=== PATIENT | male | born 1935 | race Caucasian/White ===

== ENCOUNTER 2023-06-24 14:13 | Outpatient (CLI) | payer MEDICARE, SELFPAY ==
[2023-06-24 14:38] LABS: Basophils Percent Auto 0.3 % (0.2-1.2); Eosinophils Absolute Auto 0.3 K/mm3 (0-0.3); Eosinophils Percent Auto 4.1 % (0-4.4); Hematocrit 28.5 % (42.0-52.0); Hemoglobin 8.9 g/dL (14.0-18.0); Immature Granulocyte Absolute 0.04 K/mm3 (0.00-0.031); Immature Granulocyte Percent A 0.6 % (0-0.5); Lymphocytes Absolute Auto 0.86 K/mm3 (0.9-3.2); Lymphocytes Percent Auto 13.5 % (18.3-44.2); Mean Corpuscular HGB Conc 31.2 g/dl (32-36); Mean Corpuscular Hemoglobin 30.9 pg (26-34); Mean Platelet Volume 9.5 fl (7.4-10.4); Monocytes Absolute Auto 0.7 K/mm3 (0.1-0.6); Monocytes Percent Auto 11.6 % (2.6-8.5); Neutrophils Absolute Auto 4.5 K/mm3 (1.3-6.7); Neutrophils Percent Auto 69.9 % (45.5-73.1); Platelet Count Result 194 k/mm3 (150-375); Red Blood Count 2.88 M/mm3 (4.6-6.20); Red Cell Distribution Width 15.8 % (11.5-14.5); White Blood Count 6.4 K/mm3 (4.5-10.0)
[2023-06-24 16:58] LABS: Alanine Aminotransferase 24 U/L (6-50); Alkaline Phosphatase 71 U/L (38-126); Anion Gap 7 mmol/L (8-16); Aspartate Amino Transferase 32 U/L (17-59); Bilirubin,Total 0.5 mg/dL (0.2-1.3); Blood Urea Nitrogen 42 mg/dL (9-20); Carbon Dioxide 27 mmol/L (22-30); Chloride 104 mmol/L (98-107); Estimated Glomerular Filt Rate 34; Glucose 177 mg/dL (65-110); Iron 121 ug/dL (49-181); Lactate Dehydrogenase 180 U/L (120-246); Potassium 3.9 mmol/L (3.4-5.0); Sodium 138 mmol/L (137-145)
[2023-06-24 17:09] LABS: Percent Iron Saturation 36 % (20-50)
[2023-06-24 18:06] LABS: Folic Acid > 20.0 ng/mL (2.76->20)
[2023-06-27 14:49] LABS: Methylmalonic Acid 306 nmol/L (87-318)
== END 2023-06-24 14:14 | disposition home or self-care (01) ==
LOC: ANHLAB 14:21
PROVIDERS: Nurse Practitioner Family; PCP Internal Medicine; Visit Provider Internal Medicine Hematology & Oncology
DX: D50.9 Iron deficiency anemia, unspecified (principal)
CPT/HCPCS: 36415; 80053; 82607; 82728; 82746; 83540; 83550; 83615; 83921; 85025

== ENCOUNTER 2023-07-20 09:56 | Outpatient (CLI) | payer MEDICARE, SELFPAY ==
[2023-07-20 10:16] LABS: Basophils Percent Auto 0.5 % (0.2-1.2); Eosinophils Absolute Auto 0.3 K/mm3 (0-0.3); Eosinophils Percent Auto 5.1 % (0-4.4); Hematocrit 29.9 % (42.0-52.0); Hemoglobin 9.2 g/dL (14.0-18.0); Immature Granulocyte Absolute 0.03 K/mm3 (0.00-0.031); Immature Granulocyte Percent A 0.5 % (0-0.5); Lymphocytes Absolute Auto 0.69 K/mm3 (0.9-3.2); Lymphocytes Percent Auto 10.4 % (18.3-44.2); Mean Corpuscular HGB Conc 30.8 g/dl (32-36); Mean Corpuscular Hemoglobin 31.5 pg (26-34); Mean Corpuscular Volume 102.4 fl (80-100); Mean Platelet Volume 9.5 fl (7.4-10.4); Monocytes Absolute Auto 0.6 K/mm3 (0.1-0.6); Monocytes Percent Auto 9.4 % (2.6-8.5); Neutrophils Absolute Auto 4.9 K/mm3 (1.3-6.7); Neutrophils Percent Auto 74.1 % (45.5-73.1); Platelet Count Result 236 k/mm3 (150-375); Red Blood Count 2.92 M/mm3 (4.6-6.20); Red Cell Distribution Width 16.8 % (11.5-14.5); White Blood Count 6.6 K/mm3 (4.5-10.0)
[2023-07-20 11:31] LABS: Appearance Urine Clear (Clear); Bilirubin Urine Negative (Negative); Blood Urine Negative (Negative); Color Urine Yellow (Yellow); Glucose Urine UA 3+ mg/dL (Negative); Ketones Urine Negative (Negative); Leukocyte Esterase Ur Negative LEU/UL (Negative); Nitrate Urine Negative (Negative); Protein Urine Negative (Negative); Specific Grav Ur 1.014 (1.001-1.035); Urobilinogen Urine 0.2 mg/dL (<2.0); pH Urine 5.5 (5.0-9.0)
[2023-07-20 11:39] LABS: Potassium 4.1 mmol/L (3.4-5.0)
[2023-07-20 11:41] LABS: Add Urine Microscopic? NO; Creatinine Urine 46.1 mg/dL
[2023-07-20 11:50] LABS: Alanine Aminotransferase 24 U/L (6-50); Albumin Level 3.8 g/dL (3.5-5.1); Alkaline Phosphatase 84 U/L (38-126); Anion Gap 11 mmol/L (8-16); Aspartate Amino Transferase 33 U/L (17-59); Bilirubin,Total 0.6 mg/dL (0.2-1.3); Blood Urea Nitrogen 42 mg/dL (9-20); Calcium 8.9 mg/dL (8.4-10.2); Carbon Dioxide 23 mmol/L (22-30); Chloride 109 mmol/L (98-107); Estimated Glomerular Filt Rate 30; Glucose 174 mg/dL (65-110); Phosphorus 3.8 mg/dL (2.5-4.5); Sodium 143 mmol/L (137-145); Uric Acid 6.2 mg/dL (3.5-8.5)
[2023-07-20 11:52] LABS: MALB Creatinine Ratio < 13.0 mg/g (0-30); Microalbumin Urine Random < 6.0 mg/L (0-16.7)
[2023-07-20 11:52] LABS: Vitamin D 25 Hydroxy 42.8 ng/mL
[2023-07-20 11:57] LABS: Parathyroid Intact 155.4 pg/mL (7.5-53.5)
== END 2023-07-20 09:57 | disposition home or self-care (01) ==
PROVIDERS: Visit Provider Internal Medicine Hematology & Oncology
DX: I12.9 Hypertensive chronic kidney disease with stage 1 through stage 4 chronic kidney disease, or unspecified chronic kidney disease (principal); N18.30 Chronic kidney disease, stage 3 unspecified; E55.9 Vitamin D deficiency, unspecified; E11.65 Type 2 diabetes mellitus with hyperglycemia
CPT/HCPCS: 36415; 80053; 81003; 82043; 82306; 83970; 84100; 84550; 85025

== ENCOUNTER 2024-03-14 06:35 | Outpatient (CLI) | payer MEDICARE, SELFPAY ==
--- NOTE | ~2024-03-14 | MR_ITS ---
MRI of the lumbar spine Clinical History: Radiculopathy Technique: Axial T2-weighted images, and sagittal T1-weighted, T2-weighted, and and T2 fat-sat images were acquired. Findings: There is 9 mm anterolisthesis of L4 over L5. No fracture identified. No suspicious bone mar row signal reality seen. At L1-L2, there is minimal disc bulge with moderate facet arthropathy. No central canal stenosis or n eural foraminal narrowing. At L2-L3, there is minimal disc bulge with moderate facet arthropathy. No central canal stenosis or n eural foraminal narrowing. L3-L4, there is mild disc bulge with moderate facet arthropathy. No central canal stenosis. There is minimal bilateral neural foraminal narrowing. At L4-L5, there is advanced degenerative disc narrowing. There is diffuse disc bulge/uncovering with severe facet arthropathy, and associated moderate severe spinal canal stenosis/thecal sac compression . There is moderate to advanced bilateral neural foraminal narrowing. At L5-S1, there is minimal disc bulge with moderate facet arthropathy. No central canal stenosis. The re is minimal right neural foraminal narrowing. Paravertebral soft tissues are unremarkable. Impression: 9 mm anterolisthesis of L4 over L5, with severe degenerative spondylosis at this level. Mild degenerative change in the remainder of the lumbar spine, as above. Reviewed, dictated and finalized at [facility]. Impression: 9 mm anterolisthesis of L4 over L5, with severe degenerative spondylosis at thi s level. Mild degenerative change in the remainder of the lumbar spine, as above.
== END 2024-03-14 06:36 | disposition home or self-care (01) ==
PROVIDERS: PCP Internal Medicine; Visit Provider Internal Medicine
DX: M54.16 Radiculopathy, lumbar region (principal)
CPT/HCPCS: 72148

== ENCOUNTER 2024-11-28 10:51 | Outpatient (CLI) | payer MEDICARE, SELFPAY ==
[2024-11-28 12:27] LABS: Add Urine Microscopic? NO; Appearance Urine Clear (Clear); Bilirubin Urine Negative (Negative); Blood Urine Negative (Negative); Color Urine Yellow (Yellow); Glucose Urine UA 2+ mg/dL (Negative); Ketones Urine Negative (Negative); Leukocyte Esterase Ur Negative LEU/UL (Negative); Nitrate Urine Negative (Negative); Protein Urine Negative (Negative); Specific Grav Ur 1.011 (1.001-1.035); Urobilinogen Urine 0.2 mg/dL (<2.0)
--- OUTSIDE RECORDS SUMMARY | 2024-11-28 12:35 | XMS_ITS ---
Author Organization [facility] Address [address] [place] [address] Care Team Providers Care Software Engineer Web Applications Name Role Phone Edilia Donaldson [phone] MEDICATIONS Medication SIG (Take, Route, Fr equency, Duration) Notes Start Date End Date Status Lisinopril 5 MG 1/2 Orally Once a day for 90 days 08/01/2024 Active Encounters Encounter Location Date Provider Diagnosis [facility] [place] [facility] [address] [place] [address] 08/01/2024 Edilia Donaldson PLAN OF TREATMENT Medication Medication Name Sig Start Date Stop Date Notes Lisinopril 5 MG 1/2 Orally Once a day for 90 days 08/01/20 24 Next Appt Details Provider Name:Edilia silveira, 12/05/2024 03:15:00 PM, [address], [address], [place], [address], Progress Notes * LOAN AGUILERADOB:1935 (89 yo M)Acc No.[id number]:08/01/2024 Patient: LOAN AGUILERA :1935 Age:89 Y Sex:Male Address:[address] [place], [address] * Refills Start Lisinopril Tablet, 5 MG, Orally, 90, 1/2, Once a day, 90 days, Refills=1 * * Date:
[2024-11-28 12:36] LABS: Albumin Level 3.8 g/dL (3.5-5.1); Anion Gap 7 mmol/L (4-12); Blood Urea Nitrogen 37 mg/dL (9-20); Calcium 8.6 mg/dL (8.4-10.2); Carbon Dioxide 30 mmol/L (22-30); Chloride 103 mmol/L (98-107); Estimated Glomerular Filt Rate 38; Glucose 201 mg/dL (65-110); Phosphorus 3.4 mg/dL (2.5-4.5); Potassium 3.7 mmol/L (3.4-5.0); Sodium 140 mmol/L (137-145)
--- OUTSIDE RECORDS SUMMARY | 2024-11-28 12:36 | XMS_ITS | CONTINUITY OF CARE DOCUMENT ---
Author Name dat daugherty Address Unknown Organization [facility] Address [address] [place] [address] Phone [phone] Care Team Providers Care Medical Billing And Coding Instructor Name Role Phone Kelli BARRAZA, Adilson Unavailable [phone] DANE COMER MD Unavailable [phone] KORIN BARRAZA, RHONDA Unavailable PROBLEMS Condition Status Date Provider Notes Pulmonary hypertension active Adilson Pereira MD HTN;NEG DUPLEX active Adilson Pereira MD did not want rprm BPH active Adilson Pereira MD Diabetes mellitus; active Adilson Pereira MD on farcis and turlity Hyperlipidemia;with high crp and lpa 128 active Adilson Pereira MD ANEMIA, IRON DEFICIENCY;macrocytois active Adilson Pereira MD nml 12 a nd folate Vitamin D deficiency active Adilson Iglesias Knee pain, right, chronic active dAilson ramirez MD Screening active Adilson Pereira MD Tobacco use, quit active Adilson Pereira MD t oo old to screen Renal disease, chronic, sevree;NEG US AND DUPLEX active Adilson charles da deniided, on farxaga and petra, neg uacr Sleep apnea;UARS active Adilson Pereira MD Pre-operative respiratory examination completed - Adilson Pereira MD Diastolic CHF active Abena Whitley STEWARD/STEWARDESS SECOND on f arcxag, insuranc not pay for kerenis o n petra Hyperkalemia; completed - Adilson Pereira MD Abnormal pulmonary function tests completed - Adilson Pereira MD Hypertriglyceridemia active Adilson Iglesias Atrial fibrillation;nml tsh active Emma Ellington NP Valvular heart disease active Adilson Pereira MD BACK PAIN;CHRONIC active Adilson Pereira MD PVD; active Adilson Pereira MD Granulomatous lung disease active Adilson bobby MD Pre op cardiovascular exam completed 04/13 - Adilson Pereira MD ENCOUNTERS Date Type Provider Location Encounter Diag nosis - In-person encounter Office Visit Adilson Pereira MD [facility] Diabetes mellitus;Pre op cardiovascular examGranulomatous lung disease - In-person encounter Office Visit Adilson Pereira MD [facility] Diastolic CHF - In-person encounter Office Visit Adilson Pereira MD [facility] Diastolic CHFBACK PAIN;CHRONICPVD; - In-person encounter Office Visit Adilson Pereira MD [facility] Screening - In-person encounter Office Visit Adilson Pereira MD [facility] - In-person encounter Office Visit Adilson Pereira MD [facility] ANEMIA, IRON DEFICIENCY;macrocytoisRenal disease, chronic, sevree;NEG US AND DUPLEX - In-person encounter Office Visit Adilson Pereira MD [facility] - In-person encounter Office Visit Adilson Pereira MD [facility] - In-person encounter Office Visit Adilson Pereira MD [facility] HTN;NEG DUPLEXDiabetes mellitus;Renal disease, chronic, sevree;NEG US AND DUPLEXDiastolic CHF - In-person encounter Office Visit Adilson Pereira MD [facility] Hyperkalemia;Abnormal pulmonary function testsValvular heart disease - In-person encounter Office Visit Adilson Pereira MD [facility] - In-person encounter Office Visit Adilson Pereira MD [facility] Atrial fibrillation;nml tsh - In-person encounter Office Visit Adilson Pereira MD [facility] ANEMIA, IRON DEFICIENCY;macrocytoisHypertr iglyceridemia - In-person encounter Office Visit Adilson Pereira MD [facility] ScreeningTobacco use, quit - In-person encounter Office Visit Adilson Pereira MD [facility] HTN;NEG DUPLEXDiabetes mellitus;Diastolic CHF - In-person encounter Office Visit Adilson Pereira MD [facility] Pre-operative respiratory examination - In-person encounter Office Visit Adilson Pereira MD [facility] Hyperlipidemia;with high crp and lpa 128ANEMIA, IRON DEFICIENCY;macrocytoisRenal disease, chronic, sevree;NEG US AND DUPLEXSleep apnea;UARSDiastolic CHF - In-person encounter Office Visit Adilson Pereira MD [facility] HTN;NEG DUPLEXBPHDiabetes mellitus;Hyperlipidemia;with high crp and lpa 128ANEMIA, IRON DEFICIENCY;macrocytoisVitamin D deficiencyKnee pain, right, chronicScreeningTobacco use, quitRenal disease, chronic, sevree;NEG US AND DUPLEXSleep apnea;UARS VITAL SIGNS Date Observation Value Provider Body Mass Index (Ratio) 21.24 kg/m2 Katrin Pereira MD blood pressure, diastolic 60 mm[Hg] Nery Hackett blood pressure, systolic 107 mm[Hg] Aminah Hackett oxygen saturation, oximetry 98 % Geno Hackett pulse rate 71 /min Geno Hackett respiratory rate E&M 12 /min Geno Hackett weight E&M 161 [lb_av] Geno Hackett height E&M 73 [in_i] Geno Hackett blood pressure, cuff size regular An shahab Hackett Body Mass Index (Ratio) 21.90 kg/m2 Juhi Smithjamie GRANDA respiratory rate E&M 12 /min Jayla Telles oxygen saturation, oximetry 100 % Jayla Telles pulse rate 83 /min Jayla Telles blood pressure, cuff size regular Manny mendoza Telles blood pressure, diastolic 58 mm[Hg] Manny mendoza Telles blood pressure, systolic 112 mm[Hg] Tab ithraoul Telles weight E&M 166 [lb_av] Jayla Telles height E&M 73 [in_i] Jayla Telles Body Mass Index (Ratio) 22.29 kg/m2 Katrin Pereira MD blood pressure, diastolic 62 mm[Hg] Leni nkLoggertrude blood pressure, systolic 124 mm[Hg] Hillary kLog blood pressure, cuff size regular Ke rri Chintanuenenfeldyanet blood pressure, diastolic 62 mm[Hg] Ke rri Gruenenfelder blood pressure, systolic 124 mm[Hg] Ker ri Crownenfangelique oxygen saturation, oximetry 100 % Brea Yan respiratory rate E&M 12 /min Brea morris pulse rate 91 /min Brea Benjamin lder weight E&M 169 [lb_av] Brea Crownejade lder height E&M 73 [in_i] Brea Chintanuenenfe lder Body Mass Index (Ratio) 22.29 kg/m2 Katrin Pereira MD pulse rate 84 /min [facility] blood pressure, cuff size regular [facility] blood pressure, diastolic 58 mm[Hg] [facility] blood pressure, systolic 116 mm[Hg] [facility] oxygen saturation, oximetry 98 % [facility] respiratory rate E&M 14 /min [facility] [place] weight E&M 169 [lb_av] [facility] height E&M 73 [in_i] [facility] Body Mass Index (Ratio) 22.16 kg/m2 Katrin Pereira MD pulse rate 77 /min [facility] blood pressure, cuff size regular [facility] blood pressure, diastolic 64 mm[Hg] [facility] blood pressure, systolic 137 mm[Hg] [facility] respiratory rate E&M 16 /min [facility] ille oxygen saturation, oximetry 98 % [facility] weight E&M 168 [lb_av] [facility] height E&M 73 [in_i] [facility] Body Mass Index (Ratio) 22.43 kg/m2 Katrin Pereira MD respiratory rate E&M 15 /min [facility] [place] blood pressure, cuff size regular [facility] blood pressure, diastolic 58 mm[Hg] [facility] blood pressure, systolic 108 mm[Hg] [facility] oxygen saturation, oximetry 98 % [facility] pulse rate 96 /min [facility] weight E&M 170 [lb_av] [facility] height E&M 73 [in_i] [facility] Body Mass Index (Ratio) 22.16 kg/m2 Katrin Pereira MD blood pressure, cuff size regular Ja rret blood pressure, diastolic 63 mm[Hg] Ja rret blood pressure, systolic 116 mm[Hg] Guille ret pulse rate 74 /min [facility] oxygen saturation, oximetry 99 % respiratory rate E&M 12 /min [facility] weight E&M 168 [lb_av] y height E&M 73 [in_i] [facility] Body Mass Index (Ratio) 22.43 kg/m2 Katrin Pereira MD blood pressure, cuff size regular Ke rri [facility] blood pressure, diastolic 70 mm[Hg] Ke rri Gruenenfelder blood pressure, systolic 122 mm[Hg] [facility], oximetry 98 % [facility] rate E&M 14 /min [facility] pulse rate 73 /min Brea Benjamin [facility] weight E&M 170 [lb_av] Brea Gruenenfe er height E&M 73 [in_i] Brea Gruenenfe [facility] Body Mass Index (Ratio) 23.09 kg/m2 Katrin Pereira MD blood pressure, diastolic 70 mm[Hg] Li nkLogic blood pressure, systolic 115 mm[Hg] Hillary kLogic blood pressure, diastolic 70 mm[Hg] Sa ra Cortes blood pressure, systolic 115 mm[Hg] Jaspreet a Cortes oxygen saturation, oximetry 97 % Michelle Cortes respiratory rate E&M 14 /min Michelle Si ms pulse rate 63 /min Michelle Cortes blood pressure, cuff size regular Sa ra Cortes weight E&M 175 [lb_av] Michelle Cortes height E&M 73 [in_i] Michelle Cortes Body Mass Index (Ratio) 22.95 kg/m2 Katrin Pereira MD blood pressure, cuff size large Ke rri Gruenenfelder blood pressure, diastolic 60 mm[Hg] Ke rri Gruenenfelder blood pressure, systolic 122 mm[Hg] Ker ri Gruenenfelder oxygen saturation, oximetry 98 % Brea Gruenenfelder respiratory rate E&M 16 /min Brea G ruenenfelder pulse rate 77 /min Brea Gruenenfe lder weight E&M 174 [lb_av] Brea Gruenenfe lder height E&M 73 [in_i] Brea Gruenenfe er Body Mass Index (Ratio) 23.09 kg/m2 Katrin Pereira MD blood pressure, cuff size large Ke rri Gruenenfelder blood pressure, diastolic 60 mm[Hg] Ke rri Gruenenfelder blood pressure, systolic 102 mm[Hg] Ker ri Gruenenfelder oxygen saturation, oximetry 98 % Brea Gruenenfelder respiratory rate E&M 16 /min Brea G ruenenfelder pulse rate 63 /min Brea Gruenenfe lder weight E&M 175 [lb_av] Brea Gruenenfe lder height E&M 73 [in_i] Brea Gruenenfe lder Body Mass Index (Ratio) 24.01 kg/m2 Katrin Pereira MD oxygen saturation, oximetry 95 % Nichelle Hansen respiratory rate E&M 16 /min Nichelle Hansen pulse rate 78 /min Nichelle hurd blood pressure, cuff size regular Cy dulce Hansen blood pressure, diastolic 62 mm[Hg] Cy dulce Hansen blood pressure, systolic 118 mm[Hg] Leanne Hansen weight E&M 182 [lb_av] Nichelle hurd height E&M 73 [in_i] Nichelle Blanco l Body Mass Index (Ratio) 25.06 kg/m2 Katrin Pereira MD blood pressure, diastolic 70 mm[Hg] Da surinder Justin blood pressure, systolic 118 mm[Hg] Dac ia Justin oxygen saturation, oximetry 95 % Becky Justin respiratory rate E&M 16 /min Becky V oss pulse rate 78 /min Becky Justin weight E&M 190 [lb_av] Becky Justin height E&M 73 [in_i] Becky Justin Body Mass Index (Ratio) 23.77 kg/m2 Katrin Pereira MD blood pressure, diastolic 58 mm[Hg] Efren Cruz blood pressure, systolic 103 mm[Hg] Amrita Cruz oxygen saturation, oximetry 94 % Edwin Cruz respiratory rate E&M 18 /min True Cruz pulse rate 63 /min Edwin adams weight E&M 180.2 [lb_av] Edwin douglas height E&M 73 [in_i] Edwin adams Body Mass Index (Ratio) 23.40 kg/m2 Katrin Pereira MD blood pressure, diastolic 72 mm[Hg] Efren Cruz blood pressure, systolic 129 mm[Hg] Amrita Cruz oxygen saturation, oximetry 94 % Edwin Cruz respiratory rate E&M 20 /min True Cruz pulse rate 69 /min Edwin adams weight E&M 177.4 [lb_av] Edwin douglas height E&M 73 [in_i] Edwin adams Body Mass Index (Ratio) 24.85 kg/m2 Katrin Pereira MD blood pressure, diastolic 74 mm[Hg] Efren Cruz blood pressure, systolic 152 mm[Hg] Amrita Cruz oxygen saturation, oximetry 98 % Edwin Cruz respiratory rate E&M 18 /min True Cruz pulse rate 74 /min Edwin adams weight E&M 188.4 [lb_av] Edwin douglas height E&M 73 [in_i] Edwin adams blood pressure, diastolic 70 mm[Hg] Je ssica N Amish blood pressure, systolic 140 mm[Hg] Renea adam N Amish pulse rate 81 /min Allegra N Wilso n oxygen saturation, oximetry 98 % Allegra N Amish respiratory rate E&M 16 /min Allegra N Amish Body Mass Index (Ratio) 24.47 kg/m2 Princess ica N Amish weight E&M 185.5 [lb_av] Allegra N Wils on blood pressure, diastolic 58 mm[Hg] Je ssica N Amish blood pressure, systolic 120 mm[Hg] Renea adam N Amish pulse rate 76 /min Allegra N Wilso n oxygen saturation, oximetry 98 % Allegra N Amish respiratory rate E&M 16 /min Allegra N Amish Body Mass Index (Ratio) 24.56 kg/m2 Princess ica N Amish weight E&M 186.2 [lb_av] Allegra Cormier on blood pressure, diastolic 68 mm[Hg] Amadeo Mccarthytyrayanet blood pressure, systolic 130 mm[Hg] Luke Heredia pulse rate 62 /min Brea Alexander lder oxygen saturation, oximetry 98 % Brea Heredia respiratory rate E&M 16 /min Brea quickangelique Body Mass Index (Ratio) 24.54 kg/m2 Baldwin i Fabioangelique weight E&M 186 [lb_av] Brea Alexander lder height E&M 73 [in_i] Brea Alexander lder ALLERGIES No Known Drug Allergies RESULTS Date Observation Value Provider Reference Range Interpretation Location hemoglobin A1C, blood, as % of total hemoglobin 6.5 % OF TOTAL HGB [facility] <5.7 High basophils as percent of blood leukocytes 0.3 % [facility] Normal eosinophils as percent of blood leukocytes 3.7 % [facility] Normal monocyte count, blood 10.9 % [facility] Normal lymphocyte count, blood 8.1 % [facility] Normal neutrophils as percent of blood leukocytes 77 % [facility] Normal basophils, absolute, manual 20 cells/mcL [facility] 0-200 Normal eosinophils, absolute, manual 252 cells/mcL [facility] 15-500 Normal monocytes, absolute, manual 741 cells/mcL [facility] 200-950 Normal lymphocytes, absolute 551 CELLS/UL [facility] 850-3900 Low Absolute Neutrophil count 5236 cells/mcL [facility] 1582-8255 Normal mean platelet volume 10.9 fL [facility] 7.5-12.5 Normal platelet count 218 THOUSAND/UL [facility] 140-400 Normal red blood cell distribution width 14.5 % [facility] 11.0-15.0 Normal mean corpuscular hemoglobin concentration, RBC 31.0 G/DL [facility] 32.0-36.0 Low mean corpuscular hemoglobin, RBC 32.0 pg [facility] 27.0-33.0 Normal mean corpuscular volume, RBC 103.1 fL [facility] 80.0-100.0 High hematocrit, blood 30.3 % [facility] 38.5-50.0 Low hemoglobin electrophoresis, blood 9.4 [facility] 13.2-17.1 Low erythrocyte (RBC) count 2.94 MILLION/UL [facility] 4.20-5.80 Low leukocyte (white blood cells) count, blood 6.8 THOUSAND/UL [facility] 3.8-10.8 Normal alanine aminotransferase (SGPT), serum 18 1/L [facility] 9-46 Normal aspartate aminotransferase (SGOT), serum 26 1/L [facility] 10-35 Normal alkaline phosphatase, serum 71 1/L [facility] 35-144 Normal bilirubin, serum, total 0.5 mg/dL [facility] 0.2-1.2 Normal albumin/globulin ratio, serum 1.6 (calc) [facility] 1.0-2.5 Normal globulins, serum, total 2.4 G/DL (CALC) [facility] 1.9-3.7 Normal albumin, serum 3.8 g/dL [facility] 3.6-5.1 Normal protein, total, serum 6.2 g/dL [facility] 6.1-8.1 Normal calcium, serum 8.9 mg/dL [facility] 8.6-10.3 Normal carbon dioxide, venous blood 30 mmol/L [facility] 20-32 Normal chloride, serum 97 mmol/L [facility] 98-110 Low potassium, serum 4.4 mmol/L [facility] 3.5-5.3 Normal sodium, serum 137 mmol/L [facility] 135-146 Normal urea nitrogen/creatinine ratio, serum 28 (calc) [facility] 6-22 High creatinine, serum 2.59 mg/dL [facility] 0.70-1.22 High urea nitrogen, blood 73 mg/dL [facility] 7-25 High blood glucose, random 138 mg/dL [facility] 65-99 High cholesterol, non-HDL, total 68 MG/DL (CALC) [facility] <130 cholesterol/HDL ratio, serum, percent 3.8 calc [facility] <5.0 LDL cholesterol, serum 45 MG/DL (CALC) [facility] <100 triglyceride, serum, fasting 143 mg/dL [facility] <150 HDL cholesterol, serum 24 mg/dL [facility] >39 Low cholesterol, serum 92 mg/dL [facility] <200 basophils as percent of blood leukocytes 0.4 % [facility] Normal eosinophils as percent of blood leukocytes 3.1 % [facility] Normal monocyte count, blood 10.3 % [facility] Normal lymphocyte count, blood 9.9 % [facility] Normal neutrophils as percent of blood leukocytes 76.3 % [facility] Normal basophils, absolute, manual 28 cells/mcL [facility] 0-200 Normal eosinophils, absolute, manual 217 cells/mcL [facility] 15-500 Normal monocytes, absolute, manual 721 cells/mcL [facility] 200-950 Normal lymphocytes, absolute 693 CELLS/UL [facility] 850-3900 Low Absolute Neutrophil count 5341 cells/mcL [facility] 2555-5639 Normal mean platelet volume 11.2 fL [facility] 7.5-12.5 Normal platelet count 197 THOUSAND/UL [facility] 140-400 Normal red blood cell distribution width 12.9 % [facility] 11.0-15.0 Normal mean corpuscular hemoglobin concentration, RBC 31.9 G/DL [facility] 32.0-36.0 Low mean corpuscular hemoglobin, RBC 32.9 pg [facility] 27.0-33.0 Normal mean corpuscular volume, RBC 103.0 fL [facility] 80.0-100.0 High hematocrit, blood 30.7 % [facility] 38.5-50.0 Low hemoglobin electrophoresis, blood 9.8 [facility] 13.2-17.1 Low erythrocyte (RBC) count 2.98 MILLION/UL [facility] 4.20-5.80 Low leukocyte (white blood cells) count, blood 7.0 THOUSAND/UL [facility] 3.8-10.8 Normal hyaline casts, urine 0-5 [facility] NONE SEEN Abnormal bacteria, urine microscopy NONE SEEN [facility] NONE SEEN Normal epithelial cells, urine NONE SEEN [facility] < OR = 5 Normal RBC urine by microscopy NONE SEEN [facility] < OR = 2 Normal WBC urine on microscopy NONE SEEN /HPF [facility] < OR = 5 Normal protein, urine, semiquantitative (dipstick) NEGATIVE [facility] NEGATIVE Normal blood in urine (hemoglobin) by dipstick NEGATIVE [facility] NEGATIVE Normal ketones, urine, by test strip NEGATIVE [facility] NEGATIVE Normal bilirubin, urine NEGATIVE [facility] NEGATIVE Normal glucose, urine, semiquantitative TRACE [facility] NEGATIVE Abnormal pH, urine, semiquantitative 5.5 [facility] 5.0-8.0 Normal specific gravity, urine 1.019 [facility] 1.001-1.035 Normal appearance, urine CLEAR [facility] CLEAR Normal urine color YELLOW [facility] YELLOW Normal albumin, serum 3.9 g/dL [facility] 3.6-5.1 Normal phosphate, serum 4.2 mg/dL [facility] 2.1-4.3 Normal calcium, serum 8.9 mg/dL [facility] 8.6-10.3 Normal carbon dioxide, venous blood 29 mmol/L [facility] 20-32 Normal chloride, serum 103 mmol/L [facility] 98-110 Normal potassium, serum 4.5 mmol/L [facility] 3.5-5.3 Normal sodium, serum 138 mmol/L [facility] 135-146 Normal urea nitrogen/creatinine ratio, serum 25 (calc) [facility] 6-22 High creatinine, serum 1.99 mg/dL [facility] 0.70-1.22 High urea nitrogen, blood 50 mg/dL [facility] 7-25 High blood glucose, random 122 mg/dL [facility] 65-99 High uric acid, serum 4.8 mg/dL [facility] 4.0-8.0 Normal microalbumin/creatin ine ratio, urine 4 MG/G CREAT [facility] <30 Normal microalbumin/total urine volume 3 mg/L [facility] Units converted. See lab report for original value. Normal creatinine, random, urine 84 mg/dL [facility] 20-320 Normal folate, serum >24.0 ng/mL [facility] Normal B-12, serum 533 pg/mL [facility] 200-1100 Normal ferritin, serum 37 ng/mL [facility] 24-380 Normal C-reactive protein, by highly sensitive test >10.0 mg/L [facility] High basophils as percent of blood leukocytes 0.4 % [facility] Normal eosinophils as percent of blood leukocytes 3.2 % [facility] Normal monocyte count, blood 8.3 % [facility] Normal lymphocyte count, blood 7.7 % [facility] Normal neutrophils as percent of blood leukocytes 80.4 % [facility] Normal basophils, absolute, manual 30 cells/mcL [facility] 0-200 Normal eosinophils, absolute, manual 243 cells/mcL [facility] 15-500 Normal monocytes, absolute, manual 631 cells/mcL [facility] 200-950 Normal lymphocytes, absolute 585 CELLS/UL [facility] 850-3900 Low Absolute Neutrophil count 6110 cells/mcL [facility] 1654-4540 Normal mean platelet volume 10.3 fL [facility] 7.5-12.5 Normal platelet count 329 THOUSAND/UL [facility] 140-400 Normal red blood cell distribution width 13.2 % [facility] 11.0-15.0 Normal mean corpuscular hemoglobin concentration, RBC 31.7 G/DL [facility] 32.0-36.0 Low mean corpuscular hemoglobin, RBC 30.4 pg [facility] 27.0-33.0 Normal mean corpuscular volume, RBC 96.2 fL [facility] 80.0-100.0 Normal hematocrit, blood 27.8 % [facility] 38.5-50.0 Low hemoglobin electrophoresis, blood 8.8 [facility] 13.2-17.1 Low erythrocyte (RBC) count 2.89 MILLION/UL [facility] 4.20-5.80 Low leukocyte (white blood cells) count, blood 7.6 THOUSAND/UL [facility] 3.8-10.8 Normal NT-pro BNP 2923 [facility] <450 High iron saturation percent, serum 9 % (CALC) [facility] 20-48 Low iron binding capacity, total 303 MCG/DL (CALC) [facility] 250-425 Normal iron, serum 26 ug/dL [facility] 50-180 Low hemoglobin A1C, blood, as % of total hemoglobin 6.3 % OF TOTAL HGB [facility] <5.7 High thyroxine, serum, free 1.0 ng/dL [facility] 0.8-1.8 Normal thyroid stimulating hormone, serum 1.45 u[IU]/mL [facility] 0.40-4.50 Normal cholesterol, non-HDL, total 61 MG/DL (CALC) [facility] <130 Normal cholesterol/HDL ratio, serum, percent 3.8 (calc) [facility] <5.0 Normal LDL cholesterol, serum 44 MG/DL (CALC) [facility] Normal triglyceride, serum, fasting 89 mg/dL [facility] <150 Normal HDL cholesterol, serum 22 mg/dL [facility] > OR = 40 Low cholesterol, serum 83 mg/dL [facility] <200 Normal NT-pro BNP 1813 [facility] High pro brain natriuretic peptide 470 pg/mL [facility] 0-486 microalbumin/creatin ine ratio, urine <3.1 mg/g creat [facility] 0.0-30.0 microalbumin, random, urine <3.0 ug/mL [facility] Not Estab. creatinine, random, urine 97.6 mg/dL [facility] Not Estab. calcium, serum 9.2 mg/dL [facility] 8.6-10.2 carbon dioxide, venous blood 26 mmol/L [facility] 18-29 chloride, serum 104 mmol/L [facility] 96-106 potassium, serum 4.9 mmol/L [facility] 3.5-5.2 sodium, serum 144 mmol/L [facility] 353-795 9726/12/ 23 urea nitrogen/creatinine ratio, serum 22 [facility] 10-24 eGFR if not 39 mL/min/{1.7 3_m2} [facility] >59 Low creatinine, serum 1.64 mg/dL [facility] 0.76-1.27 High urea nitrogen, blood 36 mg/dL [facility] 8-27 High blood glucose, random 193 mg/dL [facility] 65-99 High basophils as percent of blood leukocytes 0.5 % [facility] Normal eosinophils as percent of blood leukocytes 8.6 % [facility] Normal monocyte count, blood 8.6 % [facility] Normal lymphocyte count, blood 13.1 % [facility] Normal neutrophils as percent of blood leukocytes 69.2 % [facility] Normal basophils, absolute, manual 36 cells/mcL [facility] 0-200 Normal eosinophils, absolute, manual 611 cells/mcL [facility] 15-500 High monocytes, absolute, manual 611 cells/mcL [facility] 200-950 Normal lymphocytes, absolute 930 CELLS/UL [facility] 850-3900 Normal Absolute Neutrophil count 4913 cells/mcL [facility] 1583-7344 Normal mean platelet volume 9.5 fL [facility] 7.5-11.5 Normal platelet count 202 THOUSAND/UL [facility] 140-400 Normal red blood cell distribution width 15.9 % [facility] 11.0-15.0 High mean corpuscular hemoglobin concentration, RBC 33.2 G/DL [facility] 32.0-36.0 Normal mean corpuscular hemoglobin, RBC 30.6 pg [facility] 27.0-33.0 Normal mean corpuscular volume, RBC 92.4 fL [facility] 80.0-100.0 Normal hematocrit, blood 30.6 % [facility] 38.5-50.0 Low hemoglobin electrophoresis, blood 10.1 [facility] 13.2-17.1 Low erythrocyte (RBC) count 3.31 MILLION/UL [facility] 4.20-5.80 Low leukocyte (white blood cells) count, blood 7.1 THOUSAND/UL [facility] 3.8-10.8 Normal hyaline casts, urine NONE SEEN [facility] NONE SEEN Normal bacteria, urine microscopy NONE SEEN [facility] NONE SEEN Normal epithelial cells, urine NONE SEEN [facility] < OR = 5 Normal RBC urine by microscopy NONE SEEN [facility] < OR = 2 Normal WBC urine on microscopy NONE SEEN /HPF [facility] < OR = 5 Normal protein, urine, semiquantitative (dipstick) NEGATIVE [facility] NEGATIVE Normal blood in urine (hemoglobin) by dipstick NEGATIVE [facility] NEGATIVE Normal ketones, urine, by test strip NEGATIVE [facility] NEGATIVE Normal bilirubin, urine NEGATIVE [facility] NEGATIVE Normal glucose, urine, semiquantitative NEGATIVE [facility] NEGATIVE Normal pH, urine, semiquantitative < OR = 5.0 [facility] 5.0-8.0 Normal specific gravity, urine 1.009 [facility] 1.001-1.035 Normal appearance, urine CLEAR [facility] CLEAR Normal urine color YELLOW [facility] YELLOW Normal alanine aminotransferase (SGPT), serum 16 1/L [facility] 9-46 Normal aspartate aminotransferase (SGOT), serum 21 1/L [facility] 10-35 Normal alkaline phosphatase, serum 79 1/L [facility] 40-115 Normal bilirubin, serum, total 0.4 mg/dL [facility] 0.2-1.2 Normal albumin/globulin ratio, serum 1.7 (calc) [facility] 1.0-2.5 Normal globulins, serum, total 2.3 G/DL (CALC) [facility] 1.9-3.7 Normal albumin, serum 3.9 g/dL [facility] 3.6-5.1 Normal protein, total, serum 6.2 g/dL [facility] 6.1-8.1 Normal carbon dioxide, venous blood 25 mmol/L [facility] 20-31 Normal chloride, serum 109 mmol/L [facility] 98-110 Normal potassium, serum 4.2 mmol/L [facility] 3.5-5.3 Normal sodium, serum 141 mmol/L [facility] 135-146 Normal urea nitrogen/creatinine ratio, serum 17 (calc) [facility] 6-22 Normal Estimated Glomerular Filtration Rate (calc) 62 mL/min/{1.7 3_m2} [facility] > OR = 60 Normal creatinine, serum 1.26 mg/dL [facility] 0.70-1.18 High urea nitrogen, blood 22 mg/dL [facility] 7-25 Normal blood glucose, random 186 mg/dL [facility] 65-99 High uric acid, serum 6.3 mg/dL [facility] 4.0-8.0 Normal calcium, serum 9.2 mg/dL [facility] 8.6-10.3 Normal vitamin b12, serum 432.3 pg/mL [facility] 211.0 - 946.0 pro brain natriuretic peptide 394.1 pg/mL [facility] 0.0 - 450.0 ferritin, serum 545.7 ng/mL [facility] 30.0 - 400.0 High red blood cell distribution width, size [facility].6 [facility]L [facility] granulocytes, percentage of total cells, blood 1.0 % [facility] - nucleated red blood cells as percent of blood leukocytes 0.0 % [facility] - red blood cell (erythrocyte) count, per high power field 0.0 10*3/UL [facility] - eosinophils as percent of blood leukocytes 5.5 % [facility] neutrophils as percent of blood leukocytes 70.6 % [facility] - Absolute Neutrophils 5.1 CELLS/UL [facility] 1.5 - 7.8 basophils as percent of blood leukocytes 0.4 % [facility] - Absolute Basophils 0.0 CELLS/UL [facility] 0.0 - 0.2 monocytes as percent of blood leukocytes 9.1 % [facility] - Absolute Monocytes 0.7 CELLS/UL [facility] 0.2 - 1.0 lymphocytes as percent of blood leukocytes 13.4 % [facility] - Absolute Lymphocytes 1.0 CELLS/UL [facility] 0.9 - 3.9 mean platelet volume 10.7 (?) [facility] - platelet count 320.0 THOUSAND/UL [facility] 100.0 - 400.0 mean corpuscular hemoglobin concentration, RBC 31.1 G/DL [facility] 31.0 - 38.0 mean corpuscular hemoglobin, RBC 30.7 pg [facility] 25.0 - 35.0 mean corpuscular volume, RBC 98.7 fL [facility] 75.0 - 100.0 hematocrit, blood 31.5 % [facility] 35.0 - 55.0 Low hemoglobin, blood 9.8 g/dL [facility] 11.5 - 16.5 Low erythrocyte count, whole blood 3.2 MILLION/UL [facility] 3.5 - 5.5 Low iron, serum 41.0 ug/dL [facility] 31.0 - 144.0 iron saturation percent, serum 15.3 % [facility] 20.0 - 50.0 Low iron binding capacity, total 267.4 ug/dL [facility] 250.0 - 450.0 folate, serum 20.0 NG/MLM [facility] 5.6 - 45.8 vitamin b12, serum 582.3 pg/mL [facility] 211.0 - 946.0 free thyroxine index 8.2 ??g/dL [facility] 4.4 - 11.4 triiodothyronine uptake 1.0 TBI [facility] 0.8 - 1.3 thyroxine, serum, total 8.2 ??G/DL [facility] 4.5 - 11.7 thyroid stimulating hormone, serum 2.030 ??IU/ML [facility] 0.270 - 4.200 pro brain natriuretic peptide 124.7 pg/mL [facility] 0.0 - 450.0 very low density lipoproteins 28.4 mg/dL [facility] 5.0 - 40.0 LDL/HDL (low-density lipoprotein/high-den sity lipoprotein) ratio 2.0 RATIO [facility] - lipoprotein, beta, serum, point, quantitative, calculated 66.6 (?) [facility] 0.0 - 100.0 HDL cholesterol, serum 34.0 mg/dL [facility] 35.0 - 55.0 Low cholesterol, serum 129.0 mg/dL [facility] 0.0 - 200.0 triglyceride, serum, fasting 142.0 mg/dL [facility] 0.0 - 150.0 ferritin, serum 81.1 ng/mL [facility] 30.0 - 400.0 anion gap, serum 16.3 [facility] - albumin/globulin ratio, serum 2.9 g/dL [facility] 1.1 - 2.5 High globulin, serum 2.6 [facility] 2.3 - 3.8 urea nitrogen/creatinine ratio, serum 24.0 [facility] - Estimated Glomerular Filtration Rate (calc) 48.0 (?) [facility] 59.0 - Low chloride, serum 96.7 mmol/L [facility] 98.0 - 107.0 Low potassium, serum 5.3 mmol/L [facility] 3.5 - 5.1 High sodium, serum 138.0 mmol/L [facility] 136.0 - 145.0 creatinine, serum 1.5 mg/dL [facility] 0.7 - 1.2 High carbon dioxide, venous blood 25.0 mmol/L [facility] 23.0 - 31.0 albumin, serum 4.5 g/dL [facility] 3.5 - 5.2 calcium, serum 10.2 mg/dL [facility] 8.6 - 10.2 aspartate aminotransferase (SGOT), serum 22.0 1/L [facility] 0.0 - 40.0 alkaline phosphatase, serum 76.0 1/L [facility] 40.0 - 130.0 alanine aminotransferase (SGPT), serum 20.0 1/L [facility] 0.0 - 41.0 protein, total, serum 7.1 g/dL [facility] 6.6 - 8.7 bilirubin, serum, total 0.4 mg/dL [facility] 0.0 - 1.2 urea nitrogen, blood 36.0 mg/dL [facility] 8.0 - 23.0 High blood glucose, random 219.0 mg/dL [facility] 74.0 - 99.0 High red blood cell distribution width, size density 50.0 fL [facility] immature granulocytes, percentage of total cells, blood 1.0 % [facility] nucleated red blood cells as percent of blood leukocytes 0.0 % [facility] red blood cell (erythrocyte) count, per high power field 0.0 10*3/UL [facility] eosinophils as percent of blood leukocytes 9.6 % [facility] neutrophils as percent of blood leukocytes 67.4 % [facility] Absolute Neutrophils 6.4 CELLS/UL [facility] 1.5 - 7.8 basophils as percent of blood leukocytes 0.5 % [facility] - Absolute Basophils 0.1 CELLS/UL [facility] 0.0 - 0.2 monocytes as percent of blood leukocytes 8.5 % [facility] - Absolute Monocytes 0.8 CELLS/UL [facility] 0.2 - 1.0 lymphocytes as percent of blood leukocytes 13.0 % [facility] Absolute Lymphocytes 1.2 CELLS/UL [facility] 0.9 - 3.9 mean platelet volume 11.3 (?) [facility] - platelet count 237.0 THOUSAND/UL [facility] 100.0 - 400.0 mean corpuscular hemoglobin concentration, RBC 31.3 G/DL [facility] 31.0 - 38.0 mean corpuscular hemoglobin, RBC 30.1 pg [facility] 25.0 - 35.0 mean corpuscular volume, RBC 96.3 fL [facility] 75.0 - 100.0 hematocrit, blood 33.9 % [facility] 35.0 - 55.0 Low hemoglobin, blood 10.6 g/dL [facility] 11.5 - 16.5 Low erythrocyte count, whole blood 3.5 MILLION/UL [facility] 3.5 - 5.5 iron, serum 63.0 ug/dL [facility] 31.0 - 144.0 iron saturation percent, serum 16.8 % [facility] 20.0 - 50.0 Low iron binding capacity, total 375.2 ug/dL [facility] 250.0 - 450.0 Nitrite Urine Negative [facility] Negative urobilinogen, urine 0.2 E.U./dL mg/dl [facility] 0.2 - 1.0 specific gravity, urine 1.020 [facility] 1.001 - 1.035 KETONES, URINE Negative [facility] Negative bilirubin, urine Negative [facility] Negative Glucose Urine Negative [facility] Negative clarity, urine, point Clear [facility] Yellow urine color Yellow [facility] yellow to carlos activated partial thromboplastin time 27.1 SECONDS [facility] 23.0 - 33.0 prothrombin time (patient) 10.4 s [facility] 9.0 - 11.5 international normalized ratio (INR) 0.9 [facility] 0.9 - 1.1 hemoglobin A1C, blood, as % of total hemoglobin 7.6 % [facility] 4.0 - 5.6 High reticulocyte count, absolute 0.091 10*6 CELLS/UL [facility] - reticulocyte count, blood, uncorrected 2.57 % [facility] 0.50 - 2.00 High HISTORY OF MEDICATION USE Medication Status Instructions Dates Provider Indications Com ments ferrous sulfate 325 mg (65 mg iron) tablet active TAKE 1 TABLET BY MOUTH EVERY DAY 10/13 Enedina Davis tamsulosin 0.4 mg capsule active Adilson Pereira MD icosapent ethyl 1 gram capsule completed - 10/03 Adilson Pereira MD D3-1999 active Adilson Pereira MD furosemide 40 mg tablet active 1 tablet Adilson Pereira MD ferrous sulfate 325 mg (65 mg iron) tablet completed 1 tablet by mouth twice a day TAKE 1 TABLET BY MOUTH DAILY 08/26 - 10/13 Enedina Davis Farxiga 10 mg tablet active TAKE 1 TABLET DAILY. REDUCES CARDIOVASCULAR AND HEART FAILURE HOSPITALIZATIONS 04/04 Emory Xarelto 15 mg tablet active TAKE 1 TABLET DAILY WITH EVENING MEAL 01/21 Sonal Rushing icosapent ethyl 1 gram capsule active TAKE 2 CAPSULES TWICE A DAY 11/29 Sonal Rushing atorvastatin 40 mg tablet active TAKE 1 TABLET BY MOUTH EVERY DAY AT NIGHT Geno Hackett Kerendia 10 mg tablet completed Take 1 tablet by mouth once a day 10/23 - 10/16 Adilson Pereira MD ferrous sulfate 325 mg (65 mg iron) tablet completed - 08/26 Adilson Pereira MD Trulicity 1.5 mg/0.5 mL pen injector active 12/03 Desi Hampton NP #6, 84 days supply, Prescribed by RHONDA LANGLEY, Filled 12/03/2020 Farxiga 10 mg tablet completed 1 tablet by mouth once a day 11/01 - 04/04 Robin Weiner Xarelto 15 mg tablet completed 1 tablet every night 11/01 - 01/21 Adilson Serota MD dorzolamide 2% drops active 1 drop into left eye twice a day 11/01 Brea Heredia Combigan 0.2-0.5% drops active 1 drop into both eyes twice a day 11/01 Brea Heredia Vascepa 1 gram capsule completed Take 2 capsule twice a day 09/06 - 11/29 Chastity Quinton TRULICITY 0.75 MG/0.5ML SUBCUTANEOUS SOLUTION PEN-INJECTOR completed inject once weekly 10/05 - 12/26 Desi Hampton NP glyburide 5 mg tablet active once a day 09/09 Adilson Pereira MD FISH OIL 1200 MG ORAL CAPSULE completed ONE DAILY - 09/21 Adilson Pereira MD FE TABS 325 (65 Fe) MG TBEC completed 1 tablet once a day - 10/23 Edwin Cruz MULTIVITAMINS ORAL CAPSULE completed 1 tablet once a day - 10/23 Edwin Cruz VELTASSA 8.4 GM ORAL PACKET completed - 09/30 Adilson Pereira MD TRAMADOL HCL 50 MG ORAL TABLET completed take one pill 3 times a day - 03/18 Edwin Cruz TYLENOL EXTRA STRENGTH TABLET completed as needed - 10/23 Brea Heredia Travatan Z 0.004% drops active 1 drop into both eyes twice a day Brea Heredia TIMOLOL MALEATE 5 MG ORAL TABLET completed take one pill a day - 03/18 [facility] [id number] capsule active Take 1 twice a day Brea Heredia ACTOS 30 MG ORAL TABLET completed take one pill a day - 10/05 Adilson Pereira MD GLUCOPHAGE 1000 MG ORAL TABLET completed take one pill twice a day - 03/18 Edwin Cruz lisinopril 5 mg tablet active Take 1/2 tablet once a day 09/21 Adilson Pereira MD Lipitor 40 mg tablet completed Take 1 once a day - 10/23 Brea Heredia Lasix 40 mg tablet completed Take 1/2 tablet by mouth once a day - 08/26 Adilson Pereira MD GLYBURIDE 5 MG ORAL TABLET completed 2 in am and 2 in the pm - 03/18 Edwin Cruz Flomax 0.4 mg capsule completed Take 1 once a day - 10/03 Adilson Pereira MD FERROUS SULFATE 325 (65 Fe) MG ORAL TABLET completed take one pill twice a day on a empty stomach - 09/30 Adilson Pereira MD cholecalciferol (vitamin D3) 25 mcg (1,000 unit) tablet,chewable active 1 every other day Brea Heredia ASPIRIN EC 81 MG ORAL TABLET DELAYED RELEASE completed take one pill a day - 11/01 Adilson Pereira MD allopurinol 100 mg tablet active Take 1 once a day Brea Heredia SOCIAL HISTORY Date Observation Value Provider personal history of marijuana use no Adilson Pereira MD drug use no Adilson Iglesias alcohol use no Adilson Iglesias smoking, year quit 1967 Adilson bobby MD number of years as a smoker 15 a Adilson Pereira MD smoking history, tot al pack/day 1/2ppd Adilson Pereira MD cigarette use yes Adilson Pereira MD smoking status Former smoker Adilson silveira MD personal history of marijuana use no Abena Whitley NP smoking, year quit 1967 Abena Coker NP drug use no Abena Whitley NP alcohol use no Abena Whitley NP number of years as a smoker 15 a Abena Whitley STEWARD/STEWARDESS SECOND smoking history, tot al pack/day 1/2ppd Abena Whitley STEWARD/STEWARDESS SECOND cigarette use yes Abena Whitley STEWARD/STEWARDESS SECOND smoking status Former smoker Abena Duarte ri STEWARD/STEWARDESS SECOND drug use no Adilson Serota M D alcohol use no Adilson Serota M D number of years as a smoker 15 a Adilson Pereira MD smoking history, tot al pack/day 1/2ppd Adilson Pereira MD cigarette use yes Adilson Pereira MD smoking status Former smoker Adilson silveira MD drug use no Atiya Telles alcohol use no Atiya Telles number of years as a smoker 15 a Atiya Telles smoking history, tot al pack/day 1/2ppd Atiya Telles cigarette use yes Atiya Telles smoking status Former smoker Atiya Telles drug use no Atiya Telles alcohol use no Atiya Telles number of years as a smoker 15 a Atiya Telles smoking history, tot al pack/day 1/2ppd Atiya Telles cigarette use yes Atiya Telles smoking status Former smoker Atiya Telles quit smoking, stage quit Adilson bello MD drug use no Atiya Telles alcohol use no Atiya Telles number of years as a smoker 15 a Atiya Telles smoking history, tot al pack/day 1/2ppd Atiya Telles cigarette use yes Atiya Telles smoking status Former smoker Atiya Telles drug use no Marianne Ventimig charlotte DOCUMENT COORDINATOR alcohol use no Marianne Ventimig [place] DOCUMENT COORDINATOR smoking status Former smoker Marianne gr [facility] social history E&M S moking History: P atient is a former smoker. Adilson Pereira MD social history reviewed E&M revi ewed - no changes required Adilson Pereira MD number of years as a smoker 15 a Brea Heredia smoking history, tot al pack/day 1/2ppd Brea Mccarthyelder cigarette use yes Brea Mccarthy elder smoking status Former smoker Brea Redman nfelder social history reviewed E&M revi ewed - no changes required Adilson Pereira MD quit smoking, stage quit Adilson bello MD number of years as a smoker 15 a Brea Mccarthyeldyanet smoking history, tot al pack/day 1/2ppd Brea Mccarthyelder cigarette use yes Brea Mccarthy elder smoking status Former smoker Brea Redman nfelder number of grandchildren Adilson Ellington NP number of years as a smoker 15 a Brea Heredia smoking history, tot al pack/day 1/2ppd Brea Mccatrhyelder cigarette use yes Brea Mccarthy elder smoking status Former smoker Brea Redman nfelder social history E&M S moking History: Sara gross is a former smoker. Adilson Pereira MD social history reviewed E&M revi ewed - no changes required Adilson Pereira MD number of years as a smoker 15 a Nichelle Hansen smoking history, tot al pack/day 1/2ppd Nichelle Hansen cigarette use yes Nichelle law smoking status Former smoker Nichelle brian social history E&M S moking History: Sara gross is a former smoker. Adilson Pereira MD social history reviewed E&M revi ewed - no changes required Adilson Pereira MD alcohol use no Becky Justin number of years as a smoker 15 a Becky Justin smoking history, tot al pack/day 1/2ppd Becky Justin cigarette use yes Becky Justin smoking status Former smoker Becky Justin social history E&M S moking History: P atjunie is a former smoker. Adilson Pereira MD social history reviewed E&M revi ewed - no changes required Adilson Pereira MD alcohol use no Edwin Francoise nson number of years as a smoker 15 a Edwin Cruz smoking history, tot al pack/day 1/2ppd Edwin Francoisenson cigarette use yes Edwin Alessandro enson smoking status Former smoker Edwin Verma social history E&M S moking History: Sara gross is a former smoker. Adilson Pereira MD social history reviewed E&M revi ewed - no changes required Adilson Pereira MD alcohol use no Edwin Francoise nson number of years as a smoker 15 a Edwin Cruz smoking history, tot al pack/day 1/2ppd Edwin Cruz cigarette use yes Edwin Alessandro enson smoking status Former smoker Edwin Paintingson social history E&M S moking History: Sara gross is a former smoker. Adilson Pereira MD social history reviewed E&M revi ewed - no changes required Adilson Pereira MD alcohol use no Edwin Francoise nson number of years as a smoker 15 a Edwin Francoisenson smoking history, tot al pack/day 1/2ppd Edwin Cruz cigarette use yes Edwin Alessandro enson smoking status Former smoker Edwin Verma quit smoking, stage quit Adilson bello MD social history E&M S moking History: P ginny is a former smoker. Adilson Pereira MD social history reviewed E&M angel ewed - no changes required Adilson Pereira MD alcohol use no Brea Alexander lder number of years as a smoker 15 a Brea Yan smoking history, tot al pack/day 1/2ppd Brea Woodsonjoseshellytyrayanet cigarette use yes Brea merino smoking status Former smoker Brea martelder FAMILY HISTORY Family Member Condition Mother Family History of Di abetes: Father Negative FH of Coron clara Artery Disease INSURANCE PROVIDERS Payer name Policy type / Coverage type [place] party ID [facility] [id number] 1 [place] MED[employer] Medicare [id number] ADVANCE DIRECTIVES Name Date DISCUSSED - NO DECISION MADE TREATMENT PLAN Date Name Performer [id number],C,34 Adilson ramirez MD [id number],C,2923 Adilson bello MD [id number],C,6.3 Adilson bobby MD [id number],C,C hronic with known iron deficiency. He is on oral iron may benefit from transfusion. Will get recent labs from nephrology Marianne Lott [facility] [id number],C,P atient rate is controlled. He denies any palpitaions. Remains on xarelto for AC. He is however, anemic with known iron deficiency. He is seeing PCP on Thursday for further evaluation. Patient denies any active bleeding. If anemia progressive may need to stop AC and consider ISA closure. Marianne Lott [facility] [id number],C,mod pr adn mo d tr pap 30 Adilson Pereira MD [id number],S, Adilson silveira MD [id number],S, N ML b12 and folate, CORRCTED WITH IV EARNESTINE BUT STILL ANEMEC, IRON PILLS DID NOT WORK. up tod ate with colon S table on recent lab work with Dr Mendoza Pereira MD [id number],B, Adilson silveira MD [id number],S, N ML STRESS NUC 16 , NML THRYOID h ad stress 4 years ago for some sob in [place], which he says he passed Adilson Pereira MD [id number],S, Adilson silveira MD [id number],B, Adilson silveira MD [id number],S, 1 813 Adilson Pereira MD [id number],B, Adilson silveira MD [id number],S, m od tr and mild pr Adilson Pereira MD [id number],S,egfr 30 Harve y Kelli BARRAZA [id number],C,mod tr and mi ld pr Adilson Pereira MD [id number],B, Adilson silveira MD [id number],S,neg bx Adilson Pereira MD [id number],B, T he following medications were removed from the medication list: Lipitor 40 Mg Tablet (Atorvastatin) ..... Take 1 once a day His updated medication list for this problem includes: Atorvastatin 40 Mg Tablet (Atorvastatin) Vascepa 1 Gram Capsule (Icosapent ethyl) ..... Take 2 capsule twice a day C HOL: 129.0 (05/28/2016) HDL: 34.0 (05/28/2016) T.0 (05/28/2016) Adilson Pereira MD [id number],B, Adilson silveira MD [id number],S, Adilson Pereira MD [id number],S,6.1 Adilson bobby MD [id number],S, N ML STRESS NUC 16 , NML THRYOID h ad stress 4 years ago for some sob in [place], which he says he passed Adilson Pereira MD [id number],S,mild mr and p r and tr Adilson Pereira MD [id number],S, 1 813 Adilson Pereira MD [id number],S, Adilson silveira MD :33 Adilson Pereira MD Cardiology: n eg pet 24 N ML STRESS NUC 16 , h ad stress 4 years ago for some sob in [place], which he says he passed Adilson Pereira MD Cardiology:pro 2293 E F 55% (03/2024) Adilson Pereira MD Cardiology Adilson Pereira MD Cardiology: c hronic o n xarelto for ac with no bleeding issues or concerns Adilson Pereira MD Cardiology: 4 0 Adilson Pereira MD Cardiology: s evere by alex and sensilase. p atient declined intervention at this time and will consider if symptoms worsen. Adilson Pereira MD Cardiology: g ot procrit from heme o n oral iron and got cologard Adilson Pereira MD Cardiology:6.5 Adilson Pereira MD Cardiology:26 2 3 Adilson Pereira MD Cardiology: m ild mr adn mild as and mild tr and mod pr (last echo 04/09) Adilson Pereira MD Cardiology Adilson Pereira MD Cardiology Adilson Pereira MD :6.5 Adilson Pereira MD :23 Adilson Pereira MD Cardiology: M ay hold Xarelto prior to low back injection Abena Whitley STEWARD/STEWARDESS SECOND Cardiology: s evere by alex and sensilase. p atient declined intervention at this time and will consider if symptoms worsen. Abena Duartezack GRANDA Cardiology: E F 55% (03/2024) Abena Duartezack GRANDA Cardiology: 4 0 Abena Duartezack GRANDA Cardiology: M anaged per PCP H is updated medication list for this problem includes: Farxiga 10 Mg Tablet (Dapagliflozin propanediol) ..... Take 1 tablet daily. reduces cardiovascular and heart failure hospitalizations Glyburide 5 Mg Tablet (Glyburide) ..... Once a day Lisinopril 10 Mg Tablet (Lisinopril) ..... Take 1/2 tablet once a day Trulicity 1.5 Mg/0.5 Ml Pen Injector (Dulaglutide) Abena Smithjaime GRANDA Cardiology: B P today: 112/58 P rior BP: 124/62 (03/16/2024) His updated medication list for this problem includes: Furosemide 40 Mg Tablet (Furosemide) ..... 1 tablet Lisinopril 10 Mg Tablet (Lisinopril) ..... Take 1/2 tablet once a day Abena Duartezack GRANDA Cardiology: H is updated medication list for this problem includes: Icosapent Ethyl 1 Gram Capsule (Icosapent ethyl) ..... Take 2 capsules twice a day Atorvastatin 40 Mg Tablet (Atorvastatin) Alexandrasalomón Whitley NP Cardiology: m ild mr adn mild as and mild tr and mod pr (last echo 04/09) Alexandrasalomón Whitley NP Cardiology: c hronic o n xarelto for ac with no bleeding issues or concerns Abena Whitley NP :severe by alex and senslae Mohan Pereira MD :29 Adilson Pereira MD :40 Adilson Pereira MD :mild mr adn mild as and mild tr and mod pr Adilson Pereira MD Cardiology: 6 .7 Adilson Pereira MD Cardiology: n eg bx Adilson Pereira MD Cardiology: H is updated medication list for this problem includes: Icosapent Ethyl 1 Gram Capsule (Icosapent ethyl) ..... Take 2 capsules twice a day Atorvastatin 40 Mg Tablet (Atorvastatin) C HOL: 83 (05/07/2023) LDL: 44 MG/DL (CALC) (05/07/2023) HDL: 22 (05/07/2023) T (05/07/2023) C RP: >10.0 mg/L (05/08/2023) Adilson Pereira MD Cardiology Adilson Pereira MD Cardiology: n eg pet 24 N ML STRESS NUC 16 , h ad stress 4 years ago for some sob in [place], which he says he passed Adilson Pereira MD Cardiology: e f 60 2 923 Adilson Pereira MD Cardiology Adilson Pereira MD Cardiology: m od pr adn mod tr pap 30 Adilson Pereira MD Cardiology Adilson Pereira MD Cardiology:32 3 2 Adilson Pereira MD Cardiology: g ot procrit from heme o n oral iron and got cologard Adilson Pereira MD Cardiology:32 Adilson Pereira MD :32 Adilson Pereira MD Cardiology Adilson Pereira MD Cardiology: e f 60 2 923 Adilson Pereira MD Cardiology Adilson Pereira MD Cardiology:chronic Adilson Pereira MD Cardiology Adilson Pereira MD Cardiology: m od pr adn mod tr pap 30 Adilson Pereira MD Cardiology Adilson Pereira MD Cardiology: g ot procrit from heme o n oral iron and got cologard Adilson Pereira MD Cardiology: 6 .7 Adilson Pereira MD Cardiology:neg pet 2 4 N ML STRESS NUC 16 , NML THRYOID h ad stress 4 years ago for some sob in [place], which he says he passed Adilson Pereira MD Cardiology: 2 8 Adilson Pereira MD :6.7 Adilson Pereira MD :28 Adilson Pereira MD Cardiology Adilsno Pereira MD Cardiology: g ot procrit from heme o n oral iron and got cologard Adilson Pereira MD Cardiology: n eg bx Adilson Pereira MD Cardiology Adilson Pereira MD Cardiology Adilson Pereira MD Cardiology Adilson Pereira MD Cardiology: e f 60 2 923 Adilson Pereira MD Cardiology Adilson Pereira MD Cardiology: m od pr adn mod tr pap 30 Adilson Pereira MD Cardiology Adilson Pereira MD Cardiology Adilson Pereira MD Cardiology Adilson Pereira MD Cardiology: N ML STRESS NUC 16 , NML THRYOID h ad stress 4 years ago for some sob in [place], which he says he passed Adilson Pereira MD Cardiology: m od pr adn mod tr pap 30 Adilson Pereira MD Cardiology: O rders: 9 9215 HIGH 40-54min ([id number]) Adilson Pereira MD Cardiology Adilson Pereira MD Cardiology: H is updated medication list for this problem includes: Icosapent Ethyl 1 Gram Capsule (Icosapent ethyl) ..... Take 2 capsules twice a day Atorvastatin 40 Mg Tablet (Atorvastatin) C HOL: 83 (05/07/2023) LDL: 44 MG/DL (CALC) (05/07/2023) HDL: 22 (05/07/2023) T (05/07/2023) C RP: >10.0 mg/L (05/08/2023) Adilson Pereira MD Cardiology: 6 .3 Adilson Pereira MD Cardiology:ef 60 2 923 Adilson Pereira MD Cardiology: 3 0 Adilson Pereira MD Cardiology:got procr it from heme o n oral iron and got cologard Adilson Pereira MD Cardiology: 3 0 Adilson Pereira MD :30 Adilson Pereira MD :34 Adilson Pereira MD :2923 Adilson Pereira MD :6.3 Adilson Pereira MD Cardiology:Chronic w ith known iron deficiency. He is on oral iron may benefit from transfusion. Will get recent labs from nephrology Mariannejunior Lott [facility] Cardiology:Patient r ate is controlled. He denies any palpitaions. Remains on xarelto for AC. He is however, anemic with known iron deficiency. He is seeing PCP on Thursday for further evaluation. Patient denies any active bleeding. If anemia progressive may need to stop AC and consider ISA closure. Mariannejunior Lott [facility] :mod pr adn mod tr pap 30 Adilson Pereira MD Cardiology Adilson Pereira MD Cardiology: N ML b12 and folate, CORRCTED WITH IV EARNESTINE BUT STILL ANEMEC, IRON PILLS DID NOT WORK. up tod ate with colon S table on recent lab work with Dr Mendoza Pereira MD Cardiology Adilson Pereira MD Cardiology: N ML STRESS NUC 16 , NML THRYOID h ad stress 4 years ago for some sob in [place], which he says he passed Adilson Pereira MD Cardiology Adilson Pereira MD Cardiology Adilson Pereira MD Cardiology: 1 813 Adilson Pereira MD Cardiology Adilson Pereira MD Cardiology: m od tr and mild pr Adilson Pereira MD Cardiology:egfr 30 Adilson Pereira MD :mod tr and mild pr Adilson silveira MD Cardiology Adilson Pereira MD Cardiology:neg bx Adilson Pereira MD Cardiology: T he following medications were removed from the medication list: Lipitor 40 Mg Tablet (Atorvastatin) ..... Take 1 once a day His updated medication list for this problem includes: Atorvastatin 40 Mg Tablet (Atorvastatin) Vascepa 1 Gram Capsule (Icosapent ethyl) ..... Take 2 capsule twice a day C HOL: 129.0 (05/28/2016) HDL: 34.0 (05/28/2016) T.0 (05/28/2016) Adilson Pereira MD Cardiology Adilson Pereira MD Cardiology Adilosn Pereira MD Cardiology:6.1 Adilson Pereira MD Cardiology: N ML STRESS NUC 16 , NML THRYOID h ad stress 4 years ago for some sob in [place], which he says he passed Adilson Pereira MD Cardiology:mild mr and pr and tr Adilson Pereira MD Cardiology: 1 813 Adilson Pereira MD Cardiology Adilson Pereira MD :1813 Adilson Pereira MD Cardiology Follow up :not in exa cerbation Desi Hampton NP Cardiology Follow up Desi palomares NP Cardiology Follow up :labs reviewed from Dr Donaldson's office Desi Hampton NP Cardiology Follow up : O K ON RX Emma Ellington NP Cardiology Follow up :NEW on EKG today, rate controlled o btain holter monitor, echo, and start on xarelto 15mg for AC Emma Ellington NP Cardiology Follow up :A1c 7.5 H is updated medication list for this problem includes: Farxiga 10 Mg Oral Tablet (Dapagliflozin propanediol) ..... One tab by mouth daily reduces cardiovascular and heart failure hospitalizations Trulicity 0.75 Mg/0.5ml Subcutaneous Solution Pen-injector (Dulaglutide) ..... Inject once weekly Glyburide 5 Mg Oral Tablet (Glyburide) ..... Twice a day Emma Ellington NP Cardiology Follow up : N ML b12 and folate, CORRCTED WITH IV EARNESTINE BUT STILL ANEMEC, IRON PILLS DID NOT WORK. up tod ate with colon S table on recent lab work with Dr Mendoza Ellington NP Cardiology Follow up :K 4.5 09/05 20 Emma Ellington NP Cardiology Follow up :Follows Dr Mendoza walker 1.69 08/2020 Emma Ellington NP Cardiology Follow up :started on vascepa last year H is updated medication list for this problem includes: Vascepa Caps 1gm (Icosapent ethyl) ..... Take 2 capsules twice a day Lipitor 40 Mg Oral Tablet (Atorvastatin calcium) ..... Take one pill a day Emma Ellington NP Cardiology Follow up :EF 65% w/o diastolic dysfunction on echo 07/2019 Emma Ellington NP Cardiology Follow up : n ml tsh N ML STRESS NUC 16 , NML THRYOID h ad stress 4 years ago for some sob in [place], which he says he passed Emma Ellington NP Cardiology follow up : H is updated medication list for this problem includes: Vascepa 1 Gm Oral Capsule (Icosapent ethyl) ..... Two tabs twice a day Lipitor 40 Mg Oral Tablet (Atorvastatin calcium) ..... Take one pill a day C HOL: 129.0 (05/28/2016) HDL: 34.0 (05/28/2016) T.0 (05/28/2016) Adilson Pereira MD Cardiology follow up Adilson maya MD Cardiology follow up Adilson maya MD Cardiology follow up Adilson maya MD Cardiology follow up :7.1 Adilson Pereira MD Cardiology follow up : P [address], HIGH SINCE 16 Adilson Pereira MD Cardiology follow up Adilson maya MD Cardiology follow up : N ML b12 and folate, CORRCTED WITH IV EARNESTINE BUT STILL ANEMEC, IRON PILLS DID NOT WORK. up tod ate with rebecca Pereira MD Cardiology follow up : H is updated medication list for this problem includes: Vascepa 1 Gm Oral Capsule (Icosapent ethyl) ..... Two tabs twice a day Lipitor 40 Mg Oral Tablet (Atorvastatin calcium) ..... Take one pill a day C HOL: 129.0 (05/28/2016) HDL: 34.0 (05/28/2016) T.0 (05/28/2016) Adilson Pereira MD Cardiology follow up :nml tsh N ML STRESS NUC 16 , NML THRYOID h ad stress 4 years ago for some sob in [place], which he says he passed Adilson Pereira MD Cardiology follow up;echo lino Pereira MD Cardiology follow up;echo lino Pereira MD Cardiology follow up;echo pinsteven Pereira MD Cardiology follow up;echo pinsteven Pereira MD Cardiology follow up ;echo pinging: N ML b12 and folate, CORRCTED WITH IV EARNESTINE BUT STILL ANEMEC, IRON PILLS DID NOT WORK. up tod ate with rebecca Pereira MD Cardiology follow up ;echo pinging: w as on valtes in pastr Adilson Pereira MD Cardiology follow up ;echo pinging: H is updated medication list for this problem includes: Lipitor 40 Mg Oral Tablet (Atorvastatin calcium) ..... Take one pill a day C HOL: 129.0 (05/28/2016) HDL: 34.0 (05/28/2016) T.0 (05/28/2016) Adilson Pereira MD Cardiology follow up ;echo pinging: P RO 470, HIGH SINCE 16 Adilson Pereira MD Cardiology follow up ;echo pinging: M ILD DIFFUSON ABNL Adilson Pereira MD Cardiology follow up;echo pinsteven Pereira MD Cardiology: N ML b12 and folate, CORRCTED WITH IV EARNESTINE BUT STILL ANEMEC, IRON PILLS DID NOT WORK. up tod ate with rebecca ePreira MD Cardiology: N ML STRESS NUC 16 , NML THRYOID h ad stress 4 years ago for some sob in [place], which he says he passed Adilson Pereira MD Cardiology: w as on valtes in pastr Adilson Pereira MD Cardiology:PRO 470, HIGH SINCE 1 6 Adilson Pereira MD Cardiology:MILD DIFFUSON ABNL Landin jules Pereira MD Cardiology: T he following medications were removed from the medication list: Timolol Maleate 5 Mg Oral Tablet (Timolol maleate) ..... Take one pill a day His updated medication list for this problem includes: Lisinopril 40 Mg Oral Tablet (Lisinopril) ..... Take one pill a day Furosemide 20 Mg Oral Tablet (Furosemide) ..... Take 2 pills a day Aspirin Ec 81 Mg Oral Tablet Delayed Release (Aspirin) ..... Take one pill a day BP today: 129/72 P rior BP: 152/74 (07/30/2016) Labs Reviewed: C reat: 1.26 (07/28/2016) C hol: 129.0 (05/28/2016) HDL: 34.0 (05/28/2016) T.0 (05/28/2016) Adilson Pereira MD Cardiology:does noit need lung s percy Adilson Pereira MD Cardiology: N ML b12 and folate, CORRCTED WITH IV EARNESTINE BUT STILL ANEMEC, IRON PILLS DID NOT WORK. up tod ate with rebecca Pereira MD Cardiology Adilson Pereira MD Cardiology:was on valtes in past r Adilson Pereira MD Cardiology Adilson Pereira MD Cardiology:DUE TO CK D AND PETRA, NEEDS PETRA BETTER WITH VALESSA, CAN TRY WITHOUT VALTESSA AND REINTITUTE IF NEEDED Adilson Pereira MD Cardiology:HAD SRUGERY Adilson bobby MD Cardiology:CHOL: 129 .0 (05/28/2016) HDL: 34.0 (05/28/2016) T.0 (05/28/2016) His updated medication list for this problem includes: Lipitor 40 Mg Oral Tabs (Atorvastatin calcium) ..... Take one pill a day Adilson Pereira MD Cardiology:7.6 Adilson Pereira MD Cardiology:OK ON RX Adilson silveira MD Cardiology:1. Normal LV systolic function with EF 65%. 2 . Stage 2 diastolic dysfunction. 3 . Moderate left atrial enlargement. 4 . Mild mitral, tricuspid and pulmonic regurgitation. 5 . Mild pulmonary hypertension with estimated PA systolic pressure of 44 mm Hg NORMAL PROBNP Adilson Pereira MD Cardiology:Pulmonary Function Diagnosis: R estriction, bordeline N o obstruction M ild Diffusion Defect when not corrected for alveolar volume, but near normal DLCO when corrected for alveolar volume Adilson Pereira MD Cardiology:NML STRES S NUC NOW, NML PROBNP AND THRYOID h ad stress 4 years ago for some sob in [place], which he says he passed Adilson Pereira MD Cardiology:NML b12 a nd folate, CORRCTED WITH IV EARNESTINE BUT STILL ANEMEC, IRON PILLS DID NOT WORK. Adilson Pereira MD Does pt still need Renal US?:neg us Adilson Pereira MD Cardiology New Patient :many sx will kassandra Pereira MD Cardiology New Patie nt : H is updated medication list for this problem includes: Timolol Maleate 5 Mg Oral Tabs (Timolol maleate) ..... Take one pill a day Lisinopril 40 Mg Oral Tabs (Lisinopril) ..... Take one pill a day Furosemide 20 Mg Oral Tabs (Furosemide) ..... Take 2 pills a day Aspirin Ec 81 Mg Oral Tbec (Aspirin) ..... Take one pill a day BP today: 130/68 Adilson Pereira MD Cardiology New Patient Adilson bobby MD Cardiology New Patient Adilson bobby MD Cardiology New Patient Adilson bobby MD Cardiology New Patie nt :clear for surgery pending kassandra Pereira MD Cardiology New Patie nt :had stress 4 years ago for some sob in [place], which he says he passed Adilson Pereira MD Cardiology New Patie nt :7.5, over 40 years h ad adenoni nuc 4 years ago for sob at [facility] which says he passed Adilson Pereira MD Cardiology New Patient :neg bx 0 4 Adilson Pereira MD Date Name Monitor - Telemetry (Mobile Cardiac) Complete Echo CXR- PA/Lat EKG Arterial - SENSILASE Arterial Duplex Bi-L ower EX Holter Monitor 24 Hr Complete Echo Complete Echo Holter Monitor 24 Hr Stress Cardiac PET-C T ZOLL HFMS (HrtFailrM ngmtSys) Complete Echo Holter Monitor 24 Hr ZOLL HFMS (HrtFailrM ngmtSys) Complete Echo Holter Monitor 24 Hr IRON AND TOTAL IRON BINDING CAPACITY FERRITIN CBC (INCLUDES DIFF/P LT) CRP, high sensitivit y Lipoprotein (a) PROBNP, N TERMINAL CT, Coronary Calcium Score Complete Echo Holter Monitor 24 Hr RPM (remote patient monitoring) Complete Echo Holter Monitor 24 Hr PROBNP, N TERMINAL Holter Monitor 24 Hr Complete Echo Complete Echo DLCO - 44984 FRC - 58653 FVC - 57145 Complete Echo DLCO - 77384 FRC - 90097 FVC - 52509 PROBNP, N TERMINAL BASIC METABOLIC PANE L W/EGFR URINALYSIS, RANDOM, MICROALB/CREATININE B TYPE NATRIURETIC P EPTIDE (BNP) FERRITIN VITAMIN B12 IRON AND TOTAL IRON BINDING CAPACITY CBC (INCLUDES DIFF/P LT) Sleep Study Home STR - Adenosine URINALYSIS, COMPLETE W/REFLEX TO CULTURE THYROID PANEL WITH T SH, 3RD GENERATION Renal Artery Duplex DLCO - 17222 FRC - 88525 FVC - 43997 Complete Echo VITAMIN D, 25-HYDROX Y, LC/MS/MS HEMOGLOBIN A1c PROTHROMBIN TIME WIT H INR PARTIAL THROMBOPLAST IN TIME, ACTIVATED LIPID PANEL PROBNP, N TERMINAL COMPREHENSIVE METABO LIC PANEL W/EGFR VITAMIN B12 RETICULOCYTE COUNT IRON AND TOTAL IRON BINDING CAPACITY FOLATE, SERUM FERRITIN CBC (INCLUDES DIFF/P LT) HISTORY OF PROCEDURES Procedure Date Procedure Name Provider Procedure Notes S tatus Complex e/m visit add on Adilson Pereira MD completed Complex e/m visit add on Adilson Pereira MD completed EKG Adilson Pereira MD complete d EKG Adilson Pereira MD complete d Mobile Cardiac Telem etry - Tech Connor Alvarado MD completed Mobile Cardiac Telem etry - Prof Connor Alvarado MD completed EKG Adilson Pereira MD complete d FVC / MVV - 56527 Adilson Pereira MD c ompleted BLOOD COUNT HEMOGLOBIN Adilson Pereira MD completed FRC - 79667 Adilson Pereira MD complet ed SpO2 w/o 6min walk/titration Adilson Pereira MD completed DLCO - 58131 Adilson Pereira MD comple wade EKG Adilson Pereira MD complete d SNOMED-CT: 445268599323442 Current Medications Documented Adilson Pereira MD completed FVC / MVV - 83845 Adilson Pereira MD c ompleted BLOOD COUNT HEMOGLOBIN Adilson Pereira MD completed FRC - 16937 Adilson Pereira MD complet ed SpO2 - 45085 Adilson Pereira MD comple wade DLCO - 74198 Adilson Pereira MD comple wade EKG Adilson Pereira MD complete d SNOMED-CT: 164452782454594 Current Medications Documented Adilson Pereira MD completed SNOMED-CT: 475743078806009 Current Medications Documented Adilson Pereira MD completed BLOOD COUNT HEMOGLOBIN Adilson Pereira MD completed FVC - 60589 Adilson Pereira MD complet ed FRC - 86435 Adilson Pereira MD complet ed DLCO - 11672 Adilson Pereira MD comple wade EKG Adilson Pereira MD complete d SNOMED-CT: 277989858775257 Current Medications Documented Adilson Pereira MD completed
--- OUTSIDE RECORDS SUMMARY | 2024-11-28 12:36 | XMS_ITS | Encounter Summary ---
Author Organization [facility] [email or web address] Address [address] [place] [address] Care Team Providers Care Care Nurse Rn Name Role Phone Jamal Ramirez MD Primary Care Provider [phone] Encounter Details Date Type Department Care Team (Late Contact Info) Description 11/28/2024 Orders Only [facility] Oncology and Hematology [facility] [address] [place] [address] Sinna Calderon MD [address] [place] [address] Chronic anemia Social History Tobacco Use Types Packs/Day Years Used Date Smoking Tobacco: Never Smokeless Tobacco: Never Alcohol Use Standard Drinks/Week Comments Not Currently 0 (1 standard drink = 0.6 oz pur e alcohol) Sex and Gender Information Value Date Recorded Sex Assigned at Not on file Legal Sex Male 12:23 PM CDT Gender Identity Not on file Sexual Orientation Not on file documented as of this encounter Plan of Treatment Upcoming Encounters Date Type Department Care Team (Late st Contact Info) Description 01/23/2025 9:45 AM CDT Office Visit [facility] Oncology and Hematology Ward [address] [place] [address] Anson Brasher MD [address] [facility] [address] [place] [address] documented as of this encounter Visit Diagnoses Diagnosis Chronic anemia Anemia, unspecified documented in this encounter Care Teams Care Nurse Rn Relationship Specialty Start Date End Date Jamal Ramirez MD [address] [facility] [address] [place] [id number] PCP - General Internal Medicine 06/24/23 documented as of this encounter
--- OUTSIDE RECORDS SUMMARY | 2024-11-28 12:36 | XMS_ITS ---
Author Organization [facility] Address [address] [place] [address] Care Team Providers Care Marriage Counselor Name Role Phone Delvis Martinez Unavailable [phone] PROBLEMS Problem Type ICD Code Onset Dates Problem Status W/U Status Risk SNOMED Code Notes Problem Anemia, unspecified (D64.9) Active confirmed Anemia (210291105) Problem Hypotension, unspecified (I95.9) Active confirmed Hypotension (12016814) Encounters Encounter Location Date Provider Diagnosis [facility] [address] [facility] [address] [place] [address] 08/01/2024 Delvis Martinez Chronic kidney disea se, stage 3b N18.32 ; Hypotension, unspecified I95.9 ; Type 2 diabetes mellitus with hyperglycemia E11.65 and Anemia, unspecified D64.9 ASSESSMENTS Encounter Date Diagnosis Assessment Notes Treatment Notes Treatment Clinical Notes Section Notes 08/01/2024 Chronic kidney disease, stage 3b (ICD-10 - N18.32) 08/01/2024 Hypotension, unspecified (ICD-10 - I95.9) 08/01/2024 Type 2 diabetes mellitus with hyperglycemia (ICD-10 - E11.65) 08/01/2024 Anemia, unspecified (ICD-10 - D64.9) PLAN OF TREATMENT Next Appt Details Provider Name:Delvis silveira, 12/05/2024 03:15:00 PM, [address], [place], [address], Progress Notes * LOAN AGUILERADOB:1935 (89 yo M)Acc No.[id number]:08/01/2024 Progress Notes Patient: ALE LOAN Provider: DELVIS MARTINEZ M.D :1935 Age:89 Y Sex:Male Date:08/01/2024 Address:[address] [place] [address] Subjective: * Chief Complaints: * * Medical History: Objective: Assessment: * Assessment: 1. Chronic kidney disease, stage 3b - N18.32 (Primary) 2. Hypotension, unspecified - I95.9 3. Type 2 diabetes mellitus with hyperglycemia - E11.65 4. Anemia, unspecified - D64.9 Plan: * Treatment: * Billing Information: * Visit Code: 79001 Office Visit, Est Pt., Level 3. * Procedure Codes: * Sign off status: Pending * Provider: DELVIS MARTINEZ M.D Date: 08/01/2024
--- OUTSIDE RECORDS SUMMARY | 2024-11-28 12:36 | XMS_ITS | Patient Health Record ---
Author Organization [facility] Office Address [address] [facility] [address] [place] [address] Care Team Providers Care Marketing Automation Manager Name Role Phone Edilia Donaldson Unavailable [phone] RESULTS Component Value Reference Range Notes ALBUMIN, RANDOM URINE W/CREA TININE (6517) (Not yet reviewed by provider) Interpretation: Performing Lab:YADIRA [email or web address] Fercho-Osiupp93805 Elijah TrevizoKeqrvcJG[address] El Yusuf MD Notes/Report: FASTING: YES FASTING:YES PATIENT SAID ONLY THIS ORDER TODAY CREATININE, RANDOM URINE 84 20-320 mg/dL ALBUMIN, URINE 0.3 See Note: mg/dL Reference Range: Reference Range Not established ALBUMIN/CREATININE RATIO, RANDOM URINE 4 <30 mg/g creat The ADA defines abnormalities in albumin excretion as follows: Albuminuria Category Result (mg/g creatinine) Normal to Mildly increased <30 Moderately increased 30-299 Severely increased > OR = 300 The ADA recommends that at least two of three specimens collected within a 3-6 month period be abnormal before considering a patient to be within a diagnostic category. RENAL FUNCTION PANEL (65894) (Not yet reviewed by provider) Interpretation: Performing Lab:[facility]Mad[facility] CenterZndww[address]17 Administration Fatimah Hurtado ZyzxkjuXZ[address] El Yusuf Notes/Report: PATIENT SAID ONLY THIS ORDER TODAY FASTING:YES FASTING: YES GLUCOSE 122 65-99 mg/dL Fasting reference interval For someone without known diabetes, a glucose value between 100 and 125 mg/dL is consistent with prediabetes and should be confirmed with a follow-up test. UREA NITROGEN (BUN) 50 7-25 mg/dL CREATININE 1.99 0.70-1.22 mg/dL EGFR 32 > OR = 60 mL/min/1.73m2 BUN/CREATININE RATIO 25 6-22 (calc) SODIUM 138 135-146 mmol/L POTASSIUM 4.5 3.5-5.3 mmol/L CHLORIDE 103 98-110 mmol/L CARBON DIOXIDE 29 20-32 mmol/L CALCIUM 8.9 8.6-10.3 mg/dL PHOSPHATE ( PHOSPHORUS) 4.2 2.1-4.3 mg/dL ALBUMIN 3.9 3.6-5.1 g/dL URIC ACID (905) (Not yet rev iewed by provider) Interpretation: Performing Lab:[place] [address] Administration Fatimah Hurtado [address] Notes/Report: PATIENT SAID ONLY THIS ORDER TODAY FASTING:YES FASTING: YES URIC ACID 4.8 4.0-8.0 mg/dL Therapeutic ta rget for gout patients: <6.0 mg/dL CBC (INCLUDES DIFF/PLT) (471 3) (Not yet reviewed by provider) Interpretation: Performing Lab:[place] [address] Administration Fatimah Hurtado [place] [address] Nat[facility]Formerly [facility] Yusuf Notes/Report: FASTING:YES FASTING: YES PATIENT SAID ONLY THIS ORDER TODAY WHITE BLOOD CELL COUNT 7.0 3.8-10.8 Thousand/ uL RED BLOOD CELL COUNT 2.98 4.20-5.80 Million/uL HEMOGLOBIN 9.8 13.2-17.1 g/dL HEMATOCRIT 30.7 38.5-50.0 % MCV 103.0 80.0-100.0 fL MCH 32.9 27.0-33.0 pg MCHC 31.9 32.0-36.0 g/dL RDW 12.9 11.0-15.0 % PLATELET COUNT 197 140-400 Thousand/uL MPV 11.2 7.5-12.5 fL ABSOLUTE NEUTROPHILS [phone] cells/uL ABSOLUTE LYMPHOCYTES 191 395-2447 cells/uL ABSOLUTE MONOCYTES 721 200-950 cells/uL ABSOLUTE EOSINOPHILS 217 15-500 cells/uL ABSOLUTE BASOPHILS 28 0-200 cells/uL NEUTROPHILS 76.3 LYMPHOCYTES 9.9 MONOCYTES 10.3 EOSINOPHILS 3.1 BASOPHILS 0.4 URINALYSIS, COMPLETE W/REFLE X TO CULTURE (8630) (Not yet reviewed by provider) Interpretation: Performing Lab:YADIRA [email or web address] Fercho-Qcgutj32712 [place] TrevizoaKS[address] El Yusuf MD Notes/Report: PATIENT SAID ONLY THIS ORDER TODAY FASTING:YES FASTING: YES COLOR YELLOW YELLOW APPEARANCE CLEAR CLEAR SPECIFIC GRAVITY 1.019 1.001-1.035 PH 5.5 5.0-8.0 GLUCOSE TRACE NEGATIVE BILIRUBIN NEGATIVE NEGATIVE KETONES NEGATIVE NEGATIVE OCCULT BLOOD NEGATIVE NEGATIVE PROTEIN NEGATIVE NEGATIVE NITRITE NEGATIVE NEGATIVE LEUKOCYTE ESTERASE NEGATIVE NEGATIVE WBC NONE SEEN < OR = 5 /HPF RBC NONE SEEN < OR = 2 /HPF SQUAMOUS EPITHELIAL CELLS NONE SEEN < OR = 5 /HPF BACTERIA NONE SEEN NONE SEEN /HPF HYALINE CAST 0-5 NONE SEEN /LPF REFLEXIVE URINE CULTURE NO C ULTURE INDICATED COPY(IES) SENT TO: (Not yet reviewed by provider) Interpretation: Performing Lab: Notes/Report: PATIENT SAID ONLY THIS ORDER TODAY FASTING:YES FASTING: YES COPY(IES) SENT TO: [facility] [id number] [address] ALBUMIN, RANDOM URINE W/CREA TININE (1211) (Not yet reviewed by provider) Interpretation: Performing Lab:Tara MAY-Gttzmz29128 Rodolfo Trevizo[address] El Yusuf MD Notes/Report: FASTING: YES AN UPDATE OR CORRECTION HAS BEEN MADE TO NAME FASTING:YES CREATININE, RANDOM URINE 70 20-320 mg/dL ALBUMIN, URINE 0.3 See Note: mg/dL Reference Range: Reference Range Not established ALBUMIN/CREATININE RATIO, RANDOM URINE 4 <30 mg/g creat The ADA defines abnormalities in albumin excretion as follows: Albuminuria Category Result (mg/g creatinine) Normal to Mildly increased <30 Moderately increased 30-299 Severely increased > OR = 300 The ADA recommends that at least two of three specimens collected within a 3-6 month period be abnormal before considering a patient to be within a diagnostic category. PTH, INTACT AND CALCIUM (883 7) (Not yet reviewed by provider) Interpretation: Performing Lab:Tara MAY-Axambp34470 Rodolfo Trevizo[address] El Yusuf MD Notes/Report: FASTING:YES AN UPDATE OR CORRECTION HAS BEEN MADE TO NAME FASTING: YES PARATHYROID HORMONE, INTACT 85 16-77 pg/mL Interpretive Guide Intact PTH Calcium ------- Normal Parathyroid Normal Normal Hypoparathyroidism Low or Low Normal Low Hyperparathyroidism Primary Normal or High High Secondary High Normal or Low Tertiary High High Non-Parathyroid Hypercalcemia Low or Low Normal High CALCIUM 8.7 8.6-10.3 mg/dL RENAL FUNCTION PANEL (65229) (Not yet reviewed by provider) Interpretation: Performing Lab:[place] [address] Administration Fatimah Hurtado NttftqqDR[address] [facility] Notes/Report: FASTING:YES AN UPDATE OR CORRECTION HAS BEEN MADE TO NAME FASTING: YES GLUCOSE 101 65-99 mg/dL Fasting reference interval For someone without known diabetes, a glucose value between 100 and 125 mg/dL is consistent with prediabetes and should be confirmed with a follow-up test. UREA NITROGEN (BUN) 47 7-25 mg/dL CREATININE 2.17 0.70-1.22 mg/dL EGFR 29 > OR = 60 mL/min/1.73m2 BUN/CREATININE RATIO 22 6-22 (calc) SODIUM 140 135-146 mmol/L POTASSIUM 4.3 3.5-5.3 mmol/L CHLORIDE 104 98-110 mmol/L CARBON DIOXIDE 28 20-32 mmol/L CALCIUM 8.8 8.6-10.3 mg/dL PHOSPHATE ( PHOSPHORUS) 3.8 2.1-4.3 mg/dL ALBUMIN 3.8 3.6-5.1 g/dL URIC ACID (905) (Not yet rev iewed by provider) Interpretation: Performing Lab:[place] [address] Administration Fatimah Hurtado PcdstsyTC[address] [facility] Notes/Report: FASTING:YES AN UPDATE OR CORRECTION HAS BEEN MADE TO NAME FASTING: YES URIC ACID 5.9 4.0-8.0 mg/dL Therapeutic ta rget for gout patients: <6.0 mg/dL CBC (INCLUDES DIFF/PLT) (479 9) (Not yet reviewed by provider) Interpretation: Performing Lab:[place] [address] Administration Fatimah Hurtado [address] Notes/Report: FASTING:YES AN UPDATE OR CORRECTION HAS BEEN MADE TO NAME FASTING: YES WHITE BLOOD CELL COUNT 5.9 3.8-10.8 Thousand/ uL RED BLOOD CELL COUNT 2.81 4.20-5.80 Million/uL HEMOGLOBIN 8.9 13.2-17.1 g/dL HEMATOCRIT 29.4 38.5-50.0 % MCV 104.6 80.0-100.0 fL MCH 31.7 27.0-33.0 pg MCHC 30.3 32.0-36.0 g/dL RDW 13.7 11.0-15.0 % PLATELET COUNT 232 140-400 Thousand/uL MPV 10.9 7.5-12.5 fL ABSOLUTE NEUTROPHILS 4614 1952-5188 cells/uL ABSOLUTE LYMPHOCYTES 521 763-1361 cells/uL ABSOLUTE MONOCYTES 625 200-950 cells/uL ABSOLUTE EOSINOPHILS 177 15-500 cells/uL ABSOLUTE BASOPHILS 18 0-200 cells/uL NEUTROPHILS 78.2 LYMPHOCYTES 7.9 MONOCYTES 10.6 EOSINOPHILS 3.0 BASOPHILS 0.3 URINALYSIS, COMPLETE W/REFLE X TO CULTURE (3020) (Not yet reviewed by provider) Interpretation: Performing Lab:KS, Tune-Rkuvdh03072 Nas [facility], NzignyVU[address] El Yusuf MD Notes/Report: FASTING:YES AN UPDATE OR CORRECTION HAS BEEN MADE TO NAME FASTING: YES COLOR YELLOW YELLOW APPEARANCE CLEAR CLEAR SPECIFIC GRAVITY 1.017 1.001-1.035 PH 5.5 5.0-8.0 GLUCOSE NEGATIVE NEGATIVE BILIRUBIN NEGATIVE NEGATIVE KETONES NEGATIVE NEGATIVE OCCULT BLOOD NEGATIVE NEGATIVE PROTEIN NEGATIVE NEGATIVE NITRITE NEGATIVE NEGATIVE LEUKOCYTE ESTERASE TRACE NEGATIVE WBC 0-5 < OR = 5 /HPF RBC NONE SEEN < OR = 2 /HPF SQUAMOUS EPITHELIAL CELLS NONE SEEN < OR = 5 /HPF BACTERIA NONE SEEN NONE SEEN /HPF HYALINE CAST NONE SEEN NONE SEEN /LPF REFLEXIVE URINE CULTURE CULTURE INDICATED - RESULTS TO FOLLOW CULTURE, URINE, ROUTINE Micro Number: [id number] Test Status: Final Specimen Source: Urine Specimen Quality: Adequate Result: 10,000-49,000 CFU/mL of Enterococcus faecalis COMMENT: Additional non-predominating organism(s) isolated. These organisms, commonly found on external and internal genitalia, are considered colonizers. No further testing performed. E.faecalis INT DEENA AMPICILLIN S <=2 NITROFURANTOIN S <=16 VANCOMYCIN S 1 S=Susceptible I=Intermediate R=Resistant * = Not Tested NR = Not Reported NN = See Therapy Comments Your request to have a duplicate copy faxed has been acknowledged. Queued to: [id number] Queued to: [id number] CULTURE, URINE, ROUTINE SEE NOTE CULTURE INDICATED - RESULTS TO FOLLOW CULTURE, URINE, ROUTINE Micro Number: [id number] Test Status: Final Specimen Source: Urine Specimen Quality: Adequate Result: 10,000-49,000 CFU/mL of Enterococcus faecalis COMMENT: Additional non-predominating organism(s) isolated. These organisms, commonly found on external and internal genitalia, are considered colonizers. No further testing performed. E.faecalis INT DEENA AMPICILLIN S <=2 NITROFURANTOIN S <=16 VANCOMYCIN S 1 S=Susceptible I=Intermediate R=Resistant * = Not Tested NR = Not Reported NN = See Therapy Comments Your request to have a duplicate copy faxed has been acknowledged. Queued to: [id number] Queued to: [id number] VITAMIN D,25-OH,TOTAL,IA (17 306) (Not yet reviewed by provider) Interpretation: Performing Lab:YADIRA [email or web address] Fercho-Trhtsf51881 Nas Mix, ZofhfzUC[address] El Yusuf MD Notes/Report: FASTING:YES AN UPDATE OR CORRECTION HAS BEEN MADE TO NAME FASTING: YES VITAMIN D,25-OH,TOTAL,IA 55 30-100 ng/mL Vitamin D Status 25-OH Vitamin D: Deficiency: <20 ng/mL Insufficiency: 20 - 29 ng/mL Optimal: > or = 30 ng/mL For 25-OH Vitamin D testing on patients on D2-supplementation and patients for whom quantitation of D2 and D3 fractions is required, the QuestAssureD(TM) 25-OH VIT D, (D2,D3), LC/MS/MS is recommended: order code 67017 (patients >2yrs). See Note 1 Note 1 For additional information, please refer to http://education.[employer]/faq/HJV232 (This link is being provided for informational/ educational purposes only.) ALBUMIN, RANDOM URINE W/CREA TININE (8906) (Not yet reviewed by provider) Interpretation: Performing Lab:Tara MAY-Mtompv89629 [place] TrevizoaKS[address] El Yusuf MD Notes/Report: CREATININE, RANDOM URINE 63 20-320 mg/dL ALBUMIN, URINE <0.2 See Note: mg/dL Reference Range: Reference Range Not established ALBUMIN/CREATININE RATIO, RANDOM URINE NOTE <30 mg/g creat NOTE: The urine albumin value is less than 0.2 mg/dL therefore we are unable to calculate excretion and/or creatinine ratio. The ADA defines abnormalities in albumin excretion as follows: Albuminuria Category Result (mg/g creatinine) Normal to Mildly increased <30 Moderately increased 30-299 Severely increased > OR = 300 The ADA recommends that at least two of three specimens collected within a 3-6 month period be abnormal before considering a patient to be within a diagnostic category. PTH, INTACT AND CALCIUM (883 7) (Not yet reviewed by provider) Interpretation: Performing Lab:YADIRA Tune-Qvsvxr31062 [place] TrevizoaKS[address] El Yusuf MD Notes/Report: PARATHYROID HORMONE, INTACT 77 16-77 pg/mL Interpretive Guide Intact PTH Calcium ------- Normal Parathyroid Normal Normal Hypoparathyroidism Low or Low Normal Low Hyperparathyroidism Primary Normal or High High Secondary High Normal or Low Tertiary High High Non-Parathyroid Hypercalcemia Low or Low Normal High CALCIUM 9.0 8.6-10.3 mg/dL RENAL FUNCTION PANEL (71106) (Not yet reviewed by provider) Interpretation: Performing Lab:[facility]NIELLE [facility] Center[facility]nigo[address] El Yusuf Notes/Report: GLUCOSE 165 65-99 mg/dL Fasting reference interval For someone without known diabetes, a glucose value >125 mg/dL indicates that they may have diabetes and this should be confirmed with a follow-up test. UREA NITROGEN (BUN) 74 7-25 mg/dL CREATININE 2.36 0.70-1.22 mg/dL EGFR 26 > OR = 60 mL/min/1.73m2 BUN/CREATININE RATIO 31 6-22 (calc) SODIUM 137 135-146 mmol/L POTASSIUM 3.9 3.5-5.3 mmol/L CHLORIDE 101 98-110 mmol/L CARBON DIOXIDE 25 20-32 mmol/L CALCIUM 8.7 8.6-10.3 mg/dL PHOSPHATE ( PHOSPHORUS) 4.7 2.1-4.3 mg/dL ALBUMIN 3.9 3.6-5.1 g/dL URIC ACID (905) (Not yet rev iewed by provider) Interpretation: Performing Lab:DANNIELLE, [place] [address] Administration Fatimah Hurtado QrwmlvgOL[address] [facility] Anali Yusuf Notes/Report: URIC ACID 5.8 4.0-8.0 mg/dL Therapeutic ta rget for gout patients: <6.0 mg/dL CBC (INCLUDES DIFF/PLT) (639 9) (Not yet reviewed by provider) Interpretation: Performing Lab:[place]LE [place] [address] Administration Fatimah Hurtado ZbrjkucGU[address] [facility] Anali Yusuf Notes/Report: WHITE BLOOD CELL COUNT 9.5 3.8-10.8 Thousand/ uL RED BLOOD CELL COUNT 3.24 4.20-5.80 Million/uL HEMOGLOBIN 10.4 13.2-17.1 g/dL HEMATOCRIT 34.0 38.5-50.0 % MCV 104.9 80.0-100.0 fL MCH 32.1 27.0-33.0 pg MCHC 30.6 32.0-36.0 g/dL For adults, a slight decrease in the calculated MCHC value (in the range of 30 to 32 g/dL) is most likely not clinically significant; however, it should be interpreted with caution in correlation with other red cell parameters and the patient's clinical condition. RDW 13.6 11.0-15.0 % PLATELET COUNT 217 140-400 Thousand/uL MPV 11.2 7.5-12.5 fL ABSOLUTE NEUTROPHILS 7496 0259-8608 cells/uL ABSOLUTE LYMPHOCYTES 210 275-5367 cells/uL ABSOLUTE MONOCYTES 1055 200-950 cells/uL ABSOLUTE EOSINOPHILS 304 15-500 cells/uL ABSOLUTE BASOPHILS 29 0-200 cells/uL NEUTROPHILS 78.9 LYMPHOCYTES 6.5 MONOCYTES 11.1 EOSINOPHILS 3.2 BASOPHILS 0.3 URINALYSIS, COMPLETE W/REFLE X TO CULTURE (3020) (Not yet reviewed by provider) Interpretation: Performing Lab:YADIRA Tune-Mxzxxw60055 Nas Mix, CwrtbuZY[address] [facility] Yusuf MD Notes/Report: COLOR YELLOW YELLOW APPEARANCE CLEAR CLEAR SPECIFIC GRAVITY 1.015 1.001-1.035 PH < OR = 5.0 5.0-8.0 GLUCOSE NEGATIVE NEGATIVE BILIRUBIN NEGATIVE NEGATIVE KETONES NEGATIVE NEGATIVE OCCULT BLOOD NEGATIVE NEGATIVE PROTEIN NEGATIVE NEGATIVE NITRITE NEGATIVE NEGATIVE LEUKOCYTE ESTERASE NEGATIVE NEGATIVE WBC NONE SEEN < OR = 5 /HPF RBC NONE SEEN < OR = 2 /HPF SQUAMOUS EPITHELIAL CELLS NONE SEEN < OR = 5 /HPF BACTERIA NONE SEEN NONE SEEN /HPF HYALINE CAST NONE SEEN NONE SEEN /LPF REFLEXIVE URINE CULTURE NO C ULTURE INDICATED VITAMIN D,25-OH,TOTAL,IA (17 306) (Not yet reviewed by provider) Interpretation: Performing Lab:KS, Tune-Tylbto93639 Nas Morgan, QlbzkhNA[address] El Yusuf MD Notes/Report: VITAMIN D,25-OH,TOTAL,IA 38 30-100 ng/mL Vitamin D Status 25-OH Vitamin D: Deficiency: <20 ng/mL Insufficiency: 20 - 29 ng/mL Optimal: > or = 30 ng/mL For 25-OH Vitamin D testing on patients on D2-supplementation and patients for whom quantitation of D2 and D3 fractions is required, the QuestAssureD(TM) 25-OH VIT D, (D2,D3), LC/MS/MS is recommended: order code 40490 (patients >2yrs). See Note 1 Note 1 For additional information, please refer to http://education.[employer]/faq/QHF053 (This link is being provided for informational/ educational purposes only.) REASON FOR REFERRAL No Information MEDICATIONS Medication SIG (Take, Route, Fr equency, Duration) Notes Start Date End Date Status Allopurinol 100 mg TAKE 1 TABLET DAILY Active Lisinopril 10 mg TAKE 1 TABLET DAILY Active Lisinopril 5 MG 1/2 Orally Once a day for 90 days 08/01/2024 Active PROBLEMS Problem Type ICD Code Onset Dates Problem Status W/U Status Risk SNOMED Code Notes Problem Iron deficiency anemia, unspecified (D50.9) Active confirmed Iron deficiency anemia (32953099) Problem Anemia, unspecified (D64.9) Active confirmed Anemia (765429673) Problem Type 2 diabetes mellitus with hyperglycemia (E11.65) Active confirmed Hyperglycemia d ue to type 2 diabetes mellitus (807837486648162) Problem Vitamin D deficiency, unspecified (E55.9) Active confirmed Vitamin D deficiency (49033572) Problem Essential (primary) hypertension (I10) Active confirmed Essential hypertension (09757340) Problem 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 (430317619651982) Problem Hypotension, unspecified (I95.9) Active confirmed Hypotension (08131719) Problem Urinary tract infection, site not specified (N39.0) Active confirmed Urinary tract infectious disease (disorder) (19222452) Problem Chronic kidney disease, stage 3b (N18.32) Active confirmed Chronic kidney disease stage 3B (disorder) (928601411) Encounters Encounter Location Date Provider Diagnosis [facility] [place] [facility] [address] [place], [place] [address] 01/25/2024 Edilia Mendoza Chronic kidney disea se, stage 3b N18.32 ; Type 2 diabetes mellitus with hyperglycemia E11.65 ; Essential (primary) hypertension I10 ; Atherosclerotic heart disease of eek coronary artery without angina pectoris I25.10 ; Vitamin D deficiency, unspecified E55.9 and Urinary tract infection, site not specified N39.0 [place] [facility] [address] [address] 04/04/2024 Edilia Mendoza Chronic kidney disea se, stage 3b N18.32 ; Iron deficiency anemia, unspecified D50.9 ; Type 2 diabetes mellitus with hyperglycemia E11.65 and Essential (primary) hypertension I10 [facility] [address] [place] [address] 08/01/2024 Edilia Mendoza Chronic kidney disea se, stage 3b N18.32 ; Hypotension, unspecified I95.9 ; Type 2 diabetes mellitus with hyperglycemia E11.65 and Anemia, unspecified D64.9 [facility] [place] [facility] [address] [place] [address] 05/27/2024 Edilia Mendoza [facility] [place] [facility] [address] [place] [address] 08/01/2024 Edilia Mendoza ASSESSMENTS Encounter Date Diagnosis Assessment Notes Treatment Notes Treatment Clinical Notes Section Notes 01/25/2024 Chronic kidney disease, stage 3b (ICD-10 - N18.32) 04/04/2024 Chronic kidney disease, stage 3b (ICD-10 - N18.32) 08/01/2024 Chronic kidney disease, stage 3b (ICD-10 - N18.32) 08/01/2024 Hypotension, unspecified (ICD-10 - I95.9) 04/04/2024 Iron deficiency anemia, unspecified (ICD-10 - D50.9) 01/25/2024 Type 2 diabetes mellitus with hyperglycemia (ICD-10 - E11.65) 01/25/2024 Essential (primary) hypertension (ICD-10 - I10) 04/04/2024 Type 2 diabetes mellitus with hyperglycemia (ICD-10 - E11.65) 08/01/2024 Type 2 diabetes mellitus with hyperglycemia (ICD-10 - E11.65) 08/01/2024 Anemia, unspecified (ICD-10 - D64.9) 04/04/2024 Essential (primary) hypertension (ICD-10 - I10) 01/25/2024 Atherosclerotic heart disease of eek coronary artery without angina pectoris (ICD-10 - I25.10) 01/25/2024 Vitamin D deficiency, unspecified (ICD-10 - E55.9) 01/25/2024 Urinary tract infection, site not specified (ICD-10 - N39.0) PLAN OF TREATMENT Pending Test Test Name Order Date ALBUMIN, RANDOM URINE W/CREATININE (6517 ) 01/18/2024 ALBUMIN, RANDOM URINE W/CREATININE (6517 ) 03/29/2024 ALBUMIN, RANDOM URINE W/CREATININE (6517 ) 07/26/2024 PTH, INTACT AND CALCIUM (8837) PTH, INTACT AND CALCIUM (8837) PTH, INTACT AND CALCIUM (8837) RENAL FUNCTION PANEL (72912) 10/13/2023 RENAL FUNCTION PANEL (40232) 01/18/2024 RENAL FUNCTION PANEL (36412) 07/26/2024 RENAL FUNCTION PANEL (33480) 03/29/2024 MAGNESIUM (622) 10/13/2023 URIC ACID (905) 10/13/2023 URIC ACID (905) 01/18/2024 URIC ACID (905) 03/29/2024 URIC ACID (905) 07/26/2024 PROTEIN, TOTAL W/CREAT, RANDOM URINE (17 15) 10/13/2023 CBC (INCLUDES DIFF/PLT) (6399) 4 CBC (INCLUDES DIFF/PLT) (6399) 4 CBC (INCLUDES DIFF/PLT) (6399) 4 CBC (INCLUDES DIFF/PLT) (6399) 4 URINALYSIS, COMPLETE W/REFLEX TO CULTURE (3020) 03/29/2024 URINALYSIS, COMPLETE W/REFLEX TO CULTURE (3020) 07/26/2024 URINALYSIS, COMPLETE W/REFLEX TO CULTURE (3020) 01/18/2024 URINALYSIS, COMPLETE W/REFLEX TO CULTURE (3020) 10/13/2023 VITAMIN D,25-OH,TOTAL,IA (02844) 024 VITAMIN D,25-OH,TOTAL,IA (27680) 024 VITAMIN D,25-OH,TOTAL,IA (29284) 024 COPY(IES) SENT TO: 10/13/2023 COPY(IES) SENT TO: 01/18/2024 REFLEXIVE URINE CULTURE 10/13/2023 Next Appt Details Provider Name:Edilia silveira, 12/05/2024 03:15:00 PM, [address], [place], [address],
--- OUTSIDE RECORDS SUMMARY | 2024-11-28 12:36 | XMS_ITS | Data Portability ---
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 Plan of Treatment Reminders Order Date Submit Date Provider Last Modified By Organization Details Last Modified Time Details Appointments None recorded. Lab PTH (parathyroi d hormone), intact, serum or plasma 2024 025 [facility], [address], [place], [address], 5 04:06:17 vitamin D, 25-hydroxy, total, serum 2024 025 [facility], [address], [place], [address], 5 04:06:20 phosphorus, serum or plasma 2024 025 [facility], [address], [place], [address], 5 04:06:12 magnesium, serum or plasma 2024 025 [facility], [place], [address], 5 04:06:11 urinalysis complete, reflex culture 2024 025 [facility] [place], [address], 5 04:06:15 lipid panel, serum 2024 025 [facility], [address], [place], [address], 5 04:06:09 CMP, serum or plasma 2024 025 [place] [facility], [address], [place], [address], 5 04:06:13 CBC w/ auto diff 2024 025 [facility], [address], [place], [address], 5 04:06:14 T4, free, serum 2024 025 [place] [facility], [address] [place], [address], 5 04:06:18 TSH, serum or plasma 2024 025 [place] [facility], [address] [place], [address], 5 04:06:19 lipid panel, serum 2023 024 [facility], [address] [place], [address], 4 14:42:27 CMP, serum or plasma 2023 024 [facility], [place], [address], 4 14:42:28 CBC w/ auto diff 2023 024 [facility], [place], [address], 4 14:42:29 HbA1c (hemoglobin A1c), blood 2023 024 [facility], [address], [place], [address], 4 14:42:31 lipid panel, serum 2023 024 [facility], [address] [place], [address], 4 13:17:36 CMP, serum or plasma 2023 024 [facility], [address] [place], [address], 4 13:17:39 TSH, serum or plasma 2023 024 [facility], [address] [place], [address], 4 13:17:42 T4, free, serum 2023 024 [facility], [address] [place], [address], 4 13:17:41 CBC w/ auto diff 2023 024 [facility], [address] [place], [address], 4 13:17:40 HbA1c (hemoglobin A1c), blood 2023 024 [facility], [address] [place], [address], 4 13:17:43 microalbumi n/creatinin e, mass ratio, urine 2023 024 [facility], [address] [place], [address], 13:17:37 Referral None recorded. Procedures None recorded. Surgeries None recorded. Imaging None recorded. Medication Orders None recorded. Patient TargetsNo targets recorded. Patient Instructions Encounter Date Encounter Id Patient Instructions Last Modified By Organization Details Last Modified Time 09/29/2023 [id number] Hypertension- paroxysmal atrial fibrillation-hyperl ipidemia - type 2 diabetes-chronic kidney disease. Plan is to continue on current Rx. Check blood work consisting of CBC, CMP, lipid, hemoglobin A1c. Continue on current Rx follow-up in October. Portions of the record may have been created with voice recognition software. Occasional wrong-word or bvhza-c-agew substitutions may have occurred due to the inherent limitations of voice recognition software. Read the chart carefully and recognize, using context, where substitutions have occurred. Keep Appt: Thu 09:40 AM [place] [email or web address] Not available 09/29/2023 11:22:26 11/06/2023 [id number] Follow-up hypertension, paroxysmal atrial fibrillation, chronic kidney disease stage 3 and type 2 diabetes all clinically stable. Does not need any blood work performed since this was performed recently. Will continue on current Rx hemoglobin A1c is good at 6.7. Follow-up in six months. Next Appt: 6 Months Approximate Date: 05/04/2024 Portions of the record may have been created with voice recognition software. Occasional wrong-word or beowz-d-qiqv substitutions may have occurred due to the inherent limitations of voice recognition software. Read the chart carefully and recognize, using context, where substitutions have occurred. [email or web address] Not available 11/06/2023 10:56:53 03/09/2024 [id number] Probable spinal stenosis or other lumbar radiculopathy, hypertension, atrial fibrillation, hyperlipidemia type 2 diabetes. Will 1st get an MRI of the lumbar spine. If negative or no appreciable changes are noted that may account for his symptomatology may also get a arterial Doppler study done to further evaluate for possible claudication. Additional Orders and/or Directives: 1. Arterial Doppler of the lower extremities for intermittent claudication 2. MRI of the lumbar spine without contrast for lumbar radiculopathy Keep Appointment: Thu 09:40 AM [place] Portions of the record may have been created with voice recognition software. Occasional wrong-word or qotjf-w-mszt substitutions may have occurred due to the inherent limitations of voice recognition software. Read the chart carefully and recognize, using context, where substitutions have occurred. [email or web address] Not available 03/09/2024 17:12:40 05/12/2024 [id number] dementia rating scale-2* [email or web address] Not available 05/12/2024 11:49:49 alcohol misuse* [email or web address] Not available 05/12/2024 11:49:49 depression screening* [email or web address] Not available 05/12/2024 11:49:49 multi-dimensiona l health assessment questionnaire* [email or web address] Not available 05/12/2024 11:49:49 Personalized Hea lth Plan and Screening Recommendations Advance Directives - Do you have one? Yes Advance Directives - Do we have your advance directive on file in your health record? No, please bring in a copy at your earliest convenience Primary Prevention/Interven tion (prevents or decreases the chance of common diseases from occurring) Smoking Risk: Non Smoker Alcohol Misuse Screening: Negative Weight: Appropriate Physical activity: Need more exercise/physical activity Nutrition: Good Average Fall Risk (screened today): Low Vaccines Pneumococcal: Ordered Recommended today Recommended today, but you have declined No further needed Influenza: Your next one in the fall of this year Chronic Disease Risks Stroke: Low Risk Intermediate Risk I have no recommendations Act mildred diagnosis, Continue current treatment plan Heart Attack: Low risk Intermediate Risk I have no recommendations Act mildred diagnosis, Continue current treatment plan Clogging of the Arteries: Low risk Intermediate Risk I have no recommendations Act mildred diagnosis, Continue current treatment plan Diabetes: Low Risk 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, Continue current treatment plan Secondary Prevention/Interven tion (detects treatable diseases before they may cause symptoms, disability, or ) Prostate Cancer Screening: No PSA screening necessary Colon Cancer Screening: Colonoscopy No screening necessary Date Screening Last Performed: __2012 Eye Disease Screening: Dementia Risk: Low I have no recommendations Depression Screening: Negative [email or web address] Not available 05/12/2024 11:24:10 Medicare [facility] risk assessment stable. Follow-up for essential hypertension. Paroxysmal atrial fibrillation, hyperlipidemia, type 2 diabetes and chronic kidney disease stage IIIB. All clinically stable at this time. No interval complaints any new problems. Will continue with current Rx. Follow-up in four months. Check blood work consisting of CBC, CMP, lipid and hemoglobin A1c level. Follow-up in four months Follow Up: 4 Months Approximate Date: 09/09/2024 Portions of the record may have been created with voice recognition software. Occasional wrong-word or czsqe-x-xjam substitutions may have occurred due to the inherent limitations of voice recognition software. Read the chart carefully and recognize, using context, where substitutions have occurred. [email or web address] Not available 05/12/2024 11:42:48 09/15/2024 [id number] Follow-up hypertension, persistent atrial fibrillation, hyperlipidemia, type 2 diabetes and chronic kidney disease stage IIIB. All clinically stable. Check blood work consisting of CBC, CMP, lipid, phosphorus, PTH, vitamin-D level and urinalysis. May need to see Nephrology again to check on his current status is. Will continue on current Rx follow-up in four months Follow Up: 4 Months Approximate Date: 01/13/2025 Portions of record are template driven. When necessary additional context will be provided. Additionally some portions have been created with voice recognition software. Occasional wrong-word or gkrey-e-colp substitutions may have occurred due to the inherent limitations of voice recognition software. Read the chart carefully and recognize, using context, where substitutions may have occurred. Created: Rhonda Ramirez M.D. 09.15.2024 10:59 AM [email or web address] Not available 09/15/2024 11:59:23 Reason for Referral None Reported. Results Created Date Observation Date Name Description Value Unit Range Abnormal Flag Note LastModifiedBy Organization Detail LastModifiedTime 10/13/19 24 10/14/2023 LIPID PANEL , STAND CRISTAL cholesterol, total 79 mg/dL <200 normal Not Available [facility] [address] [place], [address], 10/14/2023 13:17:36 10/13/19 24 10/14/2023 LIPID PANEL , STAND CRISTAL HDL cholesterol 25 mg/dL > or = 40 low Not Available [facility] [address] [place], [address], 10/14/2023 13:17:36 10/13/19 24 10/14/2023 LIPID PANEL , STAND CRISTAL triglyceride s 131 mg/dL <150 normal Not Available [facility] [address] [place], [address], 10/14/2023 13:17:36 10/13/19 24 10/14/2023 LIPID PANEL , STAND CRISTAL LDL-choleste rol 33 mg/dL _(luis enrique c) normal Refer ence range : <100 Salud able range <100 mg/dL for prima ry preve ntion ; <70 mg/dL for patie nts with CHD or diabe tic patie nts with > or = 2 CHD risk facto rs. LDL-C is now calcu lated using the Jessica n-Hop kins calcu katie n, which is a valid ated novel jaz johnson accur aczain than the Fried douglas equat ion in the estim ation of LDL-C . Jessica brock SS et al. MONTSERRAT. 2013; 310(1 9): 2061- 2068 (http ://ed ucati on.Qu adenLifeGuard Games. com/f aq/FA Q164) Not Available [facility] [address] [address] [place], [address], 10/14/2023 13:17:36 10/13/19 24 10/14/2023 LIPID PANEL , STAND CRISTAL chol/HDLC ratio 3.2 (calc ) <5.0 normal Not Available [facility] [address] [place], [address], 10/14/2023 13:17:36 10/13/19 24 10/14/2023 LIPID PANEL , STAND CRISTAL non HDL cholesterol 54 mg/dL _(luis enrique c) <130 normal For patie nts with diabe elisa plus 1 major ASCVD risk facto r, treat ing to a non-H DL-C goal of <100 mg/dL (LDL- C of <70 mg/dL ) is irwin arrieta optio n. Not Available [facility] [address] [place], [address], 10/14/2023 13:17:36 02/27/10/14/2023 LIPID PANEL , STAND CRISTAL copy(ies) sent to: BHAVYA Johnson [address] [place] [address] Not Available [address], [address], 10/14/2023 13:17:36 10/13/19 24 10/14/2023 ALBUM IN, RANDO M URINE W/CRE ATINI NE creatinine, random urine 98 mg/dL 20-320 normal Not Available [address] [address] [place], [address], 10/14/2023 13:17:37 10/13/19 24 10/14/2023 ALBUM IN, RANDO M URINE W/CRE ATINI NE albumin, urine 0.4 mg/dL see note: normal Refer ence Range : Refer ence Range Not estab lishe d Not Available [address], [address], 10/14/2023 13:17:37 10/13/19 24 10/14/2023 ALBUM IN, RANDO M URINE W/CRE ATINI NE albumin/crea tinine ratio, random urine 4 mcg/m g_cre at <30 normal The ADA defin es abnor malit ies in album in excre tion as follo ws: Album inuri a Categ ory Resul t (mcg/ mg creat inine ) Nahomy l to Mildl y incre ased <30 Moder ately incre ased 30-29 9 Sever david incre ased > OR = 300 The ADA recom mends that at least two of three speci mens colle cted withi n a 3-6 month perio d be abnor mal befor e consi ariella g a patie nt to be withi n a diagn ostic categ ory. Not Available [address] [address] [place], [address], 10/14/2023 13:17:37 10/13/19 24 10/14/2023 ALBUM IN, RANDO M URINE W/CRE ATINI NE copy(ies) sent to: BHAVYA Johnson [address] [place] [place] [address] Not Available [address], [address], 10/14/2023 13:17:37 10/13/19 24 10/14/2023 COMPR EHENS MILDRED METAB OLIC PANEL glucose 135 mg/dL 65-99 high Fasti ng refer ence inter andres For someo ne witho ut known diabe elisa, a gluco se value >125 mg/dL indic ates that they may have diabe elisa and this shoul d be confi rmed with a follo w-up test. Not Available [address], [address], 10/14/2023 13:17:39 10/13/19 24 10/14/2023 COMPR EHENS MILDRED METAB OLIC PANEL urea nitrogen (BUN) 56 mg/dL 7-25 high Not Available [facility] [address], [address], 10/14/2023 13:17:39 10/13/19 24 10/14/2023 COMPR EHENS MILDRED METAB OLIC PANEL creatinine 2.24 mg/dL 0.70-1 .22 high Not Available [address], [address], 10/14/2023 13:17:39 10/13/19 24 10/14/2023 COMPR EHENS MILDRED METAB OLIC PANEL eGFR 28 mL/mi n/1.7 3m2 > or = 60 low Not Available [facility] [address], [address], 10/14/2023 13:17:39 10/13/19 24 10/14/2023 COMPR EHENS MILDRED METAB OLIC PANEL BUN/creatini ne ratio 25 (calc ) 6-22 high Not Available [facility] [address], [address], 10/14/2023 13:17:39 10/13/19 24 10/14/2023 COMPR EHENS MILDRED METAB OLIC PANEL sodium 140 mmol/ L 135-14 6 normal Not Available [address], [address], 10/14/2023 13:17:39 10/13/19 24 10/14/2023 COMPR EHENS MIDLRED METAB OLIC PANEL potassium 4.5 mmol/ L 3.5-5. 3 normal Not Available [address], [address], 10/14/2023 13:17:39 10/13/19 24 10/14/2023 COMPR EHENS MILDRED METAB OLIC PANEL chloride 104 mmol/ L 98-110 normal Not Available [address], [address], 10/14/2023 13:17:39 10/13/19 24 10/14/2023 COMPR EHENS MILDRED METAB OLIC PANEL carbon dioxide 29 mmol/ L 20-32 normal Not Available [address], [address], 10/14/2023 13:17:39 10/13/19 24 10/14/2023 COMPR EHENS MILDRED METAB OLIC PANEL calcium 8.9 mg/dL 8.6-10 .3 normal Not Available [address], [address], 10/14/2023 13:17:39 10/13/19 24 10/14/2023 COMPR EHENS MILDRED METAB OLIC PANEL protein, total 6.3 g/dL 6.1-8. 1 normal Not Available [address], [address], 10/14/2023 13:17:39 10/13/19 24 10/14/2023 COMPR EHENS MILDRED METAB OLIC PANEL albumin 3.9 g/dL 3.6-5. 1 normal Not Available [address] [address] [place], [address], 10/14/2023 13:17:39 10/13/19 24 10/14/2023 COMPR EHENS MILDRED METAB OLIC PANEL globulin 2.4 g/dL_ (calc ) 1.9-3. 7 normal Not Available [address] [address] [place], [address], 10/14/2023 13:17:39 10/13/19 24 10/14/2023 COMPR EHENS MILDRED METAB OLIC PANEL albumin/glob ulin ratio 1.6 (calc ) 1.0-2. 5 normal Not Available [address] [address] [place], [address], 10/14/2023 13:17:39 10/13/19 24 10/14/2023 COMPR EHENS MILDRED METAB OLIC PANEL bilirubin, total 0.5 mg/dL 0.2-1. 2 normal Not Available [address] [address] [place], [address], 10/14/2023 13:17:39 10/13/19 24 10/14/2023 COMPR EHENS MILDRED METAB OLIC PANEL alkaline phosphatase 69 U/L 35-144 normal Not Available [address] [address] [place], [address], 10/14/2023 13:17:39 10/13/19 24 10/14/2023 COMPR EHENS MILDRED METAB OLIC PANEL AST 27 U/L 10-35 normal Not Available [address] [address] [place], [address], 10/14/2023 13:17:39 10/13/19 24 10/14/2023 COMPR EHENS MILDRED METAB OLIC PANEL ALT 25 U/L 9-46 normal Not Available [address] [address] [place], [address], 10/14/2023 13:17:39 10/13/19 24 10/14/2023 COMPR MOHAN MILDRED METAB OLIC PANEL copy(ies) sent to: [place] [address] Not Available [address], [address], 10/14/2023 13:17:39 10/13/19 24 10/14/2023 CBC (INCL UDES DIFF/ PLT) white blood cell count 6.5 thous and/u L 3.8-10 .8 normal Not Available [facility] [address], [address], 10/14/2023 13:17:40 10/13/19 24 10/14/2023 CBC (INCL UDES DIFF/ PLT) red blood cell count 3.45 amanda on/uL 4.20-5 .80 low Not Available [address], [address], 10/14/2023 13:17:40 10/13/19 24 10/14/2023 CBC (INCL UDES DIFF/ PLT) hemoglobin 10.7 g/dL 13.2-1 7.1 low Not Available [address], [address], 10/14/2023 13:17:40 10/13/19 24 10/14/2023 CBC (INCL UDES DIFF/ PLT) hematocrit 33.8 % 38.5-5 0.0 low Not Available [address], [address], 10/14/2023 13:17:40 10/13/19 24 10/14/2023 CBC (INCL UDES DIFF/ PLT) MCV 98.0 fL 80.0-1 00.0 normal Not Available [facility] [address], [address], 10/14/2023 13:17:40 10/13/19 24 10/14/2023 CBC (INCL UDES DIFF/ PLT) MCH 31.0 pg 27.0-3 3.0 normal Not Available [address], [address], 10/14/2023 13:17:40 10/13/19 24 10/14/2023 CBC (INCL UDES DIFF/ PLT) MCHC 31.7 g/dL 32.0-3 6.0 low Not Available [address], [address], 10/14/2023 13:17:40 10/13/19 24 10/14/2023 CBC (INCL UDES DIFF/ PLT) RDW 14.1 % 11.0-1 5.0 normal Not Available [address], [address], 10/14/2023 13:17:40 10/13/19 24 10/14/2023 CBC (INCL UDES DIFF/ PLT) platelet count 188 thous and/u L 140-40 0 normal Not Available [address], [address], 10/14/2023 13:17:40 10/13/19 24 10/14/2023 CBC (INCL UDES DIFF/ PLT) MPV 11.0 fL 7.5-12 .5 normal Not Available [address], [address], 10/14/2023 13:17:40 10/13/19 24 10/14/2023 CBC (INCL UDES DIFF/ PLT) absolute neutrophils 4973 cells /uL 1500-7 800 normal Not Available [address], [address], 10/14/2023 13:17:40 10/13/19 24 10/14/2023 CBC (INCL UDES DIFF/ PLT) absolute lymphocytes 592 cells /uL 850-39 00 low Not Available [address] [place], [address], 10/14/2023 13:17:40 10/13/19 24 10/14/2023 CBC (INCL UDES DIFF/ PLT) absolute monocytes 657 cells /uL 200-95 0 normal Not Available [facility] [address], [address], 10/14/2023 13:17:40 10/13/19 24 10/14/2023 CBC (INCL UDES DIFF/ PLT) absolute eosinophils 260 cells /uL 15-500 normal Not Available [facility] [address], [address], 10/14/2023 13:17:40 10/13/19 24 10/14/2023 CBC (INCL UDES DIFF/ PLT) absolute basophils 20 cells /uL 0-200 normal Not Available [facility] [address], [address], 10/14/2023 13:17:40 10/13/19 24 10/14/2023 CBC (INCL UDES DIFF/ PLT) neutrophils 76.5 % normal Not Available [facility] [address], [address], 10/14/2023 13:17:40 10/13/19 24 10/14/2023 CBC (INCL UDES DIFF/ PLT) lymphocytes 9.1 % normal Not Available [facility] [address], [address], 10/14/2023 13:17:40 10/13/19 24 10/14/2023 CBC (INCL UDES DIFF/ PLT) monocytes 10.1 % normal Not Available [facility] [address], [address], 10/14/2023 13:17:40 10/13/19 24 10/14/2023 CBC (INCL UDES DIFF/ PLT) eosinophils 4.0 % normal Not Available [facility] [address] [place], [address], 10/14/2023 13:17:40 10/13/19 24 10/14/2023 CBC (INCL UDES DIFF/ PLT) basophils 0.3 % normal Not Available [address], [address], 10/14/2023 13:17:40 10/13/19 24 10/14/2023 CBC (INCL UDES DIFF/ PLT) copy(ies) sent to: BHAVYA Johnson [address] [place] [address] Not Available [address], [address], 10/14/2023 13:17:40 10/13/19 24 10/14/2023 T4, FREE T4, free 1.1 NG/dL 0.8-1. 8 normal Not Available [address], [address], 10/14/2023 13:17:41 10/13/19 24 10/14/2023 T4, FREE copy(ies) sent to: BHAVYA Johnson [address] [place] [address] Not Available [address], [address], 10/14/2023 13:17:41 10/13/19 24 10/14/2023 TSH TSH 1.55 mIU/L 0.40-4 .50 normal Not Available [address], [address], 10/14/2023 13:17:42 10/13/19 24 10/14/2023 TSH copy(ies) sent to: BHAVYA Johnson [address] [place] [address] Not Available [address], [address], 10/14/2023 13:17:42 10/13/19 24 10/14/2023 HEMOG LOBIN A1C hemoglobin A1C 6.7 %_of_ total _HGB <5.7 high For someo ne witho ut known diabe elisa, a hemog lobin A1c value of 6.5% or great er indic ates that they may have diabe elisa and this shoul d be confi rmed with a follo w-up test. For someo ne with known diabe elisa, a value <7% indic ates that their diabe elisa is well contr olled and a value great er than or equal to 7% indic ates subop timal contr ol. A1c targe ts shoul d be indiv idual ized based on durat ion of diabe elisa, age, comor bid condi tions , and other consi derat ions. Curre ntly, no conse nsus exist s regar ding use of hemog lobin A1c for diagn osis of diabe elisa for child ayanna. This test was perfo rmed on the [facility] [employer] [facility] c[facility] platf orm. Pleas e be advis ed that [facility] will move hemog lobin A1c testi ng to the [facility] platf orm soon. In gener al, melany t dallin rison of the resul ts from diffe rent platf orms is not recom jose c d. Your reque st to have a [employer]ruli ramona copy faxed has been lorna zepeda ed. Queue d to: [id number] Not Available [facility] [place] [address] [address] [place], [address], 10/14/2023 13:17:43 10/13/19 24 10/14/2023 HEMOG LOBIN A1C copy(ies) sent to: BHAVYA CATES R [address] [place] [address] Not Available [facility] [address] [place], [address], 10/14/2023 13:17:43 05/18/20 24 05/22/2024 LIPID PANEL W/REF L DIREC T LDL, CARDI O IQ(R) cholesterol, total 92 mg/dL <200 Not Available [facility] [address] [place], [address], 05/22/2024 14:42:27 05/18/20 24 05/22/2024 LIPID PANEL W/REF L DIREC T LDL, CARDI O IQ(R) HDL cholesterol 24 mg/dL >39 low Not Available [facility] [address] [place], [address], 05/22/2024 14:42:27 05/18/20 24 05/22/2024 LIPID PANEL W/REF L DIREC T LDL, CARDI O IQ(R) triglyceride s 143 mg/dL <150 Not Available [facility] [address] [address] , [place], [address], 05/22/2024 14:42:27 05/18/20 24 05/22/2024 LIPID PANEL W/REF L DIREC T LDL, CARDI O IQ(R) LDL-choleste rol 45 mg/dL _(luis enrique c) <100 Salud able range <100 mg/dL for prima ry preve ntion ; <70 mg/dL for patie nts with CHD or diabe tic patie nts with >= 2 CHD risk facto rs. LDL-C is now calcu lated using the Teach 'n Go calcu latio n, which is a valid ated novel metho d provi ding juana r accur acy than the Fried douglas equat ion in the estim ation of LDL-C . Jessica n SS et al. MONTSERRAT. 2013; 310(1 9): 2060- 2067 (http ://ed ati on.Yotta280. [employer] Network/f aq/FA Q164) LDL-C is now calcu lated using the Teach 'n Go calcu latio n, which is a valid ated novel metho d provi ding juana r accur acy than the Fried douglas equat ion in the estim ation of LDL-C . Jessica n SS et al. MONTSERRAT. 2013; 310(1 9): 2060- 2067 (http ://ed ati on.Qu estDi agnos tics. com/f aq/FA Q164) Not Available [address] [address] [place], [address], 05/22/2024 14:42:27 05/18/20 24 05/22/2024 LIPID PANEL W/REF L DIREC T LDL, CARDI O IQ(R) chol/HDLC ratio 3.8 calc <5.0 Not Available [address] [address] [address] , [place], [address], 05/22/2024 14:42:27 05/18/20 24 05/22/2024 LIPID PANEL W/REF L DIREC T LDL, CARDI O IQ(R) non HDL cholesterol 68 mg/dL _(luis enrique c) <130 For patie nts with diabe elisa plus 1 major ASCVD risk facto r, treat ing to a non-H DL-C goal of <100 mg/dL (LDL- C of <70 mg/dL ) is consi dered a thera peuti c optio n. For patie nts with diabe elisa plus 1 major ASCVD risk facto r, treat ing to a non-H DL-C goal of <100 mg/dL (LDL- C of <70 mg/dL ) is consi dered a thera peuti c optio n. Not Available [address] [address] [address] , [place], [address], 05/22/2024 14:42:27 05/18/2005/22/2024 LIPID PANEL W/REF L DIREC T LDL, CARDI O IQ(R) copy(ies) sent to: [facility] [id number] [place] [address] [facility] [address] [place] [address] Not Available [address] [place] [address] [place], [address], 05/22/2024 14:42:27 05/18/20 24 05/22/2024 COMPR EHENS MILDRED METAB OLIC PANEL glucose 138 mg/dL 65-99 high Fasti ng refer ence inter andres For someo ne witho ut known diabe elisa, a gluco se value >125 mg/dL indic ates that they may have diabe elisa and this shoul d be confi rmed with a follo w-up test. Not Available [address], [address], 05/22/2024 14:42:28 05/18/2005/22/2024 COMPR EHENS MILDRED METAB OLIC PANEL urea nitrogen (BUN) 73 mg/dL 7-25 high Not Available [facility] [address], [address], 05/22/2024 14:42:28 05/18/2005/22/2024 COMPR EHENS MILDRED METAB OLIC PANEL creatinine 2.59 mg/dL 0.70-1 .22 high Not Available [address], [address], 05/22/2024 14:42:28 05/18/20 24 05/22/2024 COMPR EHENS MILDRED METAB OLIC PANEL eGFR 23 mL/mi n/1.7 3m2 > or = 60 low Not Available [address], [address], 05/22/2024 14:42:28 05/18/20 24 05/22/2024 COMPR EHENS MILDRED METAB OLIC PANEL BUN/creatini ne ratio 28 (calc ) 6-22 high Not Available [address], [address], 05/22/2024 14:42:28 05/18/20 24 05/22/2024 COMPR EHENS MILDRED METAB OLIC PANEL sodium 137 mmol/ L 135-14 6 normal Not Available [address], [address], 05/22/2024 14:42:28 05/18/20 24 05/22/2024 COMPR EHENS MILDRED METAB OLIC PANEL potassium 4.4 mmol/ L 3.5-5. 3 normal Not Available [address], [address], 05/22/2024 14:42:28 05/18/20 24 05/22/2024 COMPR EHENS MILDRED METAB OLIC PANEL chloride 97 mmol/ L 98-110 low Not Available [address], [address], 05/22/2024 14:42:28 05/18/2005/22/2024 COMPR EHENS MILDRED METAB OLIC PANEL carbon dioxide 30 mmol/ L 20-32 normal Not Available [address], [address], 05/22/2024 14:42:28 05/18/20 24 05/22/2024 COMPR EHENS MILDRED METAB OLIC PANEL calcium 8.9 mg/dL 8.6-10 .3 normal Not Available [address], [address], 05/22/2024 14:42:28 05/18/2005/22/2024 COMPR EHENS MILDRED METAB OLIC PANEL protein, total 6.2 g/dL 6.1-8. 1 normal Not Available [address], [address], 05/22/2024 14:42:28 05/18/20 24 05/22/2024 COMPR EHENS MILDRED METAB OLIC PANEL albumin 3.8 g/dL 3.6-5. 1 normal Not Available [address], [address], 05/22/2024 14:42:28 05/18/20 24 05/22/2024 COMPR EHENS MILDRED METAB OLIC PANEL globulin 2.4 g/dL_ (calc ) 1.9-3. 7 normal Not Available [address], [address], 05/22/2024 14:42:28 05/18/20 24 05/22/2024 COMPR EHENS MILDRED METAB OLIC PANEL albumin/glob ulin ratio 1.6 (calc ) 1.0-2. 5 normal Not Available [address], [address], 05/22/2024 14:42:28 05/18/20 24 05/22/2024 COMPR EHENS MILDRED METAB OLIC PANEL bilirubin, total 0.5 mg/dL 0.2-1. 2 normal Not Available [address], [address], 05/22/2024 14:42:28 05/18/20 24 05/22/2024 COMPR EHENS MILDRED METAB OLIC PANEL alkaline phosphatase 71 U/L 35-144 normal Not Available [address], [address], 05/22/2024 14:42:28 05/18/20 24 05/22/2024 COMPR EHENS MILDRED METAB OLIC PANEL AST 26 U/L 10-35 normal Not Available [address], [address], 05/22/2024 14:42:28 05/18/20 24 05/22/2024 COMPR EHENS MILDRED METAB OLIC PANEL ALT 18 U/L 9-46 normal Not Available [address], [address], 05/22/2024 14:42:28 05/18/20 24 05/22/2024 COMPR EHENS MILDRED METAB OLIC PANEL copy(ies) sent to: [facility] [id number] [place] [address] [facility] [facility] [address] [place] [address] Not Available [address], [address], 05/22/2024 14:42:28 05/18/20 24 05/22/2024 CBC (INCL UDES DIFF/ PLT) white blood cell count 6.8 thous and/u L 3.8-10 .8 normal Not Available [address], [address], 05/22/2024 14:42:29 05/18/2005/22/2024 CBC (INCL UDES DIFF/ PLT) red blood cell count 2.94 amanda on/uL 4.20-5 .80 low Not Available [address], [address], 05/22/2024 14:42:29 05/18/20 24 05/22/2024 CBC (INCL UDES DIFF/ PLT) hemoglobin 9.4 g/dL 13.2-1 7.1 low Not Available [address], [address], 05/22/2024 14:42:29 05/18/20 24 05/22/2024 CBC (INCL UDES DIFF/ PLT) hematocrit 30.3 % 38.5-5 0.0 low Not Available [address], [address], 05/22/2024 14:42:29 05/18/2005/22/2024 CBC (INCL UDES DIFF/ PLT) MCV 103.1 fL 80.0-1 00.0 high Not Available [address], [address], 05/22/2024 14:42:29 05/18/2005/22/2024 CBC (INCL UDES DIFF/ PLT) MCH 32.0 pg 27.0-3 3.0 normal Not Available [facility] [address], [address], 05/22/2024 14:42:29 05/18/20 24 05/22/2024 CBC (INCL UDES DIFF/ PLT) MCHC 31.0 g/dL 32.0-3 6.0 low For adult s, a sligh t decre ase in the calcu lated MCHC value (in the range of 30 to 32 g/dL) is most likel y not clini harriet signi ficchandu t; ceasrev er, it shoul d be inter prete d with cauti on in corre latio n with other red cell glen eters and the patie nt's clini luis enrique condi tion. Not Available [address], [address], 05/22/2024 14:42:29 05/18/2005/22/2024 CBC (INCL UDES DIFF/ PLT) RDW 14.5 % 11.0-1 5.0 normal Not Available [address], [address], 05/22/2024 14:42:29 05/18/20 24 05/22/2024 CBC (INCL UDES DIFF/ PLT) platelet count 218 thous and/u L 140-40 0 normal Not Available [address], [address], 05/22/2024 14:42:29 05/18/20 24 05/22/2024 CBC (INCL UDES DIFF/ PLT) MPV 10.9 fL 7.5-12 .5 normal Not Available [address], [address], 05/22/2024 14:42:29 05/18/2005/22/2024 CBC (INCL UDES DIFF/ PLT) absolute neutrophils 5236 cells /uL 1500-7 800 normal Not Available [facility] [address], [address], 05/22/2024 14:42:29 05/18/20 24 05/22/2024 CBC (INCL UDES DIFF/ PLT) absolute lymphocytes 551 cells /uL 850-39 00 low Not Available [address], [address], 05/22/2024 14:42:29 05/18/2005/22/2024 CBC (INCL UDES DIFF/ PLT) absolute monocytes 741 cells /uL 200-95 0 normal Not Available [address], [address], 05/22/2024 14:42:29 05/18/2005/22/2024 CBC (INCL UDES DIFF/ PLT) absolute eosinophils 252 cells /uL 15-500 normal Not Available [address], [address], 05/22/2024 14:42:29 05/18/2005/22/2024 CBC (INCL UDES DIFF/ PLT) absolute basophils 20 cells /uL 0-200 normal Not Available [address], [address], 05/22/2024 14:42:29 05/18/2005/22/2024 CBC (INCL UDES DIFF/ PLT) neutrophils 77 % normal Not Available [address], [address], 05/22/2024 14:42:29 05/18/2005/22/2024 CBC (INCL UDES DIFF/ PLT) lymphocytes 8.1 % normal Not Available [address], [address], 05/22/2024 14:42:29 05/18/2005/22/2024 CBC (INCL UDES DIFF/ PLT) monocytes 10.9 % normal Not Available [address], [address], 05/22/2024 14:42:29 05/18/20 24 05/22/2024 CBC (INCL UDES DIFF/ PLT) eosinophils 3.7 % normal Not Available [facility] [address] [address] [place], [address], 05/22/2024 14:42:29 05/18/20 24 05/22/2024 CBC (INCL UDES DIFF/ PLT) basophils 0.3 % normal Not Available [facility] [address] [place], [address], 05/22/2024 14:42:29 05/18/20 24 05/22/2024 CBC (INCL UDES DIFF/ PLT) copy(ies) sent to: [facility] [address] [id number] [facility] [address] [place] [address] [address] [facility] [address] [facility] [address] [place] [address] Not Available [address] [address] [place], [address], 05/22/2024 14:42:29 05/18/20 24 05/22/2024 HEMOG LOBIN A1C hemoglobin A1C 6.5 %_of_ total _HGB <5.7 high For someo ne witho ut known diabe elisa, a hemog lobin A1c value of 6.5% or great er indic ates that they may have diabe elisa and this shoul d be confi rmed with a follo w-up test. For someo ne with known diabe elisa, a value <7% indic ates that their diabe elisa is well contr olled and a value great er than or equal to 7% indic ates subop timal contr ol. A1c targe ts shoul d be indiv idual ized based on durat ion of diabe elisa, age, comor bid condi tions , and other consi derat ions. Curre ntly, no conse nsus exist s regar ding use of hemog lobin A1c for diagn osis of diabe elisa for child ayanna. Not Available [facility] [address] [address] , [place], [address], 05/22/2024 14:42:30 05/18/20 24 05/22/2024 HEMOG LOBIN A1C copy(ies) sent to: [facility] [id number] [place] [address] [address] [facility] [address] [place] [address] Not Available [address], [address], 05/22/2024 14:42:30 09/16/19 25 09/17/2024 LIPID PANEL , STAND CRISTAL cholesterol, total 95 mg/dL <200 normal Not Available [address], [address], 09/17/2024 04:06:09 09/16/1909/17/2024 LIPID PANEL , STAND CRISTAL HDL cholesterol 27 mg/dL > or = 40 low Not Available [address], [address], 09/17/2024 04:06:09 09/16/19 25 09/17/2024 LIPID PANEL , STAND CRISTAL triglyceride s 130 mg/dL <150 normal Not Available [address], [address], 09/17/2024 04:06:09 09/16/19 25 09/17/2024 LIPID PANEL , STAND CRISTAL LDL-choleste rol 47 mg/dL _(luis enrique c) normal Refer ence range : <100 Salud able range <100 mg/dL for prima ry preve ntion ; <70 mg/dL for patie nts with CHD or diabe tic patie nts with > or = 2 CHD risk facto rs. LDL-C is now calcu lated using the Jessica n-Hop kins nevilleu katie n, which is a valid ated novel jaz mederos than the Fried douglas equat ion in the estim ation of LDL-C . Jessica brock SS et al. MONTSERRAT. 2013; 310(1 9): 2061- 2068 (http ://ed ucati on.Qu estDi iCoolhunts. com/f aq/FA Q164) Not Available [address], [address], 09/17/2024 04:06:09 09/16/19 25 09/17/2024 LIPID PANEL , STAND CRISTAL chol/HDLC ratio 3.5 (calc ) <5.0 normal Not Available [address], [address], 09/17/2024 04:06:09 09/16/19 25 09/17/2024 LIPID PANEL , STAND CRISTAL non HDL cholesterol 68 mg/dL _(luis enrique c) <130 normal For patie nts with diabe elisa plus 1 major ASCVD risk facto r, treat ing to a non-H DL-C goal of <100 mg/dL (LDL- C of <70 mg/dL ) is irwin arrieta optio n. Not Available [address], [address], 09/17/2024 04:06:09 09/16/1909/17/2024 MAGNE SIUM magnesium 2.1 mg/dL 1.5-2. 5 normal Not Available [address], [address], 09/17/2024 04:06:11 09/16/19 25 09/17/2024 PHOSP HATE ( PHOSP HORUS ) phosphate ( phosphorus) 4.0 mg/dL 2.1-4. 3 normal Not Available [address], [address], 09/17/2024 04:06:12 09/16/19 25 09/17/2024 COMPR EHENS MILDRED METAB OLIC PANEL , PLASM A glucose 152 mg/dL 65-99 high Fasti ng refer ence inter andres For someo ne witho ut known diabe elisa, a gluco se value >125 mg/dL indic ates that they may have diabe elisa and this shoul d be confi rmed with a follo w-up test. Not Available [address], [address], 09/17/2024 04:06:13 09/16/1909/17/2024 COMPR EHENS MILDRED METAB OLIC PANEL , PLASM A urea nitrogen (BUN) 43 mg/dL 7-25 high Not Available [address], [address], 09/17/2024 04:06:13 09/16/19 25 09/17/2024 COMPR EHENS MILDRED METAB OLIC PANEL , PLASM A creatinine 1.94 mg/dL 0.70-1 .22 high Not Available [address], [address], 09/17/2024 04:06:13 09/16/19 25 09/17/2024 COMPR EHENS MILDRED METAB OLIC PANEL , PLASM A eGFR 33 mL/mi n/1.7 3m2 > or = 60 low Not Available [address], [address], 09/17/2024 04:06:13 09/16/1909/17/2024 COMPR EHENS MILDRED METAB OLIC PANEL , PLASM A BUN/creatini ne ratio 22 (calc ) 6-22 normal Not Available [address], [address], 09/17/2024 04:06:13 09/16/19 25 09/17/2024 COMPR EHENS MILDRED METAB OLIC PANEL , PLASM A sodium 141 mmol/ L 135-14 6 normal Not Available [address], [address], 09/17/2024 04:06:13 09/16/19 25 09/17/2024 COMPR EHENS MILDRED METAB OLIC PANEL , PLASM A potassium 3.7 mmol/ L 3.4-4. 8 normal Not Available [address], [address], 09/17/2024 04:06:13 09/16/19 25 09/17/2024 COMPR EHENS MILDRED METAB OLIC PANEL , PLASM A chloride 105 mmol/ L 98-110 normal Not Available [address], [address], 09/17/2024 04:06:13 09/16/19 25 09/17/2024 COMPR EHENS MILDRED METAB OLIC PANEL , PLASM A carbon dioxide 27 mmol/ L 20-32 normal Not Available [address], [address], 09/17/2024 04:06:13 09/16/19 25 09/17/2024 COMPR EHENS MILDRED METAB OLIC PANEL , PLASM A calcium 8.9 mg/dL 8.6-10 .3 normal Not Available [address], [address], 09/17/2024 04:06:13 09/16/19 25 09/17/2024 COMPR EHENS MILDERD METAB OLIC PANEL , PLASM A protein, total 6.7 g/dL 6.4-8. 4 normal Not Available [address], [address], 09/17/2024 04:06:13 09/16/19 25 09/17/2024 COMPR EHENS MILDRED METAB OLIC PANEL , PLASM A albumin 4.0 g/dL 3.6-5. 1 normal Not Available [address], [address], 09/17/2024 04:06:13 09/16/19 25 09/17/2024 COMPR EHENS MILDRED METAB OLIC PANEL , PLASM A globulin 2.7 g/dL_ (calc ) 2.2-4. 0 normal Not Available [address], [address], 09/17/2024 04:06:13 09/16/19 25 09/17/2024 COMPR EHENS MILDRED METAB OLIC PANEL , PLASM A albumin/glob ulin ratio 1.5 (calc ) 0.9-2. 3 normal Not Available [address], [address], 09/17/2024 04:06:13 09/16/19 25 09/17/2024 COMPR EHENS MILDRED METAB OLIC PANEL , PLASM A bilirubin, total 0.6 mg/dL 0.2-1. 2 normal Not Available [address], [address], 09/17/2024 04:06:13 09/16/19 25 09/17/2024 COMPR EHENS MILDRED METAB OLIC PANEL , PLASM A alkaline phosphatase 73 U/L 35-144 normal Not Available [address], [address], 09/17/2024 04:06:13 09/16/19 25 09/17/2024 COMPR EHENS MILDRED METAB OLIC PANEL , PLASM A AST 23 U/L 10-35 normal Not Available [address], [address], 09/17/2024 04:06:13 09/16/19 25 09/17/2024 COMPR EHENS MILDRED METAB OLIC PANEL , PLASM A ALT 18 U/L 9-46 normal Not Available [address], [address], 09/17/2024 04:06:13 09/16/19 25 09/17/2024 CBC (INCL UDES DIFF/ PLT) white blood cell count 7.8 thous and/u L 3.8-10 .8 normal Not Available [address], [address], 09/17/2024 04:06:14 09/16/19 25 09/17/2024 CBC (INCL UDES DIFF/ PLT) red blood cell count 3.40 amanda on/uL 4.20-5 .80 low Not Available [facility] [address], [address], 09/17/2024 04:06:14 09/16/1909/17/2024 CBC (INCL UDES DIFF/ PLT) hemoglobin 11.1 g/dL 13.2-1 7.1 low Not Available [facility] [address], [address], 09/17/2024 04:06:14 09/16/1909/17/2024 CBC (INCL UDES DIFF/ PLT) hematocrit 34.2 % 38.5-5 0.0 low Not Available [facility] [address], [address], 09/17/2024 04:06:14 09/16/1909/17/2024 CBC (INCL UDES DIFF/ PLT) MCV 100.6 fL 80.0-1 00.0 high Not Available [facility] [address], [address], 09/17/2024 04:06:14 09/16/1909/17/2024 CBC (INCL UDES DIFF/ PLT) MCH 32.6 pg 27.0-3 3.0 normal Not Available [facility] [address], [address], 09/17/2024 04:06:14 09/16/1909/17/2024 CBC (INCL UDES DIFF/ PLT) MCHC 32.5 g/dL 32.0-3 6.0 normal For adult s, a sligh t decre ase in the calcu lated MCHC value (in the range of 30 to 32 g/dL) is most likel y not clini harriet signi marylu t; jose g er, it shoul d be inter prete d with cauti on in corre latio n with other red cell glen eters and the patie nt's clini luis enrique condi tion. Not Available [address], [address], 09/17/2024 04:06:14 09/16/1909/17/2024 CBC (INCL UDES DIFF/ PLT) RDW 13.4 % 11.0-1 5.0 normal Not Available [address], [address], 09/17/2024 04:06:14 09/16/1909/17/2024 CBC (INCL UDES DIFF/ PLT) platelet count 227 thous and/u L 140-40 0 normal Not Available [address], [address], 09/17/2024 04:06:14 09/16/1909/17/2024 CBC (INCL UDES DIFF/ PLT) MPV 10.7 fL 7.5-12 .5 normal Not Available [address], [address], 09/17/2024 04:06:14 09/16/1909/17/2024 CBC (INCL UDES DIFF/ PLT) absolute neutrophils 6232 cells /uL 1500-7 800 normal Not Available [address], [address], 09/17/2024 04:06:14 09/16/1909/17/2024 CBC (INCL UDES DIFF/ PLT) absolute lymphocytes 343 cells /uL 850-39 00 low Not Available [address], [address], 09/17/2024 04:06:14 09/16/1909/17/2024 CBC (INCL UDES DIFF/ PLT) absolute monocytes 881 cells /uL 200-95 0 normal Not Available [address], [address], 09/17/2024 04:06:14 09/16/19 25 09/17/2024 CBC (INCL UDES DIFF/ PLT) absolute eosinophils 304 cells /uL 15-500 normal Not Available [address], [address], 09/17/2024 04:06:14 09/16/19 25 09/17/2024 CBC (INCL UDES DIFF/ PLT) absolute basophils 39 cells /uL 0-200 normal Not Available [facility] [address], [address], 09/17/2024 04:06:14 09/16/19 25 09/17/2024 CBC (INCL UDES DIFF/ PLT) neutrophils 79.9 % normal Not Available [facility] [address], [address], 09/17/2024 04:06:14 09/16/19 25 09/17/2024 CBC (INCL UDES DIFF/ PLT) lymphocytes 4.4 % normal Not Available [facility] [address], [address], 09/17/2024 04:06:14 09/16/19 25 09/17/2024 CBC (INCL UDES DIFF/ PLT) monocytes 11.3 % normal Not Available [facility] [address], [address], 09/17/2024 04:06:14 09/16/1909/17/2024 CBC (INCL UDES DIFF/ PLT) eosinophils 3.9 % normal Not Available [facility] [address], [address], 09/17/2024 04:06:14 09/16/19 25 09/17/2024 CBC (INCL UDES DIFF/ PLT) basophils 0.5 % normal Not Available [facility] [address], [address], 09/17/2024 04:06:14 01/31/09/17/2024 URINA LYSIS , COMPL ETE W/REF PABLO TO CULTU RE color YELLOW yellow normal Not Available [address], [address], 09/17/2024 04:06:15 09/16/19 25 09/17/2024 URINA LYSIS , COMPL ETE W/REF PABLO TO CULTU RE appearance CLEAR clear normal Not Available [address], [address], 09/17/2024 04:06:15 09/16/19 25 09/17/2024 URINA LYSIS , COMPL ETE W/REF PABLO TO CULTU RE specific gravity 1.015 1.001- 1.035 normal Not Available [address], [address], 09/17/2024 04:06:15 09/16/19 25 09/17/2024 URINA LYSIS , COMPL ETE W/REF PABLO TO CULTU RE pH < OR = 5.0 5.0-8. 0 normal Not Available [address], [address], 09/17/2024 04:06:15 09/16/19 25 09/17/2024 URINA LYSIS , COMPL ETE W/REF PABLO TO CULTU RE glucose 1+ negati ve abnormal Not Available [address], [address], 09/17/2024 04:06:15 09/16/19 25 09/17/2024 URINA LYSIS , COMPL ETE W/REF PABLO TO CULTU RE bilirubin NEGATI VE negati ve normal Not Available [address], [address], 09/17/2024 04:06:15 09/16/19 25 09/17/2024 URINA LYSIS , COMPL ETE W/REF PABLO TO CULTU RE ketones NEGATI VE negati ve normal Not Available [address], [place], [address], 09/17/2024 04:06:15 09/16/19 25 09/17/2024 URINA LYSIS , COMPL ETE W/REF PABLO TO CULTU RE occult blood NEGATI VE negati ve normal Not Available [facility] [address] [place], [address], 09/17/2024 04:06:15 09/16/19 25 09/17/2024 URINA LYSIS , COMPL ETE W/REF PABLO TO CULTU RE protein NEGATI VE negati ve normal Not Available [facility] [address], [address], 09/17/2024 04:06:15 09/16/19 25 09/17/2024 URINA LYSIS , COMPL ETE W/REF PABLO TO CULTU RE nitrite NEGATI VE negati ve normal Not Available [facility] [address], [place], [address], 09/17/2024 04:06:15 09/16/19 25 09/17/2024 URINA LYSIS , COMPL ETE W/REF PABLO TO CULTU RE leukocyte esterase NEGATI VE negati ve normal Not Available [address], [address], 09/17/2024 04:06:15 09/16/19 25 09/17/2024 URINA LYSIS , COMPL ETE W/REF PABLO TO CULTU RE WBC NONE SEEN /hpf < or = 5 normal Not Available [facility] [address] [address] [place], [address], 09/17/2024 04:06:15 09/16/19 25 09/17/2024 URINA LYSIS , COMPL ETE W/REF PABLO TO CULTU RE RBC NONE SEEN /hpf < or = 2 normal Not Available [facility] [address] [place], [address], 09/17/2024 04:06:15 09/16/19 25 09/17/2024 URINA LYSIS , COMPL ETE W/REF PABLO TO CULTU RE squamous epithelial cells NONE SEEN /hpf < or = 5 normal Not Available [address], [address], 09/17/2024 04:06:15 09/16/19 25 09/17/2024 URINA LYSIS , COMPL ETE W/REF PABLO TO CULTU RE bacteria NONE SEEN /hpf none seen normal Not Available [facility] - [address], [address], 09/17/2024 04:06:15 09/16/19 25 09/17/2024 URINA LYSIS , COMPL ETE W/REF PABLO TO CULTU RE hyaline cast 0-5 /lpf none seen abnormal Not Available [address], [address], 09/17/2024 04:06:15 09/16/19 25 09/17/2024 URINA LYSIS , COMPL ETE W/REF PABLO TO CULTU RE note This urine was sylvie zed for the prese nce of WBC, RBC, bacte lela, casts , and other forme d eleme nts. Only those eleme nts seen were repor wade. Not Available [address], [address], 09/17/2024 04:06:15 09/16/1909/17/2024 REFLE XIVE URINE CULTU RE reflexive urine culture NO CULTU RE INDIC ATED Not Available [facility] [address], [address], 09/17/2024 04:06:17 09/16/19 25 09/17/2024 PTH, INTAC T WITHO UT CALCI UM parathyroid hormone, intact 128 pg/mL 16-77 high Inter preti ve Guide Intac t PTH Calci um ----- ----- ----- --- ----- ----- ----- -- Nahomy l Parat hyroi d Nahomy l Nahomy l Hypop jairo yroid ism Low or Low Nahomy l Low Hyper parat hyroi dism Prima ry Nahomy l or High High Secon agustin High Nahomy l or Low Terti clara High High Non-P jairo yroid Hyper calce tierra Low or Low Nahomy l High Not Available [facility] [address] [address] [place], [address], 09/17/2024 04:06:17 09/16/1909/17/2024 T4, FREE T4, free 1.2 NG/dL 0.8-1. 8 normal Not Available [facility] [address], [address], 09/17/2024 04:06:18 09/16/19 25 09/17/2024 TSH TSH 1.84 mIU/L 0.40-4 .50 normal Not Available [facility] [address] [address] [place], [address], 09/17/2024 04:06:19 09/16/1909/21/2024 VITAM IN D,25- OH,TO JANE,I A vitamin D,25-oh,tota l,ia 50 NG/mL 30-100 normal Vitam in D Statu s 25-OH Vitam in D: Defic iency : <20 ng/mL Insuf ficie ncy: 20 - 29 ng/mL Optim al: > or = 30 ng/mL For 25-OH Vitam in D testi ng on patie nts on D2-watkins pplem entat ion and patie nts for whom quant itati on of D2 and D3 fract ions is requi red, the [facility](TM ) 25-OH VIT D, (D2,D 3), LC/MS /MS is recom jose c d: order code 06855 (vasyl ents >2yrs ). See Note 1 Note 1 For addit ional infor yanique irwin refer to http: //michael Hartia gn[employer].c om/fa q/FAQ 199 (This link is being provi ded for infor shannan nal/ educa cyndi l purpo ses only. ) Not Available [facility] [address] [place], [address], 09/22/2024 00:13:36 09/16/19 25 09/21/2024 HEMOG LOBIN A1C hemoglobin A1C 6.8 %_of_ total _HGB <5.7 high For someo ne witho ut known diabe elisa, a hemog lobin A1c value of 6.5% or great er indic ates that they may have diabe leisa and this shoul d be confi rmed with a follo w-up test. For someo ne with known diabe elisa, a value <7% indic ates that their diabe elisa is well contr olled and a value great er than or equal to 7% indic ates subop timal contr ol. A1c targe ts shoul d be indiv idual ized based on durat ion of diabe elisa, age, comor bid condi tions , and other consi derat ions. Curre ntly, no conse nsus exist s regar ding use of hemog lobin A1c for diagn osis of diabe elisa for child ayanna. Your reque st to have a [employer] copy faxed has been [facility] ed. Queue d to: [phone] Queue d to: [phone] A [employer] repor t has been faxed to the [facility] wing: Faxed to: [phone] 2 on: 09/19 09:15 Not Available [facility] [address] [address], [place], [address], 09/22/2024 00:13:38 10/21/19 24 10/21/2023 pharm acolo gic nucle ar stres s test No observ ation record ed. [email or web address] [facility] [address], [place], [address], 10/21/2023 12:26:38 10/21/19 24 10/20/2023 cardi ac monit or No observ ation record ed. [email or web address] [facility] [address], [place], [address], 10/21/2023 11:37:56 10/21/19 24 10/21/2023 pharm acolo gic nucle ar stres s test No observ ation record ed. [address] [facility] [address], [place], [address], 10/21/2023 12:26:59 03/14/20 24 03/14/2024 MRI, lumba r spine , w/o contr ast No observ ation record ed. [place], [place], [address], 03/14/2024 10:19:51 03/31/20 24 03/31/2024 US, echoc ardio gram No observ ation record ed. [address] [facility] [address], [place], [address], 04/01/2024 10:02:13 04/05/20 24 04/05/2024 US, doppl er, arter ial No observ ation record ed. [address] [facility] [address], [place], [address], 04/05/2024 15:12:29 04/05/20 24 04/05/2024 US, doppl er, arter ial No observ ation record ed. [email or web address] [facility] [address], [place], [address], 04/06/2024 15:25:16 04/25/20 24 03/11/2024 MRI, cervi luis enrique spine , w/o contr ast No observ ation record ed. [email or web address] Not Available 2023 15:09:40 05/18/20 24 05/05/2024 lab* No observ ation [place] ed. [email or web address] [id number] Not Available 2023 17:00:24 Result Notes None recorded. 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 Not Available [facility] 3 17:10:39 Radiotherapy follow-up 919617588 Active Not Available [facility] 3 17:10:39 Knee joint effusion 941191610 Active Not Available [facility] 3 17:10:39 Glaucoma 14322295 Active Not Available [facility] 3 17:10:39 Osteoarthriti s of hip 595945473 Active Not Available [facility] 3 17:10:39 Osteoarthriti s of knee 745131599 Active Not Available [facility] 3 17:10:39 Pure hypercholeste rolemia 007601011 Active Not Available [facility] 3 17:10:39 Low back pain 391734697 Active Not Available [facility] 3 17:10:39 Osteoarthriti s 882529465 Active Not Available [facility] 3 17:10:39 Diastolic heart failure 087273521 Active 2018 Not Available [facility] 3 17:10:39 Chronic kidney disease stage 3 593088032 Active Not Available [facility] 3 17:10:39 Type 2 diabetes mellitus 35320721 Active Not Available [facility] 3 17:10:39 Atrial fibrillation 00764725 Active 2020 Not Available [facility] 3 17:10:39 Essential hypertension 59181646 Active 2021 Not Available [facility] 3 17:10:39 Derangement of knee 58185166 Active Not Available [facility] 3 17:10:39 Polyp of colon 09404424 Active 2019 Not Available [facility] 3 17:10:39 Degeneration of intervertebra l disc 94327071 Active Not Available [facility] 3 17:10:39 COVID-19 021548870 Active 2021 Not Available [facility] 3 17:10:39 Iron deficiency anemia 05180527 Active Not Available [facility] 3 17:10:39 Gout 94678421 Active Not Available [facility] 3 17:10:39 Prostatitis 2951492 Active Not Available [facility] 3 17:10:39 Type 2 diabetes mellitus without complication 707128580 Active 2022 Not Available [facility] 3 17:10:39 Diarrhea 57257888 Active 2022 Not Available [facility] 3 17:10:39 Anemia 059444472 Active 2022 Not Available [facility] 3 17:10:39 Spinal stenosis of lumbar region 70861519 Active 2023 Rhonda Ramirez MD [address] [place] [address], [id number] , [facility] 4 17:12:31 Intermittent claudication 90109805 Active 2023 Lashaun cabezas, [facility] 4 17:19:26 Lumbar radiculopathy 170614686 Active 2023 Lashaun Morris null, [facility] [employer] [facility] 4 17:21:08 Lumbar spondylosis 098856321 Active 2023 Sue Emery CMA null, [facility] 4 16:40:24 Problem Notes None recorded. Procedures Surgical History Date Name Laterality Status Provider Name and Address Organization Details Recorded Time 4 Medicare Wellness CPT Code, subsequent completed Cara Altamirano RN [facility] [employer] [facility] 05/12/2024 11:16:17 3 Medicare Wellness CPT Code, subsequent completed Cara Altamirano RN [facility] [employer] [facility] 05/01/2023 11:47:36 Imaging Results Imaging Date Name Status LastModified by Organization Details LastModified Time 10/21/2023 pharmacologic nuclear stress test completed [email or web address] [place] [address] [facility] [address], [place], [address], 10/21/2023 12:26:38 10/20/2023 radiographer cardiac catheterization completed [email or web address] [facility] [address], [place], [address], 10/21/2023 11:37:56 10/21/2023 pharmacologic nuclear stress test completed [email or web address] [place] [address] [facility] [address], [place], [address], 10/21/2023 12:26:59 03/14/2024 MRI, lumbar spine, w/o contrast completed [address], [place], [address], 03/14/2024 10:19:51 03/31/2024 US, echocardiogram completed [address] [facility] [address], [place], [address], 04/01/2024 10:02:13 04/05/2024 US, doppler, arterial completed [address] [facility] [address], [place], [address], 04/05/2024 15:12:29 04/05/2024 US, doppler, arterial completed [email or web address] [facility] [address], [place], [address], 04/06/2024 15:25:16 03/11/2024 MRI, cervical spine, w/o contrast completed [email or web address] Information not available 05/03/2024 15:09:40 05/05/2024 lab* completed [email or web address] [id number] Information no t available 05/18/2024 17:00:24 Procedure Notes None recorded. Medical Equipment None Reported. Allergies Allergen ID Allergen Name Allergen Category Reaction Reaction Severity Criticality Documentation Date Start Date Code Code System Note Provider Name and Address Organization Details Recorded Time 86217 Bydureon medicatio n diarrhea Not available Not available 10/15/2022 52922 64 RxNorm Not Available [facility] 3 13:55:00 Medications Name Sig Start Date Stop Date Status Note LastModified by Organization Details LastModified Time amoxicillin 500 mg capsule 04/25 completed Not Available Not Available Not Available furosemide 40 mg tablet TAKE 1 TABLET DAILY active Not Available Not Available No t Available Miralax 17 gram/dose oral powder Take 17 g every day by oral route. 03/05 completed Not Available Not Available Not Available atorvastati n 40 mg tablet TAKE 1 TABLET DAILY FOR CHOLESTER OL active Not Available Not Available No t Available sennosides 8.6 mg tablet Take 2 tablets every day by oral route. 04/25 completed Not Available Not Available Not Available naproxen 375 mg tablet active Not Available Not Available Not Available blood-gluco se meter true metrix meter to test blood sugars daily 12/29 completed Not Available Not Available Not Available glyburide 5 mg tablet TAKE 1 TABLET TWICE A DAY active Not Available Not Available No t Available cimetidine 400 mg tablet Take 1 tablet twice a day by oral route. 2012 active Not Available Not Available Not Avai lable hydrocodone 5 mg-acetamin ophen 325 mg tablet active Not Available Not Available No t Available meloxicam 15 mg tablet active Not Available Not Available Not Available Remeron 15 mg tablet Take 1 tablet every day by oral route at bedtime. 03/05 completed Not Available Not Available Not Available lisinopril 20 mg tablet Take 1 tablet every day by oral route. 06/25 completed Not Available Not Available Not Available fluorouraci l 5 % topical cream PAIGE EXT TO FACE BID FOR 2 WKS 12/29 completed Not Available Not Available Not Available travoprost 0.004 % eye drops active Not Available Not Available Not Available Ultram 50 mg tablet Take 1 tablet every 6 hours by oral route. 06/09 completed Not Available Not Available Not Available allopurinol 100 mg tablet Take 1 tablet every day by oral route. active Not Available Not Available No t Available ciprofloxac in 500 mg tablet Take 1 tablet(s) twice a day by oral route for 10 days. active Not Available Not Available No t Available aspirin 81 mg tablet,reynaldo yed release Take 1 tablet every day by oral route. 06/09 completed Not Available Not Available Not Available amoxicillin 500 mg tablet TAKE 4 TABLETS BY MOUTH 1 HOUR BEFORE DENTAL PROCEDURE 05/12 completed Not Available Not Available Not Available meloxicam 7.5 mg tablet Take 1 tablet every day by oral route. active Not Available Not Available No t Available tamsulosin 0.4 mg capsule TAKE 1 CAPSULE AT BEDTIME FOR PROSTATE active Not Available Not Available No t Available cephalexin 500 mg capsule Take 1 capsule 4 times a day by oral route. active Not Available Not Available No t Available ferrous sulfate 325 mg (65 mg iron) tablet TAKE 1 TABLET BY MOUTH EVERY DAY active Not Available Not Available No t Available metformin 1,000 mg tablet TAKE 1 TABLET TWICE A DAY FOR DIABETES 03/05 completed Not Available Not Available Not Available clotrimazol e-betametha sone 1 %-0.05 % topical cream active Not Available Not Available Not Available lisinopril 10 mg tablet TAKE 1 TABLET BY MOUTH EVERY DAY 09/15 completed Not Available Not Available Not Available niacin 500 mg tablet Take 1 tablet every day by oral route at bedtime. 2012 active Not Available Not Available Not Avai lable gentamicin 0.1 % topical cream active Not Available Not Available Not Available lisinopril 5 mg tablet Take 1 tablet every day by oral route. 09/15 completed Not Available Not Available Not Available hydrochloro thiazide 25 mg tablet active Not Available Not Available No t Available Xalatan 0.005 % eye drops Instill 1 drop every day by ophthalmi c route. 2012 active Not Available Not Available Not Avai lable furosemide 20 mg tablet TAKE 1 TABLET TWICE A DAY OR DIRECTED 06/25 completed Not Available Not Available Not Available Vitamin D2 1,250 mcg (50,000 unit) capsule Take 1 capsule every week by oral route. 03/05 completed Not Available Not Available Not Available timolol maleate 0.5 % eye drops one drop each eye daily 11/03 completed Not Available Not Available Not Available pioglitazon e 30 mg tablet TAKE 1 TABLET DAILY FOR DIABETES 08/03 completed Not Available Not Available Not Available timolol maleate 0.5 % eye gel forming solution active Not Available Not Available Not Available lisinopril 40 mg tablet TAKE 1 TABLET DAILY 03/05 completed Not Available Not Available Not Available lisinopril 2.5 mg tablet Take 1 tablet every day by oral route. active Not Available Not Available No t Available dorzolamide 2 % eye drops INSTILL 1 DROP INTO BOTH EYES TWICE A DAY active Not Available Not Available No t Available Blood Glucose Monitoring kit Use to test blood sugar once daily DX E11.9 12/29 completed Not Available Not Available Not Available Multivitami n 50 Plus tablet Take 1 tablet every day by oral route. active Not Available Not Available No t Available Zylet 0.3 %-0.5 % eye drops,suspe nsion active Not Available Not Available Not Available PreserVisio n AREDS 4,296 mcg-226 mg-90 mg capsule Take 1 capsule every day by oral route. 12/29 completed Not Available Not Available Not Available lancets accucheck fast clix lancets 06/14 completed Not Available Not Available Not Available blood-gluco se meter true metrix meter to test blood sugars daily 12/29 completed Not Available Not Available Not Available Vitamin D3 twice a day 2013 active Not Available Not Available Not Avai lable Ocuvite daily 2012 active Not Available Not Available Not Avai lable [place] 3 twice a day 2012 active Not Available Not Available Not Avai lable peg 3350 240 gram-electr olytes 22.72 gram-6.72 g-5.84 g powdr for soln active Not Available Not Available Not Available brimonidine 0.2 %-timolol 0.5 % eye drops PLACE 1 DROP INTO BOTH EYES TWICE DAILY active Not Available Not Available No t Available Xarelto 15 mg tablet TAKE 1 TABLET BY MOUTH DAILY WITH EVENING MEAL active Not Available Not Available No t Available Accu-Chek FastClix Lancing Device TEST TWICE DAILY 12/29 completed Not Available Not Available Not Available icosapent ethyl 1 gram capsule Take 2 capsules twice a day by oral route. active Not Available Not Available No t Available Farxiga 10 mg tablet TAKE 1 TABLET BY MOUTH DAILY. [facility] active Not Available Not Available No t Available Bydureon 2 mg/0.65 mL subcutaneou s pen injector Inject once weekly 07/29 completed Not Available Not Available Not Available True Metrix Glucose Test Strip USE TO TEST BLOOD SUGAR ONCE DAILY active Not Available Not Available No t Available True Metrix Glucose Test Strip test once daily 12/29 completed Not Available Not Available Not Available Trulicity 1.5 mg/0.5 mL subcutaneou s pen injector INJECT 0.5 ML UNDER THE SKIN EVERY WEEK 2024 active Not Available Not Available Not Avai lable Trulicity 0.75 mg/0.5 mL subcutaneou s pen injector Inject 0.5 mL every week by subcutane ous route. 01/01 completed Not Available Not Available Not Available Accu-Chek Fastclix Lancet Drum USE TO TEST BLOOD SUGAR ONCE DAILY active Not Available Not Available No t Available Flowflex COVID-19 Antigen Home Test kit 10/24 completed Not Available Not Available Not Available Paxlovid 150 mg-100 mg tablets in a dose pack (Renal Dose) 10/24 completed Not Available Not Available Not Available Vitals Date Recorded Body height Body mass index (BMI) Body weight Heart rate Body temperature Oxygen saturation Oxygen saturation in Arterial blood by Pulse oximetry Systolic blood pressure Diastolic blood pressure Provider Name and Address Organization Details Last Updated DateTime 4 180.34 cm 23.2 kg/m2 30343.3 3 g 67 /min 97 [degF] 94 % 94 % 122 mm[Hg] 64 mm[Hg] [employer] 4 10:59:16 Date Recorded Body height Body mass index (BMI) Body weight Heart rate Body temperature Oxygen saturation Oxygen saturation in Arterial blood by Pulse oximetry Systolic blood pressure Diastolic blood pressure Provider Name and Address Organization Details Last Updated DateTime 4 180.34 cm 23.7 kg/m2 77722.7 g 76 /min 97 [degF] 98 % 98 % 120 mm[Hg] 82 mm[Hg] [employer] 4 10:44:53 Date Recorded Body height Body mass index (BMI) Body weight Heart rate Body temperature Oxygen saturation Oxygen saturation in Arterial blood by Pulse oximetry Systolic blood pressure Diastolic blood pressure Provider Name and Address Organization Details Last Updated DateTime 4 180.34 cm 23 kg/m2 12219.7 4 g 68 /min 97.7 [degF] 98 % 98 % 118 mm[Hg] 74 mm[Hg] WENDY Foster [facility] 4 16:42:03 Date Recorded Body height Body mass index (BMI) Body weight Heart rate Body temperature Oxygen saturation Oxygen saturation in Arterial blood by Pulse oximetry Systolic blood pressure Diastolic blood pressure Provider Name and Address Organization Details Last Updated DateTime 4 180.34 cm 22.9 kg/m2 03985.1 5 g 64 /min 97 [degF] 98 % 98 % 122 mm[Hg] 68 mm[Hg] [facility] [employer] [facility] 4 11:11:41 Date Recorded Pain severity - 0-10 verbal numeric rating [Score] - Reported Provider Name and Address Organization Details Last Updated DateTime 05/12/2024 3 Cara Altamirano RN [facility] [employer] [facility] 05/12/2024 11:16:33 Date Recorded Body height Body mass index (BMI) Body weight Heart rate Body temperature Oxygen saturation Oxygen saturation in Arterial blood by Pulse oximetry Systolic blood pressure Diastolic blood pressure Provider Name and Address Organization Details Last Updated DateTime 5 180.34 cm 22.9 kg/m2 52481.9 4 g 92 /min 97 [degF] 98 % 98 % 118 mm[Hg] 58 mm[Hg] [facility] 5 11:33:13 Social History Question Answer Notes LastModified by Organization Details LastModified Time Tobacco Smoking Status Never Smoker Not Available [facility] 10/15/2022 13:52:28 Do You Have An Advance Directive? Yes [id number] Information not available 10/15/2022 What Is Your Level Of Alcohol Consumption? None [id number] Information not available 10/15/2022 Are You Blind Or Do You Have Difficulty Seeing? No [id number] Information not available 10/15/2022 In The 14 Days Before Symptom Onset, Have You Had Close Contact With A Laboratory-confi rmed COVID-19 While That Case Was Ill? No MIGRATION.[id number] [id number] Information not available 10/15/2022 In The 14 Days Before Symptom Onset, Have You Had Close Contact With A Person Who Is Under Investigation For COVID-19 While That Person Was Ill? No MIGRATION.[id number] [id number] Information not available 10/15/2022 Are You Deaf Or Do You Have Serious Difficulty Hearing? Yes Has Hearing Aids [email or web address] Information not available 05/12/2024 What Type Of Diet Are You Following? REGULAR MIGRATION.0301 [id number] Information not available 10/15/2022 Do You Or Have You Ever Used E-cigarettes Or Vape? Never Used Electronic Cigarettes MIGRATION.0301 [id number] Information not available 10/15/2022 Have There Been Any Changes To Your Family Or Social Situation? No MIGRATION.0301 [id number] Information not available 10/15/2022 What Is The Fluoride Status Of Your Home? Unknown MIGRATION.0301 [id number] Information not available 10/15/2022 Are There Any Guns Present In Your Home? Yes MIGRATION.0301 [id number] Information not available 10/15/2022 Do You Use Insect Repellent Routinely? No MIGRATION.0301 [id number] Information not available 10/15/2022 [facility] [id number] Information not available 10/15/2022 Guns Present In The Home? Yes [email or web address] Information not available 05/01/2023 Are You Able To Care For Yourself? Yes [email or web address] Information not available 05/01/2023 Are You Blind Or Do Yo Have Difficulty Seeing? No [email or web address] Information not available 05/01/2023 Are You Deaf Or Do You Have Serious Difficulty Hearing? Yes [email or web address] Information not available 05/12/2024 Live Alone Of With Others? With Others Information not available 05/01/2023 Do You Have A Medical Power Of Stereotype Caster? Yes [email or web address] Information not available 05/01/2023 What Was The Date Of Your Most Recent Tobacco Screening? 05/12/2024 [email or web address] Information not available 05/12/2024 Do You Have Any Pets? No MIGRATION.0301 [id number] Information not available 10/15/2022 What Is Your Relationship Status? MIGRATION.0301 [id number] Information not available 10/15/2022 Do You Use Your Seat Belt Or Car Seat Routinely? Yes MIGRATION.0301 [id number] Information not available 10/15/2022 Do You Have Smoke And Carbon Monoxide Detectors In Your Home? Yes MIGRATION.0301 129103 Information not available 10/15/2022 Are You Passively Exposed To Smoke? No MIGRATION.0301 [id number] Information not available 10/15/2022 Are There Any Smokers In Your House? No MIGRATION.0301 133497 Information not available 10/15/2022 Do You Use Sunscreen Routinely? Yes MIGRATION.0301 [id number] Information not available 10/15/2022 Have You Recently Traveled Abroad? No MIGRATION.0301 [id number] Information not available 10/15/2022 Do You Have Any Dietary Restrictions? No MIGRATION.0301 [id number] Information not available 10/15/2022 Sex: Unknown Functional Status Question Answer Note LastModified by Organizat ion Details LastModified Time Do you have difficulty walking or climbing stairs? No MIGRATION.[id number] Information not available 10/15/2022 Do you have transportation difficulties? No MIGRATION.[id number] 026 Information not available 10/15/2022 Are you able to walk? YESWOREST MIGRATION.[id number] 026 Information not available 10/15/2022 Do you have difficulty doing errands alone? No MIGRATION.[id number] [id number] Information not available 10/15/2022 Are you able to care for yourself? Yes MIGRATION.[id number] 026 Information not available 10/15/2022 Do you have difficulty dressing or bathing? No MIGRATION.[id number] 026 Information not available 10/15/2022 What is your exercise level? Occasional [email or web address] Information not available 05/12/2024 Mental Status Question Answer Note LastModified by Organizat ion Details LastModified Time Do you have difficulty concentrating, remembering or making decisions? No MIGRATION.[id number] 6 Information not available 10/15/2022 Family History Nothing Reported Notes:Mother 77 yea rs old Father 79 years old 3 Brothers 1 Living 2 Sisters 0 Living Mother Hx DM, HTN Father Hx MVA Brother Hx DM (4) , HTN (2) , Ca of Brain (1) CVA(1) Dementia(1) Sisters Hx CVA(1), Dementia(1), COVID Medical History Condition Response NERVE DISEASE N BLINDNESS N RHEUMATIC FEVER N KIDNEY STONES N BLADDER PROBLEMS N MRSA N CARPAL TUNNEL SYNDROME N OTHER # 1 N POLIO N LUNG DISEASE/DISORDER N HISTORY OF DRUG ABUSE N RADIATION / CHEMOTHERAPY N COPD N Other # 2 N BLOOD DISEASES N SURGERY N EAR OR HEARING PROBLEMS N MUMPS N SCHIZOPHRENIA N BOWEL PROBLEMS N DEPRESSION (INCLUDING POST ) N STROKE/TIA N ULCERS N BENIGN PROSTATIC HYPERPLASIA N MEASLES N MYOCARDIAL INFARCTION N OBESITY N GERD/NAUSEA N ANEURYSM N URINARY/BLADDER/KIDNEY PROBLEMS N INPATIENT PSYCH CARE N CORONARY ARTERY DISEASE (CAD) N ADDICTION CONCERNS N ENDOMETRIOSIS N Impotence N USE OF BLOOD THINNERS N SKIN PROBLEMS N EMPHYSEMA N GASTROINTESTINAL DISORDER N PERIPHERAL VASCULAR DISEASE N MUSCLE,JOINT OR BONE PROBLEMS N DVT N STOMACH ULCERS N GASTROINTESTINAL BLEEDING N BLOOD CLOTS N ASTHMA N CATARACTS N USE OF NSAIDS N CONCUSSION OR SPINAL TRAUMA N ERECTILE DYSFUNCTION N VARICOSITIES N GI PROBLEMS N Low Testosterone N NEUROPATHY N INFERTILITY N AIDS/HIV N FRACTURES N CHEMOTHERAPY / RADIATION N LIVER DISEASE N MALE HYPOGONADISM N HYPERTENSION Y Deficiency N TOURETTE'S N ANXIETY DISORDER N Metal allergy N BLOOD TRANSFUSION N ANEMIA/BLOOD DISORDER N CHRONIC EAR INFECTIONS N BIPOLAR DISORDER N BRONCHITIS N OSTEOARTHRITIS N TUBERCULOSIS N GLAUCOMA N FOOT PROBLEM N HEART VALVE DISORDERS N DIVERTICULITIS N CHICKENPOX N SLEEP APNEA N ALLERGIES/HAYFEVER N INFECTIOUS DISEASE N HEART ARRHYTHMIA N PROSTATE N INSOMNIA N HIGH CHOLESTEROL / HYPERLIPIDEMIA Y RHEUMATOID ARTHRITIS N EYE PROBLEMS N HYPERTHYROIDISM N NEUROLOGICAL PROBLEMS N EDEMA N CHRONIC PAIN SYNDROME N HYPOTHYROIDISM N CAROTID BLOCKAGE N CONSTIPATION N BACK / NECK PROBLEMS N HAVE YOU BEEN HOSPITALIZED OR SEEN IN [facility] IN THE PAST YEAR ? N ATHEROSCLEROSIS N BURSITIS N BREAST PROBLEMS N HERNIATED DISC N DIALYSIS N ECZEMA N FIBROMYALGIA N OSTEOPOROSIS N ARTHRITIS Y NO SIGNIFICANT PAST MEDICAL HISTORY N PERIPHERAL NEUROPATHY N APPENDICITIS N DIABETES, TYPE N BAD TEETH N ENT N HEARTBURN / REFLUX N AUTISM SPECTRUM DISORDER (ASD) N HEPATITIS / LIVER DISEASE N PULMONARY DISEASE N GOUT Y SLEEP DISORDER N ALZHEIMER'S DISEASE N Brain Problems N HERPES N DEMENTIA N HEADACHES/MIGRAINES N SEIZURES/EPILEPSY N VASCULAR DISEASE N PACEMAKER N Blood Disorder N DIZZINESS N HEAD TRAUMA OR INJURY N HEART DISEASE/HEART PROBLEMS N KIDNEY DISEASE Y MULTIPLE SCLEROSIS N CARDIAC ARRHYTHMIA N CANCER: SPECIFY N ANESTHESIA COMPLICATIONS N ATRIAL FIBRILLATION N Gall Stones N PULMONARY EMBOLISM N AUTOIMMUNE DISEASE N Immunizations Vaccine Type Date Status Note Provider Nam e and Address Organization Details Recorded Time Pneumococcal conjugate PCV20, polysaccharide WAM359 conjugate, adjuvant, PF 5 completed Sary cabezas [employer] 09/22/2024 15:13:55 SARS-COV-2 (COVID-19) vaccine, UNSPECIFIED 2 completed Not Available [facility] 05/07/2023 03:14:03 influenza nasal, unspecified formulation 2 completed Not Available [facility] 05/07/2023 03:14:03 SARS-COV-2 (COVID-19) vaccine, UNSPECIFIED 4 completed Saryroque Smalls [employer] [facility] [employer] 05/12/2024 11:12:43 SARS-COV-2 (COVID-19) vaccine, UNSPECIFIED 1 completed Not Available [facility] 05/07/2023 03:14:03 SARS-COV-2 (COVID-19) vaccine, UNSPECIFIED 1 completed Not Available [facility] 05/07/2023 03:14:03 zoster, unspecified formulation 9 completed Not Available [facility] 05/07/2023 03:14:03 SARS-COV-2 (COVID-19) vaccine, UNSPECIFIED 1 completed Not Available [facility] 05/07/2023 03:14:03 Influenza, split virus, quadrivalent, preservative 1 completed Not Available [facility] 05/07/2023 03:14:03 Pneumococcal conjugate PCV 13 5 completed Not Available [facility] 05/07/2023 03:14:03 Tdap 5 completed Not Available [facility] 05/07/2023 03:14:03 Past Encounters Encounter ID Performer Location Encounter Start Date Encounter Closed Date Diagnosis/Indication Diagnosis SNOMED-CT Code Diagnosis ICD10 Code Diagnosis Note [id number] [facility] Internal Med Rhina spears [address] [place] [address] 10/30/2020 00:00:00 10/30/2020 11:05:43 [id number] [facility] Internal Med [place] [address] [facility] [address] , [place] [address] 02/26/2021 00:00:00 02/26/2021 12:27:53 [id number] [facility] Internal Med [place] [address] [facility] [address] , [place] [address] 06/25/2021 00:00:00 06/25/2021 12:00:30 [id number] [facility] Internal [place] [address] [place] [address] y , [place] [address] 10/22/2021 00:00:00 10/22/2021 11:50:45 [id number] [facility] Internal [place] [address] [place] [address] y , [place] [address] 04/25/2022 00:00:00 04/25/2022 15:23:35 [id number] Rhonda Ramirez MD [facility] Internal Med [place] [address] [place] [address] y , [place] [address] 10/24/2022 11:05:44 10/24/2022 12:04:32 Atrial fibrillation 87831202 I48.91 Chronic ki dney disease stage 3 090438677 N18.30 Essential hypertension 34974203 I10 Gout 69722254 M10.9 Pure hypercholesterolemia 820732630 E78.00 Type 2 brea betes mellitus 20067248 E11.9 [id number] Rhonda Ramirez MD [facility] Internal Med [place] [address] [place] [address] y , [place] [address] 05/01/2023 11:29:03 05/01/2023 12:22:49 Adult health examination 638870375 Z00.00 Screening for disorder 296526318 Z13.9 Chronic ki dney disease stage 3 343564921 N18.30 Essential hypertension 29756188 I10 Pure hypercholesterolemia 812439268 E78.00 Type 2 brea betes mellitus 80694156 E11.9 Atrial fibrillation 4943 6004 I48.91 [id number] Rhonda Ramirez MD [facility] Internal Med [place] [address] [facility] [place] [address] 09/29/2023 10:49:09 09/29/2023 11:27:19 Essential hypertension 84350031 I10 Atrial fibrillation 4943 6004 I48.91 Chronic ki dney disease stage 3 078192767 N18.30 Pure hypercholesterolemia 507126925 E78.00 Type 2 brea betes mellitus without complication 401974318 E11.9 [id number] Rhonda Ramirez MD [facility] Internal Med [place] [address] [facility] [place] [address] 11/06/2023 10:42:37 11/06/2023 11:07:03 Essential hypertension 05295163 I10 Chronic ki dney disease stage 3 778134073 N18.30 Atrial fibrillation 4943 6004 I48.91 Type 2 brea betes mellitus 57645058 E11.9 [id number] Rhonda Ramirez MD [facility] Internal Med [facility] [address] [facility] [address] [place] [address] 03/09/2024 16:34:57 03/09/2024 17:16:16 Spinal stenosis of lumbar region 07237736 M48.061 Essential hypertension 14713816 I10 Atrial fibrillation 4943 6004 I48.91 Pure hypercholesterolemia 427226544 E78.00 Type 2 brea betes mellitus without complication 300137875 E11.9 [id number] Rhonda Ramirez MD [facility] Internal Med [place] [address] [facility] [place] [address] 05/12/2024 10:50:31 05/12/2024 11:50:58 Adult health examination 555942565 Z00.00 Screening for disorder 496963795 Z13.9 Essential hypertension 49496394 I10 Atrial fibrillation 4943 6004 I48.91 Pure hypercholesterolemia 189873405 E78.00 Type 2 brea betes mellitus without complication 428761272 E11.9 Chronic ki dney disease stage 3 747341287 N18.30 [id number] Rhonda Ramirez MD [facility] [address] [facility] [address] [place] [address] 09/15/2024 11:06:47 09/15/2024 12:06:38 Essential hypertension 79144138 I10 Atrial fibrillation 4943 6004 I48.91 Chronic ki dney disease stage 3 609387781 N18.30 Pure hypercholesterolemia 246774718 E78.00 Type 2 brea betes mellitus without complication 148387992 E11.9 Health Concerns Section Related Observation LastModified by Organization Detai ls LastModified Time None Recorded Concern Status LastModified by Organization Details LastModified Time None Recorded Advance Directives Directive Y: Payers Encounter Date Sequence Insurance Name Policy Number Policy Bermeo Covered Member ID Bermeo Member ID Guarantor Name 09/29/2023 1 [place] Brandon Wagoner [id number] Brandon Wagoner 09/29/2023 2 [place] [id number] Brandon Wagoner [id number] Brandon Wagoner 11/06/2023 1 [place] Wagon[place] [id number] Brandon Alex Wagoner 11/06/2023 2 [place] [id number] Brandon Wagoner [id number] Brandon Wagoner 03/09/2024 1 [place] Wagon[place] [id number] Brandon Alex Wagoner 03/09/2024 2 [place] [id number] Brandon Wagoner [id number] Brandon Wagoner 05/12/2024 1 [place] Wagon[place] [id number] Brandon Alex Wagoner 05/12/2024 2 [place] [id number] Brandon Wagoner [id number] Brandon Wagoner 09/15/2024 1 [place] Brandon Waogner [id number] Brandon Alex Wagoner 09/15/2024 2 [place] [id number] Brandon Wagoner [id number] Brandon Wagoner Notes Date Note Type Note Provider Name and Address Organization Details Recorded Time 09/29/2023 text/html Patient Name: David WagonerDate Of Service: Thursday ( 09.29.2023 ): 1935 Age: 88 There has been approximately a 1 lb weight gain since 05/01/2023. This represents approximately a .6% change in weight. Weight change attributable to lifestyle changes. Vital Signs:Blood Pressure: Sitting Rt. Arm 122/64Pulse: Sitting 67 /min and RegularRespiratory Rate: 12Height 71 in or 1.8 mWeight 166 lb or 75.3 kgBMI 23.1Temperature: 97 F or 36.1 CPulse Oximetry: 94 % at rest on no oxygen Chief Complaint: Addressed in HPI Problems or conditions discussed in the HPI were the only ones reviewed during the encounter.Only social and family history addressed in the HPI were reviewed during this encounter. Attendant(s): NoneConstitutional and Systemic Symptoms:none Medication Reconciliation: from medication list. Ytvctwwvvik79/31/2023: Echocardiogram shows an estimated ejection fraction of 60%. Patient is in atrial fibrillation. And demonstrates normal left ventricular systolic function. There was aortic sclerosis noted nonspecific thickening in the tricuspid valve with moderate tricuspid regurgitation. 03/10/2023 Holter monitor demonstrated atrial fib flutter. Maximum heart rate 109 average heart rate 70. The minimum heart rate was 61 beats per minute. History of Present Illness #1. Essential Hypertension: Stage: Stage I Interval Neurological Complaints no headaches, dizziness, weakness, visual changes, ataxia, aphasia and apraxia. No shortness of breath, orthopnea or cardiovascular symptoms. No other symptoms related to end organ damage. Pressure has been under excellent control. Currently normal. No other end organ symptoms or findings. Therapy reviewed regarding management of hypertension and includes salt restriction and Lisinopril. #2. Type II Hypercholesterolaemia: Currently taking medication and tolerating well. No interval complaints of any muscle pain or arthralgia. No significant liver changes with medications. Last lipid panel: fair control. Therapy reviewed regarding treatment of cholesterol management and include diet and Lipitor. #3. Atrial Fibrillation: Type: Paroxysmal with recurrent episodes lasting less than 7 days. Further classification: Non-valvular. Associated history of essential hypertension and diabetes. No attending hx of any shortness of breath, palpitations, syncopal or neurological symptoms. Current medications: no specific medication. Rate control: controlled ventricular response [id number] Criteria: Age > 75 and and considered moderate risk for embolic phenomenon. Anticoagulation: Xarelto #4. History of chronic renal failure currently doing well. 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 Stage: CKD-3a. Albumin Stage: A1. There has been no change in urine output or color. No fever or chills. #5. Type II Diabetes: Has had no polyuria polyphagia or polydipsia. Has had no hypoglycemic like responses. No new history of any numbness, tingling, weakness or visual problems. No nausea, anorexia or other constitutional symptoms. There has been no foot problems or non healing lesions. The last HAIC was <6.5. Average blood sugars 100-115 mg%. Checking sugars : not at all Medication Types Include: GLP-1, Sulfonylureas and SGLT2 inhibitors Secondary complications include nephropathy. Macro-vascular complications include none. Therapy reviewed regarding diabetic management and include Farxiga, Glyburide and Trulicity Compliance: good Renal Protection: ROBBIE inhibitors Lipid management: statins Urinary microalbumin: A1 . Ophthalmological: has seen eye doctor within the last year Active Medication ListAllopurinol 100 MG (TABLET - ORAL) Once DailyPreservision Vitamins DailyLasix 40 MG TABLET One DailyLipitor 40 MG (TABLET - ORAL) One Daily For CholesterolFlomax 0.4 MG One Hs For ProstateOcuvite As DirectedLisinopril 5 MG (TABLET - ORAL) One DailyFerrous Sulfate 325 MG One Twice A DayTrulicity 1.5 MG/0.5 ML (INJECTABLE - INJECTION) Once WeeklyGlyburide 5 MG (TABLET - ORAL) One DailyVascepa 1 GM (CAPSULE - ORAL) 2 BidTravatan 0.004% (SOLUTION/DROPS - OPHTHALMIC) One Drop Each Eye DailyVitamin D DailyXarelto 15 MG (TABLET - ORAL) Once DailyFarxiga 10 MG (TABLET - ORAL) Once Daily Vaccination and Cgzngptnwewn5451-71 Glz7793-73 Bqcxdtbbo6411-44 Covid Booster Ctxtdjj7294-31 Covid Wdcqevd2874-64 Prevnar 13 Lr6227-24 Ucjxoloae5088-96 Zostavax (shingles) Surgical Iunigze1717-83 Lt. APX6527-33 Right SWY9545-37 Rt. Uochdonq5869-21 Left Laser Cataract iijqbkdj3827-03 Lt. rvctofyg7166-95 Lt Ijbmkeng9395-29 Laser Left Sgt4362-05 Right Bghwacfy5932-83 Rt. Detached Retina Preventative Testing Confirmed by Our Bqunwhu6505/06/2023 HAIC 6.3 % OF TOTAL HGB H002/24/2023 WLOQKEHVTTULK30/05/2022 ALBUMIN 4.0 G/DL N108/29/2018 MICRO ALBUMIN 0.5 MG/DL N004/23/2016 PSA 1.2 NG/ML N109/04/2012 COLONOSCOPY (5 YEARS) 07/05/2018 Social HistoryDoes not smoke cigarettes. 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 This represents approximately a 2.4% change in weight. Weight change attributable to lifestyle changes. Vital Signs:Blood Pressure: Sitting Rt. Arm 120/82Pulse: Sitting 76 /min and RegularRespiratory Rate: 12Height 71 in or 1.8 mWeight 170 lb or 77.1 kgBMI 23.7Temperature: 97 F or 36.1 CPulse Oximetry: 98 % at rest on no oxygen Chief Complaint: Addressed in HPI Problems or conditions discussed in the HPI were the only ones reviewed during the encounter.Only social and family history addressed in the HPI were reviewed during this encounter. Attendant(s): NoneConstitutional and Systemic Symptoms:none Medication Reconciliation: from medication list. Opwacscjojn26/31/2023: Echocardiogram shows an estimated ejection fraction of 60%. Patient is in atrial fibrillation. And demonstrates normal left ventricular systolic function. There was aortic sclerosis noted nonspecific thickening in the tricuspid valve with moderate tricuspid regurgitation. 03/10/2023 Holter monitor demonstrated atrial fib flutter. Maximum heart rate 109 average heart rate 70. The minimum heart rate was 61 beats per minute. History of Present Illness #1. Essential Hypertension: Stage: Stage I Interval Neurological Complaints no headaches, dizziness, weakness, visual changes, ataxia, aphasia and apraxia. No shortness of breath, orthopnea or cardiovascular symptoms. No other symptoms related to end organ damage. Pressure has been under excellent control. Currently normal. No other end organ symptoms or findings. Therapy reviewed regarding management of hypertension and includes salt restriction and Lisinopril. #2. Atrial Fibrillation: Type: Paroxysmal with recurrent episodes lasting less than 7 days. Further classification: Lone atrial fibrillation. Associated history of essential hypertension and diabetes. No attending hx of any shortness of breath, palpitations, syncopal or neurological symptoms. Current medications: Xarelto. Rate control: controlled ventricular response [id number] Criteria: Age > 75 for embolic phenomenon. Anticoagulation: Xarelto #3. History of chronic renal failure currently doing well. 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 Stage: CKD-3b. Albumin Stage: A1. There has been no change in urine output or color. No fever or chills.#4. History of type 2 diabetes currently taking glyburide, Trulicity and Farxiga. Last hemoglobin A1c was 6.7 which calculates out to a mean blood sugar of 146. Active Medication ListAllopurinol 100 MG (TABLET - ORAL) Once DailyPreservision Vitamins DailyLasix 40 MG TABLET One DailyLipitor 40 MG (TABLET - ORAL) One Daily For CholesterolFlomax 0.4 MG One Hs For ProstateOcuvite As DirectedLisinopril 5 MG (TABLET - ORAL) One DailyFerrous Sulfate 325 MG One Twice A DayTrulicity 1.5 MG/0.5 ML (INJECTABLE - INJECTION) Once WeeklyGlyburide 5 MG (TABLET - ORAL) One DailyVascepa 1 GM (CAPSULE - ORAL) 2 BidTravatan 0.004% (SOLUTION/DROPS - OPHTHALMIC) One Drop Each Eye DailyVitamin D DailyXarelto 15 MG (TABLET - ORAL) Once DailyFarxiga 10 MG (TABLET - ORAL) Once Daily Vaccination and Fifotxvldbkz3931-90 Eqv6693-97 Gwqlfljzb4553-04 Covid Booster Ygebfdk0013-28 Covid Smtnjnl4131-75 Prevnar 13 Ln0221-83 Tfkbkcmlu5834-23 Zostavax (shingles) Surgical Qnngxnj0461-06 Lt. BBD2029-10 Right DRX4056-92 Rt. Dmupyygi2888-09 Left Laser Cataract vvatvmfo0299-32 Lt. evkrwlaa3072-47 Lt Isdvvoiz0476-34 Laser Left Exa6137-67 Right Bdkqegde0834-21 Rt. Detached Retina Preventative Ckkskzv8610/13/2023 ALBUMIN 3.9 G/DL N010/13/2023 MICRO ALBUMIN 0.4 MG/DL N010/13/2023 HAIC 6.7 % OF TOTAL HGB H002/24/2023 LDJTGPIYXKIVG19/07/2016 PSA 1.2 NG/ML N109/04/2012 COLONOSCOPY (5 YEARS) 07/05/2018 Social HistoryDoes not smoke cigarettes. 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 This represents approximately a 2.9% change in weight. Weight change attributable to lifestyle changes. Vital Signs:Blood Pressure: Sitting Rt. Arm 118/74Pulse: Sitting 68 /min and RegularRespiratory Rate: 14Height 71 in or 1.8 mWeight 165 lb or 74.8 kgBMI 23.0Temperature: 97.7 F or 36.5 CPulse Oximetry: 98 % at rest on no oxygen Chief Complaint: Addressed in HPI Problems or conditions discussed in the HPI were the only ones reviewed during the encounter.Only social and family history addressed in the HPI were reviewed during this encounter. Attendant(s): WifeConstitutional and Systemic Symptoms:none Medication Reconciliation: from medication list. Efrgosffeqe93/31/2023: Echocardiogram shows an estimated ejection fraction of 60%. Patient is in atrial fibrillation. And demonstrates normal left ventricular systolic function. There was aortic sclerosis noted nonspecific thickening in the tricuspid valve with moderate tricuspid regurgitation. 03/10/2023 Holter monitor demonstrated atrial fib flutter. Maximum heart rate 109 average heart rate 70. The minimum heart rate was 61 beats per minute. History of Present Illness #1. Complaining of significant increase in lower back pain with some radiation down both legs and in to the lower limbs below the knee bilaterally. Tends to be worse with any type of activity particularly ambulation. Does get bad enough at times that he has to stop walking. No history of any appreciable and injury. Denies any incontinence of urine or stool there has been no associated history of any type of trauma etc.. No saddle anesthesia. May have a component some peripheral vascular disease. Pulses are somewhat diminished but not greatly.: #2. Essential Hypertension: Stage: normal Interval Neurological Complaints no headaches, dizziness, weakness, visual changes, ataxia, aphasia and apraxia. No shortness of breath, orthopnea or cardiovascular symptoms. No other symptoms related to end organ damage. Pressure has been under excellent control. Currently normal. No other end organ symptoms or findings. Therapy reviewed regarding management of hypertension and includes salt restriction and Lisinopril. #3. Atrial Fibrillation: Type: Persistent with recurrent episodes lasting longer than 7 days. Further classification: Non-valvular. Associated history of HTN and diabetes. No attending hx of any shortness of breath, palpitations, syncopal or neurological symptoms. Current medications: no specific medication. Rate control: rapid ventricular response [id number] Criteria: hypertension, Age > 75 and and considered moderate risk for embolic phenomenon. Anticoagulation: Xarelto #4. Type II Hypercholesterolaemia: Currently taking medication and tolerating well. No interval complaints of any muscle pain or arthralgia. No significant liver changes with medications. Last lipid panel: excellent control. Therapy reviewed regarding treatment of cholesterol management and include diet and Lipitor. #5. Type II Diabetes: Has had no polyuria polyphagia or polydipsia. Has had no hypoglycemic like responses. No new history of any numbness, tingling, weakness or visual problems. No nausea, anorexia or other constitutional symptoms. There has been no foot problems or non healing lesions. The last HAIC was DCCT HAIC: 6.7 Calculated MB mg%. Average blood sugars 125-150 mg%. Checking sugars : several times a week Medication Types Include: GLP-1, Sulfonylureas and SGLT2 inhibitors Secondary complications include nephropathy. Macro-vascular complications include none. Therapy reviewed regarding diabetic management and include Farxiga, Glyburide and Trulicity Compliance: good Renal Protection: ROBBIE inhibitors Lipid management: statins Urinary microalbumin: A1 . Ophthalmological: has seen eye doctor within the last year Active Medication ListAllopurinol 100 MG (TABLET - ORAL) Once DailyPreservision Vitamins DailyLasix 40 MG TABLET One DailyLipitor 40 MG (TABLET - ORAL) One Daily For CholesterolFlomax 0.4 MG One Hs For ProstateOcuvite As DirectedLisinopril 5 MG (TABLET - ORAL) One DailyFerrous Sulfate 325 MG One Twice A DayTrulicity 1.5 MG/0.5 ML (INJECTABLE - INJECTION) Once WeeklyGlyburide 5 MG (TABLET - ORAL) One DailyVascepa 1 GM (CAPSULE - ORAL) 2 BidTravatan 0.004% (SOLUTION/DROPS - OPHTHALMIC) One Drop Each Eye DailyVitamin D DailyXarelto 15 MG (TABLET - ORAL) Once DailyFarxiga 10 MG (TABLET - ORAL) Once Daily Vaccination and Xcfvfxwgtphw9921-66 Idy9521-71 Gfhotfgfe7769-07 Covid Booster Hnlaxbq4328-56 Covid Rmkbufk2307-62 Prevnar 13 Ps2633-75 Chdylbgsk3431-48 Zostavax (shingles) Surgical Aibysef5194-75 Lt. SJL1115-02 Right SYS3655-06 Rt. Shxhgdon1399-09 Left Laser Cataract dtopunft7258-95 Lt. wyjrbnwj1073-28 Lt Xzhfdpgs8527-31 Laser Left Klg9194-31 Right Riprzhdh2885-19 Rt. Detached Retina Preventative Bnbpssw6901/12/2024 MKQWTHOGAIUUH06/27/2024 ALBUMIN 3.9 G/DL N010/13/2023 MICRO ALBUMIN 0.4 MG/DL N010/13/2023 HAIC 6.7 % OF TOTAL HGB H004/23/2016 PSA 1.2 NG/ML N109/04/2012 COLONOSCOPY (5 YEARS) 07/05/2018 Social HistoryDoes not smoke cigarettes. 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 Arm 122/68Pulse: Sitting 64 /min and RegularRespiratory Rate: 14Height 71 in or 1.8 mWeight 164 lb or 74.4 kgBMI 22.9Temperature: 97 F or 36.1 CPulse Oximetry: 98 % at rest on no oxygen Chief Complaint: Addressed in HPI Problems or conditions discussed in the HPI were the only ones reviewed during the encounter.Only social and family history addressed in the HPI were reviewed during this encounter. A significant, separate E/M service was performed to evaluate the current and new problems. Attendant(s): WifeConstitutional and Systemic Symptoms:none Medication Reconciliation: from medication list. Xlxzbzaoohi01/31/2023: Echocardiogram shows an estimated ejection fraction of 60%. Patient is in atrial fibrillation. And demonstrates normal left ventricular systolic function. There was aortic sclerosis noted nonspecific thickening in the tricuspid valve with moderate tricuspid regurgitation. 03/10/2023 Holter monitor demonstrated atrial fib flutter. Maximum heart rate 109 average heart rate 70. The minimum heart rate was 61 beats per minute. 03-14-2024: MRI lumbar spine there is advanced degenerative disc space narrowing at L4-L5. There is diffuse disc bulge with severe facet arthropathy and associated with moderate severe spinal stenosis with thecal sac compression. There is moderate advanced bilateral neural foraminal stenosis. 03-31-2024: echocardiogram estimated ejection fraction 55%. Mild aortic stenosis with estimated aortic valve area is 1.7 sq cm. Estimated peak pulmonary artery systolic pressure 40 mmHg. There is moderate pulmonic regurgitation noted. History of Present Illness Reviewed the findings of the preventative health visit. Addressed all areas with the patient, patient's family or caregivers. Preventative examinations and testing immunizations - vaccinations, colonic neoplasm screening and PSA all reviewed and ordered where patient was amenable to the recommendations. Cognitive function was normal. Depression addressed and where necessary medications were adjusted or instituted. End of life and living will briefly discussed with patient and where these can be filled out and legally executed. Other blood and imaging studies were ordered if considered necessary. Other recommendations may be found in the encounter note. #1. Essential Hypertension: Stage: Stage I Interval Neurological Complaints no headaches, dizziness, weakness, visual changes, ataxia, aphasia and apraxia. No shortness of breath, orthopnea or cardiovascular symptoms. No other symptoms related to end organ damage. Pressure has been under fair control. Currently normal. No other end organ symptoms or findings. Therapy reviewed regarding management of hypertension and includes salt restriction and Lisinopril. #2. Type II Hypercholesterolaemia: Currently taking medication and tolerating well. No interval complaints of any muscle pain or arthralgia. No significant liver changes with medications. Last lipid panel: fair control. Therapy reviewed regarding treatment of cholesterol management and include diet and Lipitor. #3. Type II Diabetes: Has had no polyuria polyphagia or polydipsia. Has had no hypoglycemic like responses. No new history of any numbness, tingling, weakness or visual problems. No nausea, anorexia or other constitutional symptoms. There has been no foot problems or non healing lesions. The last HAIC was DCCT HAIC: 6.7 Calculated MB mg%. CGM: No. Average blood sugars unknown. Checking sugars : infrequently. Medication Types Include: GLP-1, Sulfonylureas and SGLT2 inhibitors Secondary complications include none. Macro-vascular complications include none. Therapy reviewed regarding diabetic management and include Farxiga, Glyburide and Trulicity Compliance: good Renal Protection: ROBBIE inhibitors Lipid management: statins Urinary microalbumin: A1 . Ophthalmological: has seen eye doctor within the last year. Control: Good Control 6.2 - 7.0 #4. History of chronic renal failure currently doing well. 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 Stage: CKD-3b. Albumin Stage: A1. There has been no change in urine output or color. No fever or chills. Active Medication ListAllopurinol 100 MG (TABLET - ORAL) Once DailyPreservision Vitamins DailyLasix 40 MG TABLET 2 Once DailyLipitor 40 MG (TABLET - ORAL) One Daily For CholesterolFlomax 0.4 MG One Hs For ProstateOcuvite As DirectedLisinopril 5 MG (TABLET - ORAL) One DailyFerrous Sulfate 325 MG One Twice A DayTrulicity 1.5 MG/0.5 ML (INJECTABLE - INJECTION) Once WeeklyGlyburide 5 MG (TABLET - ORAL) One DailyVascepa 1 GM (CAPSULE - ORAL) 2 BidTravatan 0.004% (SOLUTION/DROPS - OPHTHALMIC) One Drop Each Eye DailyVitamin D DailyMultivitamin DailyXarelto 15 MG (TABLET - ORAL) Once DailyFarxiga 10 MG (TABLET - ORAL) Once Daily Vaccination and Irjlxsckvhik3351-85 Covid Booster Cepvpme6966-69 Kpl1025-38 Mzlicxfmu7971-48 Covid Uyboizr5826-30 Prevnar 13 Jz8091-00 Pttelkqxc2986-78 Zostavax (shingles) Surgical Lngyjby9430-13 Lt. ZOG8316-14 Right UWY1570-66 Rt. Ffjhwrxt8331-79 Left Laser Cataract yrermazn7081-77 Lt. cqxpcwls7744-98 Lt Pwaqxgmg9683-37 Laser Left Rsz2269-89 Right Jndtdtvu8077-99 Rt. Detached Retina Preventative Testing( ) 01/12/2024 Ophthalmology( ) 10/13/2023 Albumin 3.9 G/DL N( ) 10/13/2023 Micro Albumin 0.4 MG/DL N( ) 10/13/2023 HAIC 6.7 % OF TOTAL HGB H( ) 04/23/2016 PSA 1.2 NG/ML N 04/23/2018( ) 07/05/2013 Colonoscopy (5 years) 07/05/2018 Social HistoryDoes not smoke cigarettes. 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 Arm 118/58Pulse: Sitting 92 /min and RegularRespiratory Rate: 16Height 71 in or 1.8 mWeight 164.5 lb or 74.6 kgBMI 22.9Temperature: 97 F or 36.1 CPulse Oximetry: 98 % at rest on no oxygen Chief Complaint: Addressed in HPI Problems or conditions discussed in the HPI were the only ones reviewed during the encounter.Only social and family history addressed in the HPI were reviewed during this encounter. Attendant(s): NoneConstitutional and Systemic Symptoms:none Medication Reconciliation: from medication list. Msswgycenhn98/31/2023: Echocardiogram shows an estimated ejection fraction of 60%. Patient is in atrial fibrillation. And demonstrates normal left ventricular systolic function. There was aortic sclerosis noted nonspecific thickening in the tricuspid valve with moderate tricuspid regurgitation. 03/10/2023 Holter monitor demonstrated atrial fib flutter. Maximum heart rate 109 average heart rate 70. The minimum heart rate was 61 beats per minute. 03-14-2024: MRI lumbar spine there is advanced degenerative disc space narrowing at L4-L5. There is diffuse disc bulge with severe facet arthropathy and associated with moderate severe spinal stenosis with thecal sac compression. There is moderate advanced bilateral neural foraminal stenosis. 03-31-2024: echocardiogram estimated ejection fraction 55%. Mild aortic stenosis with estimated aortic valve area is 1.7 sq cm. Estimated peak pulmonary artery systolic pressure 40 mmHg. There is moderate pulmonic regurgitation noted. History of Present Illness #1. Essential Hypertension: Stage: Stage I Interval Neurological Complaints no headaches, dizziness, weakness, visual changes, ataxia, aphasia and apraxia. No shortness of breath, orthopnea or cardiovascular symptoms. No other symptoms related to end organ damage. Pressure has been under excellent control. Currently normal. No other end organ symptoms or findings. Therapy reviewed regarding management of hypertension and includes salt restriction and Lisinopril. #2. Atrial Fibrillation: Type: Persistent with recurrent episodes lasting longer than 7 days. Further classification: Non-valvular. Associated history of HTN and diabetes. No attending hx of any shortness of breath, palpitations, syncopal or neurological symptoms. Current medications: no specific medication. Rate control: rapid ventricular response [id number] Criteria: congestive heart failure for embolic phenomenon. Anticoagulation: Xarelto #3. Type II Hypercholesterolaemia: Currently taking medication and tolerating well. No interval complaints of any muscle pain or arthralgia. No significant liver changes with medications. Last lipid panel: excellent control. Therapy reviewed regarding treatment of cholesterol management and include diet and Lipitor and Vascepa. #4. Type II Diabetes: Has had no polyuria polyphagia or polydipsia. Has had no hypoglycemic like responses. No new history of any numbness, tingling, weakness or visual problems. No nausea, anorexia or other constitutional symptoms. There has been no foot problems or non healing lesions. The last HAIC was DCCT HAIC: 6.5 Calculated MB mg%. CGM: No. Average blood sugars 100-115 mg%. Checking sugars : several times a week. Medication Types Include: GLP-1, Sulfonylureas and SGLT2 inhibitors Secondary complications include none. Macro-vascular complications include none. Therapy reviewed regarding diabetic management and include Farxiga, Glyburide and Trulicity Compliance: good Renal Protection: ROBBIE inhibitors Lipid management: statins Urinary microalbumin: A1 . Ophthalmological: has seen eye doctor within the last year. Control: Good Control 6.2 - 7.0 #5. History of chronic renal failure currently doing well. 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 Stage: CKD-3b. Albumin Stage: A1. There has been no change in urine output or color. No fever or chills. Active Medication ListAllopurinol 100 MG (TABLET - ORAL) Once DailyPreservision Vitamins DailyLasix 40 MG TABLET Once DailyLipitor 40 MG (TABLET - ORAL) One Daily For CholesterolFlomax 0.4 MG One Hs For ProstateOcuvite As DirectedLisinopril 2.5 MG TABLET One DailyFerrous Sulfate 325 MG One Twice A DayTrulicity 1.5 MG/0.5 ML (INJECTABLE - INJECTION) Once WeeklyGlyburide 5 MG (TABLET - ORAL) One DailyVascepa 1 GM (CAPSULE - ORAL) 2 BidTravatan 0.004% (SOLUTION/DROPS - OPHTHALMIC) One Drop Each Eye DailyVitamin D DailyMultivitamin DailyXarelto 15 MG (TABLET - ORAL) Once DailyFarxiga 10 MG (TABLET - ORAL) Once Daily Vaccination and Immunization( ) 2007-06 PNEUMOVAX( ) 2024-08 INFLUENZA( ) 2007-04 ZOSTAVAX (SHINGLES)( ) 2014-09 PREVNAR 13 GC( ) 2014-09 SHINGRIX( ) 2021-05 COVID MODERNA( ) 2024-03 COVID BOOSTER MODERNA( ) 2023-04 RSV( ) 2024-08 PREVNAR 20 Surgical Hofuzxx6870-66 Lt. WZY2899-39 Right EJU7044-50 Rt. Hsblwswr8316-54 Left Laser Cataract ejsyfmnt4018-77 Lt. xzsoxgdx5305-85 Lt Cluonwpi7936-92 Laser Left Whz8983-89 Right Sxaeodaf5940-88 Rt. Detached Retina Preventative Testing( ) 05/18/2024 Albumin 3.8 G/DL N( ) 05/18/2024 HAIC 6.5 % OF TOTAL HGB H( ) 01/12/2024 Ophthalmology( ) 10/13/2023 Micro Albumin 0.4 MG/DL N( ) 04/23/2016 PSA 1.2 NG/ML N( ) 07/05/2013 Colonoscopy (5 years) 07/05/2018 Social HistoryDoes not smoke cigarettes. 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 Family HistoryMother 77 years oldFather 79 years old3 Brothers 1 Living2 Sisters 0 LivingMother Hx: DM, HTNFather Hx: MVABrother Hx: DM (4) , HTN (2) , Ca of Brain (1) CVA(1) Dementia(1)Sisters Hx: CVA(1), Dementia(1), COVID TEST RESULT RANGE UNITSCBC (INCLUDES DIFF/PLT) Date: 05/18/2024WHITE BLOOD CELL COUNT 6.8 3.8-10.8 THOUSAND/ULHEMOGLOBIN 9.4 13.2-17.1 G/DLHEMATOCRIT 30.3 38.5-50.0 %PLATELET COUNT 218 140-400 THOUSAND/ULCOMPREHENSIV E METABOLIC PANEL Date: 05/18/2024SODIUM 137 135-146 MMOL/LPOTASSIUM 4.4 3.5-5.3 MMOL/LUREA NITROGEN (BUN) 73 7-25 MG/DLCREATININE 2.59 0.70-1.22 MG/DLEGFR 23 > OR = 60 ML/MIN/1.22N0IXNMKNM 138 65-99 MG/DLCALCIUM 8.9 8.6-10.3 MG/DLBILIRUBIN, TOTAL 0.5 0.2-1.2 MG/DLALKALINE PHOSPHATASE 71 35-144 U/LAST 26 10-35 U/LALT 18 9-46 U/LHEMOGLOBIN A1C Date: 05/18/2024HEMOGLOBIN A1C 6.5 <5.7 % OF TOTAL HGBLIPID PANEL W/REFL DIRECT LDL, CARDIO IQ(R) Date: 4CHOLESTEROL, TOTAL 92 <200 MG/DLHDL CHOLESTEROL 24 >39 MG/DLTRIGLYCERIDES 143 <150 MG/DLLDL-CHOLESTEROL 45 <100 MG/DL (CALC) Rhonda Ramirez MD [address] [facility], [facility] [address], [place], [address], [place] [facility] [employer] 09/15/2024 11:59:42
--- OUTSIDE RECORDS SUMMARY | 2024-11-28 12:36 | XMS_ITS | Clinical Summary ---
Author Organization [facility] Address [address] [place] [address] Care Team Providers Care Type Casting Machine Operator Name Role Phone Jamal Ramirez MD Primary Care Provider [phone] Allergies No known active allergies Medications dapagliflozin propanediol (Farxiga) 10 mg Tablet Farxiga 10 mg tablet 2 Active dulaglutide (Trulicity) 1.5 mg/0.5 mL injection Trulicity 1.5 mg/0.5 mL pen injector 1 Active rivaroxaban (Xarelto) 15 mg Tablet Xarelto 15 mg tablet 2 Active furosemide (LASIX) 40 mg tablet Take 40 mg by mouth 2 times daily. Active glyBURIDE (DIABETA) 5 mg tablet Take 5 mg by mouth daily with breakfast. Active tamsulosin (FLOMAX) 0.4 mg capsule Take 0.4 mg by mouth daily. Active lisinopriL (PRINIVIL) 5 mg tablet Take 2.5 mg by mouth daily. Active allopurinoL (ZYLOPRIM) 100 mg tablet Take 100 mg by mouth daily. Active atorvastatin (LIPITOR) 40 mg tablet Take 40 mg by mouth daily. Active Vit C-Vit R-Sxxlxj-MsMh-Rachel tein (PRESERVISION) 226-90-0.8-5 mg Capsule Take 1 Capsule by mouth daily. Active cholecalciferol, Vitamin D3, (VITAMIN D3) 25 mcg (1,000 unit) Capsule Take by mouth daily. Active multivitamin (DAILY-JENIFER) tablet Take 1 Tablet by mouth daily. Active acetaminophen (TYLENOL) 500 mg tablet Take 500 mg by mouth every 6 hours as needed. Active pseudoephed/diph enhydramine (BENADRYL-D ALLERGY & SINUS ORAL) Take by mouth. Activ e ferrous sulfate 325 mg (65 mg iron) tablet Take 325 mg by mouth daily. Active icosapent ethyL (VASCEPA) 1 gram Capsule icosapent ethyl 1 gram capsule 2 Active dorzolamide (TRUSOPT) 2 % solution Apply to affected area. 1 Active Active Problems No known active problems Encounters Date Type Department Care Team Description 11/28/2024 Orders Only [facility] Oncology and Hematology - [address] [place] [address] Sinan Calderon MD Chronic anemia 11/14/2024 Orders Only [facility] Oncology and Hematology - [address] [place] [address] Sinan Calderon MD Chronic anemia 11/02/2024 External Device Data STL ABSTRACTION Provider, Abstract 10/31/2024 Orders Only [facility] Oncology and Hematology - [address] [place] [address] Sinan Calderon MD Chronic anemia 10/22/2024 External Device Data STL ABSTRACTION Provider, Abstract 10/21/2024 External Device Data STL ABSTRACTION Provider, Abstract 10/17/2024 Orders Only [facility] Oncology and Hematology - [address] [place] [address] Sinan Calderon MD Chronic anemia 10/05/2024 External Device Data STL ABSTRACTION Provider, Abstract 10/03/2024 Orders Only [facility] Oncology and Hematology - [address] [place] [address] Sinan Calderon MD Chronic anemia 09/23/2024 10:45 AM CEMENT WORKER Office Visit [facility] Oncology and Hematology - [address] [place] [address] Anson Brasher MD Chronic anemia (Primary Dx) 09/19/2024 Orders Only [facility] Oncology and Hematology - [address] [place] [address] Sinan Calderon MD Chronic anemia 09/07/2024 External Device Data STL ABSTRACTION Provider, Abstract 09/07/2024 External Device Data STL ABSTRACTION Provider, Abstract 09/06/2024 Orders Only [facility] Oncology and Hematology - [address] [place] [address] Anson Brasher MD 09/05/2024 Orders Only [facility] Oncology and Hematology - [address] [place] [address] Sinan Calderon MD Chronic anemia from Last 3 Months Family History Medical History Relation Name Comments Brain Cancer Brother 2 Diabetes Mother Heart Disease Mother Relation Name Status Comments Brother 1 Alive Brother 2 Brother 3 Daughter 1 Alive Daughter 2 Alive Father Mother Sister 1 Sister 2 Son Alive Social History Tobacco Use Types Packs/Day Years Used Date Smoking Tobacco: Never Smokeless Tobacco: Never Tobacco Cessation:Counseling Given: Not Answered Alcohol Use Standard Drinks/Week Comments Not Currently 0 (1 standard drink = 0.6 oz pur e alcohol) Sex and Gender Information Value Date Recorded Sex Assigned at Not on file Legal Sex Male 12:23 PM CDT Gender Identity Not on file Sexual Orientation Not on file Last Filed Vital Signs Vital Sign Reading Time Taken Comments Blood Pressure 107/61 09/23/2024 10:56 AM CEMENT WORKER Pulse 67 09/23/2024 10:56 AM CEMENT WORKER Temperature 36.6 C (97.9 F) 09/23/2024 10:56 AM CEMENT WORKER Respiratory Rate 16 09/23/2024 10:56 AM CEMENT WORKER Oxygen Saturation 98% 05/20/2024 10:45 AM CDT Inhaled Oxygen Concentration - - Weight 73 kg (161 lb) 09/23/2024 10:56 AM CEMENT WORKER Height 182.9 cm (6') 06/24/2023 1:18 PM CEMENT WORKER Body Mass Index 21.84 06/24/2023 1:18 PM CEMENT WORKER Plan of Treatment Upcoming Encounters Date Type Department Care Team (Late st Contact Info) Description 01/23/2025 9:45 AM CDT Office Visit [facility] Oncology and Hematology - [address] [place] [address] Anson Brasher MD [address] [facility] [address] [place] [address] Health Maintenance Due Date Last Done Comments DIABETES ANNUAL FOOT EXAM 1955 DIABETES ANNUAL RETINAL EXAM 1955 DIABETES HBA1C Q 6 MONTHS 1955 DIABETES MICROALBUMIN ANNUAL SCREEN 1955 LDL CHOLESTEROL ANNUAL 1955 ZOSTER VACCINE (1 of 2) 1987 RSV VACCINE (60+ or ) (1 - 1-dose 75+ series) 2012 INFLUENZA VACCINE (#1) 2024 05/20/2022, 2020 DTAP/TDAP/TD VACCINES (2 - Td or Tdap) 10/23/2024 Traditional Medicare (ACO) A nnual Wellness Visit 05/13/2025 05/12/2024, 05/01/2023 PNEUMOCOCCAL VACCINE 50+ YEARS Completed 09/22/2024 , 10/06/2014 Procedures Procedure Name Priority Date/Time Associated Diagnosis Comments CBC WITH DIFFERENTIAL Routine 09/05/2024 1:39 PM CEMENT WORKER from Last 3 Months Results * CBC WITH DIFFERENTIAL (09/05/2024 1:39 PM CEMENT WORKER) Blood us Anson Brasher MD HEMATOLOGY ORDERABLES Final Res ult from Last 3 Months Insurance MEDICARE PART A AND B BC TRADITIONAL Care Teams Type Casting Machine Operator Relationship Specialty Start Date End Date Jamal Ramirez MD [address] [place] [phone] PCP - General Internal Medicine 06/24/23
--- OUTSIDE RECORDS SUMMARY | 2024-11-28 12:36 | XMS_ITS ---
Author Organization [facility] [place] [facility] Address [address] [place] [address] Care Team Providers Care Team Assembler Name Role Phone Mendoza Edilia Vazquez [phone] MEDICATIONS Medication SIG (Take, Route, Fr equency, Duration) Notes Start Date End Date Status Furosemide 40 MG 1 tablet Orally twic e a day for 90 days 05/27/2024 11/23/2024 Active Encounters Encounter Location Date Provider Diagnosis [facility] [place] [facility] [address] [place] [address] 05/27/2024 Edilia Donaldson PLAN OF TREATMENT Medication Medication Name Sig Start Date Stop Date Notes Furosemide 40 MG 1 tablet Orally twice a day for 90 days 1 11/23/2024 Next Appt Details Provider Name:Edilia silveira, 12/05/2024 03:15:00 PM, [address], [place], [address], Progress Notes * LOAN AGUILERADOB:1935 (89 yo M)Acc No.[id number]:05/27/2024 Patient: LOAN AGUILERA :1935 Age:89 Y Sex:Male Address:[address] [place], [address] * Refills Start Furosemide Tablet, 40 MG, Orally, 180 Tablet, 1 tablet, twice a day, 90 days, Refills=1 * * Date:
[2024-11-28 12:48] LABS: Parathyroid Intact 102.9 pg/mL (14.5-75.2)
[2024-11-28 12:52] LABS: Vitamin D 25 Hydroxy 54.8 ng/mL
[2024-11-28 12:54] LABS: Creatinine Urine 14.7 mg/dL
[2024-11-28 13:08] LABS: MALB Creatinine Ratio < 40.8 mg/g (0-30); Microalbumin Urine Random < 6.0 mg/L (0-16.7)
== END 2024-11-28 10:52 | disposition home or self-care (01) ==
LOC: ANHLAB 10:59
PROVIDERS: PCP Internal Medicine
DX: I12.9 Hypertensive chronic kidney disease with stage 1 through stage 4 chronic kidney disease, or unspecified chronic kidney disease (principal); N18.30 Chronic kidney disease, stage 3 unspecified; E11.65 Type 2 diabetes mellitus with hyperglycemia; E55.9 Vitamin D deficiency, unspecified
CPT/HCPCS: 36415; 80069; 81003; 82043; 82306; 83735; 83970; 84550

== ENCOUNTER 2025-05-15 08:53 | Outpatient (CLI) | payer MEDICARE, SELFPAY ==
--- OUTSIDE RECORDS SUMMARY | 2024-01-25 09:30 | XMS_ITS ---
Author Organization [facility] Address [address] [place] [address] Care Team Providers Care Flux Plant Operator Name Role Phone Mendoza Edilia Vazquez [phone] Medications Medication SIG (Take, Route, Fr equency, Duration) Notes Start Date End Date Status Allopurinol 100 mg TAKE 1 TABLET DAILY Active Lisinopril 10 mg TAKE 1 TABLET DAILY Active Encounters Encounter Location Date Provider Diagnosis [facility] [address] [place] [address] 01/25/2024 Edilia Martinez Chronic kidney disea se, stage 3b N18.32 ; Type 2 diabetes mellitus with hyperglycemia E11.65 ; Essential (primary) hypertension I10 ; Atherosclerotic heart disease of [place] coronary artery without angina pectoris I25.10 ; Vitamin D deficiency, unspecified E55.9 and Urinary tract infection, site not specified N39.0 Assessments Encounter Date Diagnosis (ICD Code) Assessment Notes Treatment Notes Treatment Clinical Notes Section Notes 01/25/2024 Chronic kidney disease, stage 3b (ICD-10 - N18.32) 01/25/2024 Type 2 diabetes mellitus with hyperglycemia (ICD-10 - E11.65) 01/25/2024 Essential (primary) hypertension (ICD-10 - I10) 01/25/2024 Atherosclerotic heart disease of [place] coronary artery without angina pectoris (ICD-10 - I25.10) 01/25/2024 Vitamin D deficiency, unspecified (ICD-10 - E55.9) 01/25/2024 Urinary tract infection, site not specified (ICD-10 - N39.0) Plan Of Treatment Next Appt Details Provider Name:Edilia silveira, 07/31/2025 03:15:00 PM, [address], [place], [address], Progress Notes * LOAN AGUILERADOB:1935 (89 yo M)Acc No.[id number]:01/25/2024 Progress Notes Patient: LOAN BUNDY Provider: Diomedes MARTINEZ M.D :1935 A ge:88 Y S ex:Male Date:01/25/2024 Address:[address] [place] [address] Subjective: * Chief Complaints: * * Medical History: * Medications: T aking Allopurinol 100 mg Tablet TAKE 1 TABLET DAILY , Taking Lisinopril 10 mg Tablet TAKE 1 TABLET DAILY Objective: * Vitals: Assessment: * Assessment: 1. C hronic kidney disease, stage 3b - N18.32 (Primary) 2 . T ype 2 diabetes mellitus with hyperglycemia - E11.65 3 . E ssential (primary) hypertension - I10 4 . 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 V itamin D deficiency, unspecified - E55.9 6 . U rinary tract infection, site not specified - N39.0 Plan: * Treatment: * Billing Information: * Visit Code: 03821 Office Visit, Est Pt., Level 3. * Procedure Codes: * Electronic signature of Karen Martinez MD on 05/15/2025 at 09:17 AM CDT Sign off status: Pending * Provider: Diomedes MARTINEZ M.D Date: 01/25/2024 Generated for Julita farr/Steve/eTzensmitting on: 05/15/2025 09:17 AM CDT
--- OUTSIDE RECORDS SUMMARY | 2024-04-04 10:00 | XMS_ITS ---
Author Organization [facility] Address [address] [place] [address] [place] [address] Care Team Providers Care Pipe Liner Name Role Phone MendozaMikala gateshit Unavailable [phone] Problems Problem Type SNOMED Code ICD Code Onset Dates Problem Status W/U Status Risk Notes Problem Iron deficiency anemia (14833634) Iron deficiency anemia, unspecified (D50.9) Active confirmed Encounters Encounter Location Date Provider Diagnosis [facility] [address] [facility] [address] [place] [address] 04/04/2024 Edilia Martinez Chronic kidney disea se, stage 3b N18.32 ; Iron deficiency anemia, unspecified D50.9 ; Type 2 diabetes mellitus with hyperglycemia E11.65 and Essential (primary) hypertension I10 Assessments Encounter Date Diagnosis (ICD Code) Assessment Notes Treatment Notes Treatment Clinical Notes Section Notes 04/04/2024 Chronic kidney disease, stage 3b (ICD-10 - N18.32) 04/04/2024 Iron deficiency anemia, unspecified (ICD-10 - D50.9) 04/04/2024 Type 2 diabetes mellitus with hyperglycemia (ICD-10 - E11.65) 04/04/2024 Essential (primary) hypertension (ICD-10 - I10) Plan Of Treatment Next Appt Details Provider Name:Edilia silveira, 07/31/2025 03:15:00 PM, [address], [address], [place], [address], Progress Notes * LOAN AGUILERADOB:1935 (89 yo M)Acc No.[id number]:04/04/2024 Progress Notes Patient: Lorene SANDOVALMARIANNEALLABY Provider: Diomedes MARTINEZ M.D :1935 A ge:88 Y S ex:Male Date:04/04/2024 Address: [address], [place] [address] Subjective: * Chief Complaints: * * Medical History: Objective: * Vitals: Assessment: * Assessment: 1. C hronic kidney disease, stage 3b - N18.32 (Primary) 2 . I dariana deficiency anemia, unspecified - D50.9 3 . T ype 2 diabetes mellitus with hyperglycemia - E11.65 4 . E ssential (primary) hypertension - I10 Plan: * Treatment: * Billing Information: * Visit Code: 90650 Office Visit, Est Pt., Level 3. * Procedure Codes: * Electronic signature of Karen Martinez MD on 05/15/2025 at 09:17 AM CDT Sign off status: Pending * Provider: Diomedes MARTINEZ M.D Date: 0 04/04/2024 Generated for Julita farr/Steve/Jayro on: 0 05/15/2025 09:17 AM CDT
--- OUTSIDE RECORDS SUMMARY | 2024-08-01 09:45 | XMS_ITS ---
Author Organization [facility] Address [address] [place] [address] Care Team Providers Care Conference Assistant Name Role Phone Mendoza Edilia Unavailable [phone] Problems Problem Type SNOMED Code ICD Code Onset Dates Problem Status W/U Status Risk Notes Problem Anemia (710638523) Anemia, unspecified (D64.9) Active confirmed Problem Hypotension (69753848) Hypotension, unspecified (I95.9) Active confirmed Encounters Encounter Location Date Provider Diagnosis [facility] [address] [facility] [address] [place] [address] 08/01/2024 Edilia Martinez Chronic kidney disea se, stage 3b N18.32 ; Hypotension, unspecified I95.9 ; Type 2 diabetes mellitus with hyperglycemia E11.65 and Anemia, unspecified D64.9 Assessments Encounter Date Diagnosis (ICD Code) Assessment Notes Treatment Notes Treatment Clinical Notes Section Notes 08/01/2024 Chronic kidney disease, stage 3b (ICD-10 - N18.32) 08/01/2024 Hypotension, unspecified (ICD-10 - I95.9) 08/01/2024 Type 2 diabetes mellitus with hyperglycemia (ICD-10 - E11.65) 08/01/2024 Anemia, unspecified (ICD-10 - D64.9) Plan Of Treatment Next Appt Details Provider Name:Edilia silveira, 07/31/2025 03:15:00 PM, [address], [address], [place], [address], Progress Notes * LOAN AGUILERADOB:1935 (89 yo M)Acc No.[id number]:08/01/2024 Progress Notes Patient: LOAN BUNDY Provider: Diomedes MARTINEZ M.D :1935 A ge:89 Y S ex:Male Date:08/01/2024 Address:[address] [place] [address] [place] [address] Subjective: * Chief Complaints: * * Medical History: Objective: * Vitals: Assessment: * Assessment: 1. C hronic kidney disease, stage 3b - N18.32 (Primary) 2 . H ypotension, unspecified - I95.9 3 . T ype 2 diabetes mellitus with hyperglycemia - E11.65? 4. A nemia, unspecified - D64.9 Plan: * Treatment: * Billing Information: * Visit Code: 99885 Office Visit, Est Pt., Level 3. * Procedure Codes: * Electronic signature of Karen Martinez MD on 05/15/2025 at 09:17 AM CDT Sign off status: Pending * Provider: Diomedes MARTINEZ M.D Date: 10/02/2023 Generated for Julita farr/Steve/Pietroitting on: 0 05/15/2025 09:17 AM CDT
--- OUTSIDE RECORDS SUMMARY | 2024-12-05 10:15 | XMS_ITS ---
Author Organization [facility] Address [address] [place] [address] Care Team Providers Care Ripper Operator Name Role Phone MendozaMikala gateshit Unavailable [phone] Encounters Encounter Location Date Provider Diagnosis [facility] [place] [facility] [address] [place] [address] 12/05/2024 Edilia Martinez Chronic kidney disease, stage 3b N18.32 ; Type 2 diabetes mellitus with hyperglycemia E11.65 ; Essential (primary) hypertension I10 and Anemia, unspecified D64.9 Assessments Encounter Date Diagnosis (ICD Code) Assessment Notes Treatment Notes Treatment Clinical Notes Section Notes 12/05/2024 Chronic kidney disease, stage 3b (ICD-10 - N18.32) 12/05/2024 Type 2 diabetes mellitus with hyperglycemia (ICD-10 - E11.65) 12/05/2024 Essential (primary) hypertension (ICD-10 - I10) 12/05/2024 Anemia, unspecified (ICD-10 - D64.9) Plan Of Treatment Next Appt Details Provider Name:Edilia silveira, 07/31/2025 03:15:00 PM, [address], [address], [place], [address], Progress Notes * LOAN AGUILERADOB:1935 (89 yo M)Acc No.[id number]:12/05/2024 Progress Notes Patient: LOAN BUNDY Provider: Diomedes MARTINEZ M.D :1935 A ge:89 Y S ex:Male Date:12/05/2024 Address[address] [facility] Subjective: * Chief Complaints: * * Medical History: Objective: * Vitals: Assessment: * Assessment: 1. C hronic kidney disease, stage 3b - N18.32 (Primary) 2 . T ype 2 diabetes mellitus with hyperglycemia - E11.65 3 . E ssential (primary) hypertension - I10 4 . A nemia, unspecified - D64.9 Plan: * Treatment: * Billing Information: * Visit Code: 09984 Office Visit, Est Pt., Level 3. * Procedure Codes: * Electronic signature of Karen Martinez MD on 05/15/2025 at 09:17 AM CDT Sign off status: Pending * Provider: Diomedes MARTINEZ M.D Date: 0 12/05/2024 Generated for Julita farr/Steve/Jayro on: 0 05/15/2025 09:17 AM CDT
--- OUTSIDE RECORDS SUMMARY | 2025-04-03 10:30 | XMS_ITS ---
Author Organization [facility] Address [address] [place] [address] Care Team Providers Care Water Treatment Plant Operator Name Role Phone MendozaMikala gateshit Unavailable [phone] Problems Problem Type SNOMED Code ICD Code Onset Dates Problem Status W/U Status Risk Notes Problem Atrial fibrillation (53669030) Unspecified atrial fibrillation (I48.91) Active confirmed Encounters Encounter Location Date Provider Diagnosis [facility] [address] [facility] [address] [place] [address] 04/03/2025 Edilia Martinez Chronic kidney disea se, stage 3b N18.32 ; Type 2 diabetes mellitus with hyperglycemia E11.65 and Essential (primary) hypertension I10 Assessments Encounter Date Diagnosis (ICD Code) Assessment Notes Treatment Notes Treatment Clinical Notes Section Notes 04/03/2025 Chronic kidney disease, stage 3b (ICD-10 - N18.32) 04/03/2025 Type 2 diabetes mellitus with hyperglycemia (ICD-10 - E11.65) 04/03/2025 Essential (primary) hypertension (ICD-10 - I10) Plan Of Treatment Next Appt Details Provider Name:Edilia silveira, 07/31/2025 03:15:00 PM, [address], [place], [address], Progress Notes * LOAN AGUILERADOB:1935 (89 yo M)Acc No.[id number]:04/03/2025 Progress Notes Patient: ALLA BUNDYBY Provider: Diomedes MARTINEZ M.D :1935 A ge:89 Y S ex:Male Date:04/03/2025 Address:[address] [facility] Subjective: * Chief Complaints: * * Medical History: Objective: * Vitals: Assessment: * Assessment: 1. C hronic kidney disease, stage 3b - N18.32 (Primary) 2 . T ype 2 diabetes mellitus with hyperglycemia - E11.65 3 . E ssential (primary) hypertension - I10 Plan: * Treatment: * Billing Information: * Visit Code: 78825 Office Visit, Est Pt., Level 3. * Procedure Codes: * Electronic signature of Karen Martinez MD on 05/15/2025 at 09:16 AM CDT Sign off status: Pending * Provider: Diomedes MARTINEZ M.D Date: 0 04/03/2025 Generated for Julita farr/Steve/Jayro on: 0 05/15/2025 09:16 AM CDT
--- OUTSIDE RECORDS SUMMARY | 2025-05-15 09:17 | XMS_ITS | Clinical Summary ---
Author Organization [facility] Address [address] [place] [address] Care Team Providers Care Line Lead Name Role Phone Jamal Ramirez MD Primary Care Provider [phone] Allergies No known active allergies Medications dapagliflozin [...] mg by mouth daily. Active Vit C-Vit N-Adxbsb-AuFi-Rachel tein (PRESERVISION) 226-90-0.8-5 mg Capsule Take 1 [...] Encounters Date Type Department Care Team Description 05/15/2025 Orders Only [facility] Oncology and Hematology - [address] [place] [address] Chronic anemia 05/02/2025 External Device Data STL ABSTRACTION Provider, Abstract 05/02/2025 External Device Data STL ABSTRACTION Provider, Abstract 05/01/2025 Orders Only [facility] Oncology and Hematology - Ward [address] [place] [address] Sinan Calderon MD Chronic anemia 04/17/2025 Orders Only [facility] Oncology and Hematology - Ward [address] [place] [address] Sinan Calderon MD Chronic anemia 04/05/2025 External Device Data STL ABSTRACTION Provider, Abstract 04/04/2025 External Device Data STL ABSTRACTION Provider, Abstract 04/03/2025 Orders Only [facility] Oncology and Hematology - Ward [address] [place] [address] Sinan Calderon MD Chronic anemia 03/22/2025 External Device Data STL ABSTRACTION Provider, Abstract 03/21/2025 External Device Data STL ABSTRACTION Provider, Abstract 03/21/2025 Orders Only [facility] Oncology and Hematology - Ward [address] [place] [id number] Anson Brasher MD 03/20/2025 Orders Only [facility] Oncology and Hematology - Ward [address] [place] [address] Sinan Calderon MD Chronic anemia 03/06/2025 Orders Only [facility] Oncology and Hematology - Ward [address] [place] [address] Sinan Calderon MD Chronic anemia 03/01/2025 External Device Data STL ABSTRACTION Provider, Abstract 02/28/2025 External Device Data STL ABSTRACTION Provider, Abstract 02/20/2025 Orders Only [facility] Oncology and Hematology - Ward [address] [place] [address] Sinan Calderon MD Chronic anemia from Last [...] Sign Reading Time Taken Comments Blood Pressure 111/65 01/23/2025 9:39 AM CDT Pulse 74 01/23/2025 9:39 AM CDT Temperature 36.4 C (97.5 F) 01/23/2025 9:39 AM CDT Respiratory Rate 15 01/23/2025 9:39 AM CDT Oxygen Saturation 98% 01/23/2025 9:39 AM CDT Inhaled Oxygen Concentration - - Weight 71.1 kg (156 lb 12.8 oz) 01/23/2025 9:39 AM CDT Height 182.9 cm (6') 06/24/2023 1:18 PM [employer] Body Mass Index 21.27 06/24/2023 1:18 PM [employer] Plan of Treatment Upcoming Encounters Date Type Department Care Team (Late st Contact Info) Description 05/25/2025 9:45 AM CDT Office Visit [facility] Oncology and Hematology - Ward [address] [place] [address] Anson Brasher MD 222 [facility] [address] [place] [address] Health Maintenance Due Date Last Done Comments DIABETES ANNUAL FOOT EXAM 1955 DIABETES MICROALBUMIN ANNUAL SCREEN 1955 LDL CHOLESTEROL ANNUAL 1955 ZOSTER VACCINE (1 of 2) 1987 RSV VACCINE (60+ or ) (1 - 1-dose 75+ series) 2012 DIABETES ANNUAL RETINAL EXAM 12/31/2022, 08/27/2020, 03/06/2020, Additional history exists DTAP/TDAP/TD VACCINES (2 - T d or Tdap) 10/23/2024 10/23/2014 INFLUENZA VACCINE (#1) 2025 05/20/2022, 2020 Traditional Medicare (ACO) A nnual Wellness Visit 05/13/2025 05/12/2024, 05/01/2023 DIABETES HBA1C Q 6 MONTHS 07/16/20252024, 09/16/2024, 05/18/2024, Additional history exists PNEUMOCOCCAL VACCINE 50+ YEARS Completed 09/22/2024 , 10/06/2014 Procedures Procedure Name Priority Date/Time Associated Diagnosis Comments CBC WITH AUTODIFFERENTIAL Routine 2024 10:36 AM CDT from Last 3 Months Results * CBC WITH AUTODIFFERENTIAL (03/20/2025 10:36 AM CDT) Blood us Anson Brasher MD HEMATOLOGY ORDERABLES Final Res ult from Last 3 Months Insurance MEDICARE PART A AND B BCBS TRADITIONAL Care Teams Line Lead Relationship Specialty Start Date End Date Jamal Ramirez MD [address] [facility] [address] [place] [address] PCP - General Internal Medicine 06/24/23
--- OUTSIDE RECORDS SUMMARY | 2025-05-15 09:17 | XMS_ITS | Patient Health Record ---
Author Organization [facility] Address [address] [facility] [address] [place] [address] Care Team Providers Care Latex Ribbon Machine Operator Name Role Phone Edilia Donaldson Unavailable [phone] Results Component Value Reference Range Notes CBC (INCLUDES DIFF/PLT) (358 1) (Not yet reviewed by provider) Interpretation: Performing Lab:DANNIELLE [facility] HospitalAcsdp[address] Sym[facility] HospitalVwcontxRW[address] [employer] Notes/Report: WHITE BLOOD CELL COUNT 9.5 3.8-10.8 [...] MPV 11.2 7.5-12.5 fL ABSOLUTE NEUTROPHILS [phone] cells/uL ABSOLUTE LYMPHOCYTES 762 681-9354 cells/uL ABSOLUTE MONOCYTES 1055 200-950 cells/uL ABSOLUTE EOSINOPHILS 304 15-500 cells/uL ABSOLUTE BASOPHILS 29 0-200 cells/uL NEUTROPHILS 78.9 LYMPHOCYTES 6.5 MONOCYTES 11.1 EOSINOPHILS 3.2 BASOPHILS 0.3 URINALYSIS, COMPLETE W/REFLE X TO CULTURE (8840) (Not yet reviewed by provider) Interpretation: Performing Lab:YADIRA [facility]-Ykmreg23715 [address], [id number] El Yusuf MD Notes/Report: COLOR YELLOW YELLOW APPEARANCE [...] yet reviewed by provider) Interpretation: Performing Lab:YADIRA ProfoundDixieIhumdt91971 [address], [id number] El Yusuf MD Notes/Report: VITAMIN D,25-OH,TOTAL,IA 38 30-100 ng/mL Vitamin D Status 25-OH Vitamin D: Deficiency: <20 ng/mL Insufficiency: 20 - 29 ng/mL Optimal: > or = 30 ng/mL For 25-OH Vitamin D testing on patients on D2-supplementation and patients for whom quantitation of D2 and D3 fractions is required, the QuestAssureD(TM) 25-OH VIT D, (D2,D3), LC/MS/MS is recommended: order code 19455 (patients >2yrs). See Note 1 Note 1 For additional information, please refer to http://education.Orchestrate/faq/YCJ211 (This link is being provided for informational/ educational purposes only.) ALBUMIN, RANDOM URINE W/CREA TININE (6963) (Not yet reviewed by provider) Interpretation: Performing Lab:Tara MAY BerstMareMrsryu15719 [place], [id number] El Yusuf MD Notes/Report: CREATININE, RANDOM URINE [...] yet reviewed by provider) Interpretation: Performing Lab:YADIRA [facility]found-Iflvtn97478 [place], [id number] El Yusuf MD Notes/Report: PARATHYROID HORMONE, INTACT 77 16-77 pg/mL Interpretive Guide Intact PTH Calcium ------- Normal Parathyroid Normal Normal Hypoparathyroidism Low or Low Normal Low Hyperparathyroidism Primary Normal or High High Secondary High Normal or Low Tertiary High High Non-Parathyroid Hypercalcemia Low or Low Normal High CALCIUM 9.0 8.6-10.3 mg/dL RENAL FUNCTION PANEL (08271) (Not yet reviewed by provider) Interpretation: Performing Lab:DANNIELLE [facility]foundMark [place] [address] [address] [id number] El Yusuf Notes/Report: GLUCOSE 165 65-99 mg/dL [...] rev iewed by provider) Interpretation: Performing Lab:DANNIELLE ProfoundTapPress Eeeoo96055 [address] Hurtado UkkxyybHD[address] [employer] Notes/Report: URIC ACID 5.8 4.0-8.0 mg/dL Therapeutic ta rget for gout patients: <6.0 mg/dL PTH, INTACT AND CALCIUM (883 7) (Not yet reviewed by provider) Interpretation: Performing Lab:YADIRA, Profound-Wqambx46100 [place], [id number] El Yusuf MD Notes/Report: PARATHYROID HORMONE, INTACT 65 16-77 pg/mL Interpretive Guide Intact PTH Calcium ------- Normal Parathyroid Normal Normal Hypoparathyroidism Low or Low Normal Low Hyperparathyroidism Primary Normal or High High Secondary High Normal or Low Tertiary High High Non-Parathyroid Hypercalcemia Low or Low Normal High CALCIUM 9.1 8.6-10.3 mg/dL RENAL FUNCTION PANEL (31715) (Not yet reviewed by provider) Interpretation: Performing Lab:DANNIELLE [facility] [address] [address] KlokopwYN[address] [employer] Notes/Report: GLUCOSE 139 65-99 mg/dL Fasting reference interval For someone without known diabetes, a glucose value >125 mg/dL indicates that they may have diabetes and this should be confirmed with a follow-up test. UREA NITROGEN (BUN) 62 7-25 mg/dL CREATININE 2.17 0.70-1.22 mg/dL EGFR 29 > OR = 60 mL/min/1.73m2 BUN/CREATININE RATIO 29 6-22 (calc) SODIUM 136 135-146 mmol/L POTASSIUM 4.3 3.5-5.3 mmol/L CHLORIDE 97 98-110 mmol/L CARBON DIOXIDE 32 20-32 mmol/L CALCIUM 9.0 8.6-10.3 mg/dL PHOSPHATE ( PHOSPHORUS) 4.6 2.1-4.3 mg/dL ALBUMIN 4.0 3.6-5.1 g/dL MAGNESIUM (622) (Not yet rev iewed by provider) Interpretation: Performing Lab:DANNIELLE [facility]foundLee[facility] Summit HospitalMkaem00660 [address]urtado XwmmiijZP[address] [employer] Notes/Report: MAGNESIUM 2.5 1.5-2.5 mg/dL URIC ACID (905) (Not yet rev iewed by provider) Interpretation: Performing Lab:DANNIELLE, ProfoundMark [place] [address] [address] Hurtado EzddkneRV[address] [place] [address] Notes/Report: URIC ACID 5.7 4.0-8.0 mg/dL Therapeutic ta rget for gout patients: <6.0 mg/dL CBC (INCLUDES DIFF/PLT) (639 9) (Not yet reviewed by provider) Interpretation: Performing Lab:DANNIELLE [facility] [address] [address]urtado OysnbmdBK[address] [employer] Notes/Report: WHITE BLOOD CELL COUNT 9.1 3.8-10.8 Thousand/ uL RED BLOOD CELL COUNT 3.48 4.20-5.80 Million/uL HEMOGLOBIN 11.3 13.2-17.1 g/dL HEMATOCRIT 35.4 38.5-50.0 % MCV 101.7 80.0-100.0 fL MCH 32.5 27.0-33.0 pg MCHC 31.9 32.0-36.0 g/dL For adults, a slight decrease in the calculated MCHC value (in the range of 30 to 32 g/dL) is most likely not clinically significant; however, it should be interpreted with caution in correlation with other red cell parameters and the patient's clinical condition. RDW 13.6 11.0-15.0 % PLATELET COUNT 217 140-400 Thousand/uL MPV 11.0 7.5-12.5 fL ABSOLUTE NEUTROPHILS 7189 4344-3913 cells/uL ABSOLUTE LYMPHOCYTES 765 155-2144 cells/uL ABSOLUTE MONOCYTES 1028 200-950 cells/uL ABSOLUTE EOSINOPHILS 309 15-500 cells/uL ABSOLUTE BASOPHILS 18 0-200 cells/uL NEUTROPHILS 79 LYMPHOCYTES 6.1 MONOCYTES 11.3 EOSINOPHILS 3.4 BASOPHILS 0.2 COPY(IES) SENT TO: (Not yet reviewed by provider) Interpretation: Performing Lab: Notes/Report: COPY(IES) SENT TO: RHONDA LANGLEY MD [address] [facility] [address] [place] [address] [facility] [address] [address] [address] [facility] [address] [place] [address] PROTEIN, TOTAL W/CREAT, RAND OM URINE (9218) (Not yet reviewed by provider) Interpretation: Performing Lab:DANNIELLE [place] [address] [address]urtado [id number] [facility]asha[facility] Centersissy [facility] Paramjit Notes/Report: CREATININE, RANDOM URINE 56 20-320 mg/dL PROTEIN/CREATININE RATIO 89 25-148 mg/g crea t PROTEIN/CREATININE RATIO 0.089 0.025-0 .148 mg/mg creat PROTEIN, TOTAL, RANDOM UR 5 5-25 mg/dL URINALYSIS, COMPLETE W/REFLE X TO CULTURE (3020) (Not yet reviewed by provider) Interpretation: Performing Lab:Tara SPICERLee'S Summit HospitalJsfzu79959 Administration Fatimah Hurtado HqfzosfDG[address] [facility]Win[facility] Memorial Hospitalsissy Yusuf Notes/Report: COLOR YELLOW YELLOW APPEARANCE CLEAR CLEAR SPECIFIC GRAVITY 1.013 1.001-1.035 PH 5.5 5.0-8.0 GLUCOSE NEGATIVE NEGATIVE [...] HYALINE CAST NONE SEEN NONE SEEN /LPF NOTE This urine was analyzed for the presence of WBC, RBC, bacteria, casts, and other formed elements. Only those elements seen were reported. VITAMIN D,25-OH,TOTAL,IA (17 306) (Not yet reviewed by provider) Interpretation: Performing Lab:Tara MAY-Xtgzdp17821 [place], [id number] El Yusuf MD Notes/Report: VITAMIN D,25-OH,TOTAL,IA 55 30-100 ng/mL Vitamin D Status 25-OH Vitamin D: Deficiency: <20 ng/mL Insufficiency: 20 - 29 ng/mL Optimal: > or = 30 ng/mL For 25-OH Vitamin D testing on patients on D2-supplementation and patients for whom quantitation of D2 and D3 fractions is required, the QuestAssureD(TM) 25-OH VIT D, (D2,D3), LC/MS/MS is recommended: order code 33921 (patients >2yrs). See Note 1 Note 1 For additional information, please refer to http://education.Orchestrate/faq/XLS329 (This link is being provided for informational/ educational purposes only.) REFLEXIVE URINE CULTURE (Not yet reviewed by provider) Interpretation: Performing Lab:DANNIELLE ProfoundLee[facility] Summit HospitalAluyc76931 [address]urt[address] TevjcnfML[address] NatashaClif [facility] Vo Notes/Report: REFLEXIVE URINE CULTURE NO C ULTURE INDICATED Reason For Referral No Information Medications Medication SIG (Take, Route, Fr equency, Duration) Notes Start Date End Date Status Lisinopril 10 mg TAKE 1 TABLET DAILY Active Allopurinol 100 mg TAKE 1 TABLET DAILY Active Lisinopril 5 MG 1/2 Orally Once a da y; Duration: 90 days 08/01/2024 Active Problems Problem Type SNOMED Code ICD Code Onset Dates Problem Status W/U Status Risk Notes Problem Iron deficiency anemia (35133803) Iron deficiency anemia, unspecified (D50.9) Active confirmed Problem Anemia (592578941) Anemia, unspecified (D64.9) Active confirmed Problem Hyperglycemia due to type 2 diabetes mellitus (776512172266749) Type 2 diabetes mellitus with hyperglycemia (E11.65) Active confirmed Problem Vitamin D deficiency (62551181) Vitamin D deficiency, unspecified (E55.9) Active confirmed Problem Essential hypertension (36472979) Essential (primary) hypertension (I10) Active confirmed Problem Atherosclerotic heart disease of [place] coronary artery without angina pectoris (340913572831188) Atherosclerotic heart disease of [place] coronary artery without angina pectoris (I25.10) Active confirmed Problem Atrial fibrillation (44319532) Unspecified atrial fibrillation (I48.91) Active confirmed Problem Hypotension (07837958) Hypotension, unspecified (I95.9) Active confirmed Problem Urinary tract infectious disease (disorder) (70884985) Urinary tract infection, site not specified (N39.0) Active confirmed Problem Chronic kidney disease stage 3B (disorder) (823939052) Chronic kidney disease, stage 3b (N18.32) Active confirmed Encounters Encounter Location Date Provider Diagnosis [facility] [address] [place] [address] 08/01/2024 Edilia Mendoza Chronic kidney disease, stage 3b N18.32 ; Hypotension, unspecified I95.9 ; Type 2 diabetes mellitus with hyperglycemia E11.65 and Anemia, unspecified D64.9 [facility] [place] [facility] [address] [place] [address] 12/05/2024 Edilia Mendoza Chronic kidney disease, stage 3b N18.32 ; Type 2 diabetes mellitus with hyperglycemia E11.65 ; Essential (primary) hypertension I10 and Anemia, unspecified D64.9 [facility] [address] [facility] [address] [place] [address] 04/03/2025 Edilia Mendoza Chronic kidney disease, stage 3b N18.32 ; Type 2 diabetes mellitus with hyperglycemia E11.65 and Essential (primary) hypertension I10 [facility] [place] [facility] [address] [place] [address] 05/27/2024 Ediliasary Donaldson [facility] [place] [facility] [address] [place] [address] 08/01/2024 Edilia Donaldson Assessments Encounter Date Diagnosis (ICD Code) Assessment Notes Treatment Notes Treatment Clinical Notes Section Notes 08/01/2024 Chronic kidney disease, stage 3b (ICD-10 - N18.32) 12/05/2024 Chronic kidney disease, stage 3b (ICD-10 - N18.32) 04/03/2025 Chronic kidney disease, stage 3b (ICD-10 - N18.32) 04/03/2025 Type 2 diabetes mellitus with hyperglycemia (ICD-10 - E11.65) 12/05/2024 Type 2 diabetes mellitus with hyperglycemia (ICD-10 - E11.65) 08/01/2024 Hypotension, unspecified (ICD-10 - I95.9) 08/01/2024 Type 2 diabetes mellitus with hyperglycemia (ICD-10 - E11.65) 12/05/2024 Essential (primary) hypertension (ICD-10 - I10) 04/03/2025 Essential (primary) hypertension (ICD-10 - I10) 12/05/2024 Anemia, unspecified (ICD-10 - D64.9) 08/01/2024 Anemia, unspecified (ICD-10 - D64.9) Plan Of Treatment Pending Test Test Name Order Date ALBUMIN, RANDOM URINE W/CREATININE (6517 ) 01/18/2024 ALBUMIN, RANDOM URINE W/CREATININE (6517 ) 03/29/2024 ALBUMIN, RANDOM URINE W/CREATININE (6517 ) 07/26/2024 PTH, INTACT AND CALCIUM (8837) 4 PTH, INTACT AND CALCIUM (8837) 5 PTH, INTACT AND CALCIUM (8837) 4 PTH, INTACT AND CALCIUM (8837) RENAL FUNCTION PANEL (28641) 10/13/2023 RENAL FUNCTION PANEL (94872) 01/18/2024 RENAL FUNCTION PANEL (16856) 03/28/2025 RENAL FUNCTION PANEL (57820) 07/26/2024 RENAL FUNCTION PANEL (26441) 03/29/2024 MAGNESIUM (622) 03/28/2025 MAGNESIUM (622) 10/13/2023 URIC ACID (905) 10/13/2023 URIC ACID (905) 01/18/2024 URIC ACID (905) 03/29/2024 URIC ACID (905) 03/28/2025 URIC ACID (905) 07/26/2024 PROTEIN, TOTAL W/CREAT, RANDOM URINE (17 15) 10/13/2023 PROTEIN, TOTAL W/CREAT, RANDOM URINE (17 15) 03/28/2025 CBC (INCLUDES DIFF/PLT) (6399) 4 CBC (INCLUDES DIFF/PLT) (6399) 4 CBC (INCLUDES DIFF/PLT) (6399) 4 CBC (INCLUDES DIFF/PLT) (6399) 4 CBC (INCLUDES DIFF/PLT) (6399) 5 URINALYSIS, COMPLETE W/REFLEX TO CULTURE (3020) 03/28/2025 URINALYSIS, COMPLETE W/REFLEX TO CULTURE (3020) 03/29/2024 URINALYSIS, COMPLETE W/REFLEX TO CULTURE (3020) 07/26/2024 URINALYSIS, COMPLETE W/REFLEX TO CULTURE (3020) 01/18/2024 URINALYSIS, COMPLETE W/REFLEX TO CULTURE (3020) 10/13/2023 VITAMIN D,25-OH,TOTAL,IA (55336) 024 VITAMIN D,25-OH,TOTAL,IA (19263) 024 VITAMIN D,25-OH,TOTAL,IA (75518) 025 VITAMIN D,25-OH,TOTAL,IA (83548) 024 COPY(IES) SENT TO: 03/28/2025 COPY(IES) SENT TO: 01/18/2024 COPY(IES) SENT TO: 10/13/2023 REFLEXIVE URINE CULTURE 03/28/2025 REFLEXIVE URINE CULTURE 10/13/2023 Next Appt Details Provider Name:Edilia silveira, 07/31/2025 03:15:00 PM, [address], [place], [address],
--- OUTSIDE RECORDS SUMMARY | 2025-05-15 09:17 | XMS_ITS | Encounter Summary ---
Author Organization [facility] Address [address] [place] [address] Care Team Providers Care Truck Technician Name Role Phone Jamal Ramirez MD Primary Care Provider [phone] Encounter Details Date Type Department Care Team (Late st Contact Info) Description 05/15/2025 Orders Only [facility] Oncology and Hematology [facility] [address] [place] [address] Chronic anemia Social History Tobacco [...] Description 05/25/2025 9:45 AM CDT Office Visit [facility] Oncology and Hematology [facility] [address] [place] [address] Anson Brasher MD [address] [facility] [address] [place] [address] documented as of this encounter Visit Diagnoses Diagnosis Chronic anemia Anemia, unspecified documented in this encounter Care Teams Truck Technician Relationship Specialty Start Date End Date Jamal Ramirez MD [address] [facility] [address] [place] [address] PCP - General Internal Medicine 06/24/23 documented as of this encounter
[2025-05-15 09:40] LABS: Cholesterol 87 mg/dL (0-200); HDL Direct 18 mg/dL; Triglycerides 186 mg/dL (<150)
[2025-05-15 13:55] LABS: Hemoglobin A1C 6.5 % (<5.7)
== END 2025-05-15 08:54 | disposition home or self-care (01) ==
PROVIDERS: PCP Internal Medicine; Visit Provider Internal Medicine
DX: E78.00 Pure hypercholesterolemia, unspecified (principal); E11.9 Type 2 diabetes mellitus without complications
CPT/HCPCS: 36415; 80061; 83036

== ENCOUNTER 2025-07-10 10:08 | Outpatient (CLI) | payer MEDICARE, SELFPAY ==
[2025-07-10 11:18] LABS: Add Urine Microscopic? NO; Appearance Urine Clear (Clear); Glucose Urine UA 2+ mg/dL (Negative); Leukocyte Esterase Ur Negative LEU/UL (Negative); Nitrate Urine Negative (Negative); Specific Grav Ur 1.015 (1.001-1.035)
[2025-07-10 11:34] LABS: Albumin Level 4.1 g/dL (3.5-5.1); Anion Gap 9 mmol/L (4-12); Blood Urea Nitrogen 61 mg/dL (9-20); Calcium 9.4 mg/dL (8.4-10.2); Carbon Dioxide 28 mmol/L (22-30); Chloride 102 mmol/L (98-107); Estimated Glomerular Filt Rate 29; Glucose 209 mg/dL (65-110); Potassium 4.3 mmol/L (3.4-5.0); Sodium 139 mmol/L (137-145); Uric Acid 5.5 mg/dL (3.5-8.5)
--- OUTSIDE RECORDS SUMMARY | 2025-07-10 11:45 | XMS_ITS | Data Portability ---
Author Organization [place] - [employer], Main Office Address [address] [place] [address] Care Team Providers Care Project Scheduler Name Role Phone RHONDA RAMIREZ Primary Care Provider RHONDA RAMIREZ Referring Provider [phone] Assessment No assessment recorded. Plan of Treatment Reminders Order Date Submit Date Provider Last Modified By Organization Details Last Modified Time Details Appointments None recorded. Lab lipid panel, serum 2024 025 [facility], [address], [place], [address], 5 12:51:43 HbA1c (hemoglobin A1c), blood 2024 025 [facility], [address], [place], [address], 5 15:46:52 HbA1c (hemoglobin A1c), blood 2024 025 [facility], [place], [address], 5 02:37:43 lipid panel, serum 2024 025 [facility], [place], [address], 5 02:37:37 CMP, serum or plasma 2024 025 [facility], [place], [address], 5 02:37:38 TSH, serum or plasma 2024 025 [facility], [address], [place], [address], 5 02:37:42 T4, free, serum 2024 025 [facility], [address], [place], [address], 5 02:37:41 CBC w/ auto diff 2024 025 [facility], [address], [place], [address], 5 02:37:40 PTH (parathyroi d hormone), intact, serum or plasma 2024 025 [facility], [address], [place], [address], 5 04:06:17 vitamin D, 25-hydroxy, total, serum 2024 025 [facility], [address], [place], [address], 5 04:06:20 phosphorus, serum or plasma 2024 025 [facility], [address], [place], [address], 5 04:06:12 magnesium, serum or plasma 2024 025 [facility], [address], [place], [address], 5 04:06:11 urinalysis complete, reflex culture 2024 025 [facility], [address], [place], [address], 5 04:06:15 lipid panel, serum 2024 025 [facility], [address], [place], [address], 5 04:06:09 CMP, serum or plasma 2024 025 [facility], [address], [place], [address], 5 04:06:13 CBC w/ auto diff 2024 025 [facility], [address], [place], [address], 5 04:06:14 T4, free, serum 2024 025 [facility], [address], [place], [address], 5 04:06:18 TSH, serum or plasma 2024 025 [facility], [address], [place], [address], 5 04:06:19 lipid panel, serum 2023 024 [facility], [address], [place], [address], 4 14:42:27 CMP, serum or plasma 2023 024 [facility], [address], [place], [address], 4 14:42:28 CBC w/ auto diff 2023 024 [facility], [address], [place], [address], 14:42:29 HbA1c (hemoglobin A1c), blood 2023 024 [facility], [address], [place], [address], 14:42:31 Referral None recorded. Procedures None recorded. Surgeries None recorded. Imaging None recorded. Medication Orders None recorded. Patient TargetsNo targets recorded. Patient Instructions Encounter Date Encounter Id Patient Instructions Last Modified By Organization Details Last Modified Time 03/09/2024 [id number] Probable spinal stenosis or other lumbar radiculopathy, [...] lumbar radiculopathy Keep Appointment: Thu 09:40 AM [place] Portions of the record may have been created with voice recognition software. Occasional wrong-word or s ound-a-like substitutions may have occurred due to the inherent limitations of voice recognition software. Read the chart carefully and recognize, using context, where substitutions have occurred. [email or web address] Not available 03/09/2024 17:12:40 05/12/2024 [id number] dementia rating scale-2* [email or web address] Not available 05/12/2024 11:49:49 alcohol misuse* Not available 05/12/2024 11:49:49 depression screening* [email or web address] Not available 05/12/2024 11:49:49 multi-dimensiona l health assessment questionnaire* [email or web address] Not available 05/12/2024 11:49:49 Personalized [facility] Plan and Screening Recommendations Advance Directives - [...] Physical activity: Need more exercise/physical activity Nutrition: Average Eat heart healthy diet Fall Risk (screened today): Low Vaccines Pneumococcal: No further needed Influenza: Your next one in the fall of this year Chronic Disease Risks Stroke: 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, Continue current treatment plan Heart Attack: 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, Continue current treatment plan Clogging of the Arteries: 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, Continue current treatment plan Diabetes: 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, Continue current treatment plan Secondary Prevention/Interven tion (detects treatable diseases before they may cause symptoms, disability, or ) Prostate Cancer Screening: No PSA screening necessary Colon Cancer Screening: Colonoscopy No screening necessary Date Screening Last Performed: __2012 Eye Disease Screening: Your next exam in: goes yearly Dementia Risk: Low I have no recommendations Depression Screening: Negative I have no recommendations [email or web address] Not available 05/12/2024 11:24:10 Medicare wellnes s evaluation risk assessment stable. Follow-up for [...] with voice recognition software. Occasional wrong-word or s ound-a-like substitutions may have occurred due to the inherent limitations of voice recognition software. Read the chart carefully and recognize, using context, where substitutions have occurred. [email or web address] Not available 05/12/2024 11:42:48 09/15/2024 [id number] Follow-up hypertension, persistent atrial fibrillation, hyperlipidemia, type [...] with voice recognition software. Occasional wrong-word or s ound-a-like substitutions may have occurred due to the inherent limitations of voice recognition software. Read the chart carefully and recognize, using context, where substitutions may have occurred. Created: Rhonda Ramirez M.D. 09.15.2024 10:59 AM [email or web address] Not available 09/15/2024 11:59:23 01/12/2025 [id number] Follow-up for essential hypertension, paroxysmal atrial fibrillation, chronic kidney disease and hyperlipidemia along with type 2 diabetes. Will continue on current Rx check blood work in the form of a CBC, CMP, lipid and hemoglobin A1c. Does feel somewhat still puny because of recent COVID. But overall is doing reasonably well. And does not have much in the way of any residual cough congestion or any other cardiopulmonary symptoms. Continue on current Rx follow-up in four months Follow Up: 4 Months Approximate Date: 05/12/2025 Portions of record are template driven. When necessary additional context will be provided. Additionally some portions have been created with voice recognition software. Occasional wrong-word or s ound-a-like substitutions may have occurred due to the inherent limitations of voice recognition software. Read the chart carefully and recognize, using context, where substitutions may have occurred. Created: Rhonda Ramirez M.D. 01.12.2025 11:21 AM [email or web address] Not available 01/12/2025 12:21:06 05/11/2025 [id number] Follow-up hypertension, paroxysmal and persistent atrial fibrillation, hyperlipidemia type 2 diabetes all chronically stable. Is scheduled to get some other blood work done in the next week or so with regards to his anemia. Will have a blood hemoglobin A1c and lipid panel performed. He is otherwise clinically stable. The anemia is most likely secondary to underlying chronic renal dysfunction. Follow Up: 4 Months Approximate Date: 09/08/2025 Portions of record are template driven. When necessary additional context will be provided. Additionally some portions have been created with voice recognition software. Occasional wrong-word or s ound-a-like substitutions may have occurred due to the inherent limitations of voice recognition software. Read the chart carefully and recognize, using context, where substitutions may have occurred. Created: Rhonda Ramirez M.D. 05.11.2025 10:53 AM [email or web address] Not available 05/11/2025 11:53:08 Reason for Referral None Reported. Results Created Date Observation Date Name Description Value Unit Range Abnormal Flag Note LastModifiedBy Organization Detail LastModifiedTime 05/18/20 24 05/22/2024 LIPID PANEL W/REF L DIREC T LDL, CARDI O IQ(R) cholesterol, total 92 mg/dL <200 Not Available [facility] [address] [address] [place], [address], 05/22/2024 14:42:27 05/18/2005/22/2024 LIPID PANEL W/REF L DIREC T LDL, CARDI O IQ(R) HDL cholesterol 24 mg/dL >39 low Not Available [facility] [address] [place], [address], 05/22/2024 14:42:27 05/18/2005/22/2024 LIPID PANEL W/REF L DIREC T LDL, CARDI O IQ(R) triglyceride s 143 mg/dL <150 Not Available [facility] [address] [address] [place], [address], 05/22/2024 14:42:27 05/18/2005/22/2024 LIPID PANEL W/REF L DIREC T LDL, CARDI O IQ(R) LDL-choleste rol 45 mg/dL _(luis enrique c) <100 Salud able range <100 mg/dL for prima ry preve ntion ; <70 mg/dL for patie nts with CHD or diabe tic patie nts with >= 2 CHD risk facto rs. LDL-C is now calcu lated using the [facility] calcu latio n, which is a valid ated novel metho d provi ding juana r accur acy than the Fried douglas equat ion in the estim ation of LDL-C . Jessica VILLANUEVA et al. MONTSERRAT. 2013; 310(1 9): 2061- 2068 (http ://ed maribelati on.Qu Yo Joinnus. com/f aq/FA Q164) LDL-C is now calcu lated using the [facility] calcu latio n, which is a valid ated novel metho d provi ding juana r accur acy than the Fried douglas equat ion in the estim ation of LDL-C . Jessica n SS et al. MONTSERRTA. 2013; 310(1 9): 2061- 2068 (http ://ed maribelati on.Tessa Ram cheryljoan StepUp. com/f aq/FA Q164) Not Available [address] [address] [place], [address], 05/22/2024 14:42:27 05/18/2005/22/2024 LIPID PANEL W/REF L DIREC T LDL, CARDI O IQ(R) chol/HDLC ratio 3.8 calc <5.0 Not Available [address] [address] [facility] [place], [address], 05/22/2024 14:42:27 05/18/20 24 05/22/2024 LIPID PANEL [...] thera peuti c optio n. Not Available [facility] [address] [address] , [place], [address], 05/22/2024 14:42:27 05/18/2005/22/2024 LIPID PANEL W/REF L DIREC T LDL, CARDI O IQ(R) copy(ies) sent to: [facility] [id number] [place] [address] [address] [place] [address] Not Available [facility] [address] [address] [place], [address], 05/22/2024 14:42:27 05/18/2005/22/2024 COMPR EHENS MILDRED METAB OLIC PANEL glucose 138 mg/dL 65-99 high Fasti ng refer ence inter andres For someo ne witho ut known diabe elisa, a gluco se value >125 mg/dL indic ates that they may have diabe elisa and this shoul d be confi rmed with a follo w-up test. Not Available [address], [address], 05/22/2024 14:42:28 05/18/2005/22/2024 COMPR EHENS MILDRED METAB OLIC PANEL urea nitrogen (BUN) 73 mg/dL 7-25 high Not Available [address], [address], 05/22/2024 14:42:28 05/18/20 24 05/22/2024 COMPR EHENS MILDRED METAB OLIC PANEL creatinine 2.59 mg/dL 0.70-1 .22 high Not Available [address], [address], 05/22/2024 14:42:28 05/18/20 24 05/22/2024 COMPR EHENS MILDRED METAB OLIC PANEL eGFR 23 mL/mi n/1.7 3m2 > or = 60 low Not Available [address], [address], 05/22/2024 14:42:28 05/18/20 24 05/22/2024 COMPR EHENS MILDRED METAB OLIC PANEL BUN/creatini ne ratio 28 (calc ) 6-22 high Not Available [address], [address], 05/22/2024 14:42:28 05/18/20 24 05/22/2024 COMPR EHENS MILDRED METAB OLIC PANEL sodium 137 mmol/ L 135-14 6 normal Not Available [address], [address], 05/22/2024 14:42:28 05/18/2005/22/2024 COMPR EHENS MILDRED METAB OLIC PANEL potassium 4.4 mmol/ L 3.5-5. 3 normal Not Available [address], [address], 05/22/2024 14:42:28 05/18/2005/22/2024 COMPR EHENS MILDRED METAB OLIC PANEL chloride 97 mmol/ L 98-110 low Not Available [address], [address], 05/22/2024 14:42:28 05/18/2005/22/2024 COMPR EHENS MILDRED METAB OLIC PANEL carbon dioxide 30 mmol/ L 20-32 normal Not Available [address], [address], 05/22/2024 14:42:28 05/18/20 24 05/22/2024 COMPR EHENS MILDRED METAB OLIC PANEL calcium 8.9 mg/dL 8.6-10 .3 normal Not Available [address], [address], 05/22/2024 14:42:28 05/18/2005/22/2024 COMPR EHENS MILDRED METAB OLIC PANEL protein, total 6.2 g/dL 6.1-8. 1 normal Not Available [address], [address], 05/22/2024 14:42:28 05/18/2005/22/2024 COMPR EHENS MILDRED METAB OLIC PANEL albumin 3.8 g/dL 3.6-5. 1 normal Not Available [address], [address], 05/22/2024 14:42:28 05/18/20 05/22/2024 COMPR EHENS MILDRED METAB OLIC PANEL globulin 2.4 g/dL_ (calc ) 1.9-3. 7 normal Not Available [address], [address], 05/22/2024 14:42:28 05/18/20 24 05/22/2024 COMPR EHENS MILDRED METAB OLIC PANEL albumin/glob ulin ratio 1.6 (calc ) 1.0-2. 5 normal Not Available [address], [address], 05/22/2024 14:42:28 05/18/2005/22/2024 COMPR EHENS MILDRED METAB OLIC PANEL bilirubin, total 0.5 mg/dL 0.2-1. 2 normal Not Available [address], [address], 05/22/2024 14:42:28 05/18/20 24 05/22/2024 COMPR EHENS MILDRED METAB OLIC PANEL alkaline phosphatase 71 U/L 35-144 normal Not Available [address], [address], 05/22/2024 14:42:28 05/18/20 24 05/22/2024 COMPR EHENS MILDRED METAB OLIC PANEL AST 26 U/L 10-35 normal Not Available [address], [address], 05/22/2024 14:42:28 05/18/20 24 05/22/2024 COMPR EHENS MILDRED METAB OLIC PANEL ALT 18 U/L 9-46 normal Not Available [address], [address], 05/22/2024 14:42:28 05/18/20 24 05/22/2024 COMPR EHENS MILDRED METAB OLIC PANEL copy(ies) sent to: [facility] [id number] [address] [address] [place] [address] Not Available [address], [address], 05/22/2024 14:42:28 05/18/20 24 05/22/2024 CBC (INCL UDES DIFF/ PLT) white blood cell count 6.8 thous and/u L 3.8-10 .8 normal Not Available [address], [address], 05/22/2024 14:42:29 05/18/2005/22/2024 CBC (INCL UDES DIFF/ PLT) red blood cell count 2.94 amanda on/uL 4.20-5 .80 low Not Available [address], [address], 05/22/2024 14:42:29 05/18/20 24 05/22/2024 CBC (INCL UDES DIFF/ PLT) hemoglobin 9.4 g/dL 13.2-1 7.1 low Not Available [address], [address], 05/22/2024 14:42:29 05/18/20 24 05/22/2024 CBC (INCL UDES DIFF/ PLT) hematocrit 30.3 % 38.5-5 0.0 low Not Available [address], [address], 05/22/2024 14:42:29 05/18/20 24 05/22/2024 CBC (INCL UDES DIFF/ PLT) MCV 103.1 fL 80.0-1 00.0 high Not Available [address], [address], 05/22/2024 14:42:29 05/18/20 24 05/22/2024 CBC (INCL UDES DIFF/ PLT) MCH 32.0 pg 27.0-3 3.0 normal Not Available [address], [address], 05/22/2024 14:42:29 05/18/20 24 05/22/2024 CBC (INCL UDES DIFF/ PLT) MCHC 31.0 g/dL 32.0-3 6.0 low For adult s, a sligh t decre ase in the calcu lated MCHC value (in the range of 30 to 32 g/dL) is most likel y not clini harriet signi fican t; cesarev er, it shoul d be inter prete d with cauti on in corre latio n with other red cell glen eters and the patie nt's clini luis enrique condi tion. Not Available [address], [address], 05/22/2024 14:42:29 05/18/20 24 05/22/2024 CBC (INCL UDES DIFF/ PLT) RDW 14.5 % 11.0-1 5.0 normal Not Available [address], [address], 05/22/2024 14:42:29 05/18/20 24 05/22/2024 CBC (INCL UDES DIFF/ PLT) platelet count 218 thous and/u L 140-40 0 normal Not Available [address], [address], 05/22/2024 14:42:29 05/18/20 24 05/22/2024 CBC (INCL UDES DIFF/ PLT) MPV 10.9 fL 7.5-12 .5 normal Not Available [address], [address], 05/22/2024 14:42:29 05/18/20 24 05/22/2024 CBC (INCL UDES DIFF/ PLT) absolute neutrophils 5236 cells /uL 1500-7 800 normal Not Available [address], [address], 05/22/2024 14:42:29 05/18/2005/22/2024 CBC (INCL UDES DIFF/ PLT) absolute lymphocytes 551 cells /uL 850-39 00 low Not Available [address], [address], 05/22/2024 14:42:29 05/18/2005/22/2024 CBC (INCL UDES DIFF/ PLT) absolute monocytes 741 cells /uL 200-95 0 normal Not Available [facility] [address], [address], 05/22/2024 14:42:29 05/18/2005/22/2024 CBC (INCL UDES DIFF/ PLT) absolute eosinophils 252 cells /uL 15-500 normal Not Available [facility] [address], [address], 05/22/2024 14:42:29 05/18/2005/22/2024 CBC (INCL UDES DIFF/ PLT) absolute basophils 20 cells /uL 0-200 normal Not Available [address], [address], 05/22/2024 14:42:29 05/18/20 24 05/22/2024 CBC (INCL UDES DIFF/ PLT) neutrophils 77 % normal Not Available [address], [address], 05/22/2024 14:42:29 05/18/2005/22/2024 CBC (INCL UDES DIFF/ PLT) lymphocytes 8.1 % normal Not Available [address], [address], 05/22/2024 14:42:29 05/18/20 24 05/22/2024 CBC (INCL UDES DIFF/ PLT) monocytes 10.9 % normal Not Available [facility] [address] [place], [address], 05/22/2024 14:42:29 05/18/20 24 05/22/2024 CBC (INCL UDES DIFF/ PLT) eosinophils 3.7 % normal Not Available [facility] [address] [place], [address], 05/22/2024 14:42:29 05/18/20 24 05/22/2024 CBC (INCL UDES DIFF/ PLT) basophils 0.3 % normal Not Available [address] , [place], [address], 05/22/2024 14:42:29 05/18/2005/22/2024 CBC (INCL UDES DIFF/ PLT) copy(ies) sent to: [facility] [address] [address] [facility] [address] [place] [address] [address] [address] [facility] [address] [place] [address] Not Available [address], [place], [address], 05/22/2024 14:42:29 05/18/2005/22/2024 HEMOG LOBIN A1C hemoglobin A1C 6.5 %_of_ [...] diabe elisa for child ayanna. Not Available [address] [address] [place], [address], 05/22/2024 14:42:30 05/18/20 24 05/22/2024 HEMOG LOBIN A1C copy(ies) sent to: [facility] [address] [address] [facility] [address] [place] [address] [address] [address] [facility] [address] [place] [address] Not Available [address], [address], 05/22/2024 14:42:30 09/16/19 25 09/17/2024 LIPID PANEL , STAND CRISTAL cholesterol, total 95 mg/dL <200 normal Not Available [address], [address], 09/17/2024 04:06:09 09/16/19 25 09/17/2024 LIPID PANEL , STAND CRISTAL HDL cholesterol 27 mg/dL > or = 40 low Not Available [address], [address], 09/17/2024 04:06:09 09/16/19 25 09/17/2024 LIPID PANEL , STAND CRISTAL triglyceride s 130 mg/dL <150 normal Not Available [address], [address], 09/17/2024 04:06:09 09/16/19 25 09/17/2024 LIPID PANEL [...] lated using the Jessica n-Hop kins calcu latio n, which is a valid ated novel metho d provi karsten arias r accur acy than the Fried douglas equat ion in the estim ation of LDL-C . Jessica n SS et al. MONTSERRAT. 2013; 310(1 9): 2061- 2068 (http ://ed ucati on.Tessa lunaWegoWise. com/f aq/FA Q164) Not Available [address], [address], 09/17/2024 04:06:09 09/16/1909/17/2024 LIPID PANEL , STAND CRISTAL chol/HDLC ratio 3.5 (calc ) <5.0 normal Not Available [facility] [address], [address], 09/17/2024 04:06:09 09/16/1909/17/2024 LIPID PANEL , STAND CRISTAL non HDL cholesterol 68 mg/dL _(luis enrique c) <130 normal For patie nts with diabe elisa plus 1 major ASCVD risk facto r, treat ing to a non-H DL-C goal of <100 mg/dL (LDL- C of <70 mg/dL ) is consi dered a thera peuti c optio n. Not Available [address], [address], 09/17/2024 04:06:09 09/16/1909/17/2024 MAGNE SIUM magnesium 2.1 mg/dL 1.5-2. 5 normal Not Available [address], [address], 09/17/2024 04:06:11 09/16/19 25 09/17/2024 PHOSP HATE ( PHOSP HORUS ) phosphate ( phosphorus) 4.0 mg/dL 2.1-4. 3 normal Not Available [address], [address], 09/17/2024 04:06:12 09/16/19 25 09/17/2024 COMPR EHENS MILDRED METAB OLIC PANEL , PLASM A glucose 152 mg/dL 65-99 high Fasti ng refer ence inter andres For someo ne witho ut known diabe elisa, a gluco se value >125 mg/dL indic ates that they may have diabe elisa and this shoul d be confi rmed with a follo w-up test. Not Available [address], [address], 09/17/2024 04:06:13 09/16/1909/17/2024 COMPR EHENS MILDRED METAB OLIC PANEL , PLASM A urea nitrogen (BUN) 43 mg/dL 7-25 high Not Available [facility] [address], [address], 09/17/2024 04:06:13 09/16/19 25 09/17/2024 COMPR EHENS MILDRED METAB OLIC PANEL , PLASM A creatinine 1.94 mg/dL 0.70-1 .22 high Not Available [address], [address], 09/17/2024 04:06:13 09/16/19 25 09/17/2024 COMPR EHENS MILDRED METAB OLIC PANEL , PLASM A eGFR 33 mL/mi n/1.7 3m2 > or = 60 low Not Available [address], [address], 09/17/2024 04:06:13 09/16/1909/17/2024 COMPR EHENS MILDRED METAB OLIC PANEL , PLASM A BUN/creatini ne ratio 22 (calc ) 6-22 normal Not Available [address], [address], 09/17/2024 04:06:13 09/16/19 25 09/17/2024 COMPR EHENS MILDRED METAB OLIC PANEL , PLASM A sodium 141 mmol/ L 135-14 6 normal Not Available [facility] [address], [address], 09/17/2024 04:06:13 09/16/1909/17/2024 COMPR EHENS MILDRED METAB OLIC PANEL , PLASM A potassium 3.7 mmol/ L 3.4-4. 8 normal Not Available [address], [address], 09/17/2024 04:06:13 09/16/19 25 09/17/2024 COMPR EHENS MILDRED METAB OLIC PANEL , PLASM A chloride 105 mmol/ L 98-110 normal Not Available [address], [address], 09/17/2024 04:06:13 09/16/19 25 09/17/2024 COMPR EHENS MILDRED METAB OLIC PANEL , PLASM A carbon dioxide 27 mmol/ L 20-32 normal Not Available [address], [address], 09/17/2024 04:06:13 09/16/19 25 09/17/2024 COMPR EHENS MILDRED METAB OLIC PANEL , PLASM A calcium 8.9 mg/dL 8.6-10 .3 normal Not Available [address], [address], 09/17/2024 04:06:13 09/16/19 25 09/17/2024 COMPR EHENS MILDRED METAB OLIC PANEL , PLASM A protein, total 6.7 g/dL 6.4-8. 4 normal Not Available [address], [address], 09/17/2024 04:06:13 09/16/1909/17/2024 COMPR EHENS MILDRED METAB OLIC PANEL , PLASM A albumin 4.0 g/dL 3.6-5. 1 normal Not Available [address], [address], 09/17/2024 04:06:13 09/16/19 25 09/17/2024 COMPR EHENS MILDRED METAB OLIC PANEL , PLASM A globulin 2.7 g/dL_ (calc ) 2.2-4. 0 normal Not Available [address], [address], 09/17/2024 04:06:13 09/16/19 25 09/17/2024 COMPR EHENS MILDRED METAB OLIC PANEL , PLASM A albumin/glob ulin ratio 1.5 (calc ) 0.9-2. 3 normal Not Available [address], [address], 09/17/2024 04:06:13 09/16/19 25 09/17/2024 COMPR EHENS MILDRED METAB OLIC PANEL , PLASM A bilirubin, total 0.6 mg/dL 0.2-1. 2 normal Not Available [address], [address], 09/17/2024 04:06:13 09/16/19 25 09/17/2024 COMPR EHENS MILDRED METAB OLIC PANEL , PLASM A alkaline phosphatase 73 U/L 35-144 normal Not Available [address], [address], 09/17/2024 04:06:13 09/16/19 25 09/17/2024 COMPR EHENS MILDRED METAB OLIC PANEL , PLASM A AST 23 U/L 10-35 normal Not Available [address], [address], 09/17/2024 04:06:13 09/16/19 25 09/17/2024 COMPR EHENS MILDRED METAB OLIC PANEL , PLASM A ALT 18 U/L 9-46 normal Not Available [address], [address], 09/17/2024 04:06:13 09/16/19 25 09/17/2024 CBC (INCL UDES DIFF/ PLT) white blood cell count 7.8 thous and/u L 3.8-10 .8 normal Not Available [address], [address], 09/17/2024 04:06:14 09/16/1909/17/2024 CBC (INCL UDES DIFF/ PLT) red blood cell count 3.40 amanda on/uL 4.20-5 .80 low Not Available [address], [address], 09/17/2024 04:06:14 09/16/1909/17/2024 CBC (INCL UDES DIFF/ PLT) hemoglobin 11.1 g/dL 13.2-1 7.1 low Not Available [address], [address], 09/17/2024 04:06:14 09/16/1909/17/2024 CBC (INCL UDES DIFF/ PLT) hematocrit 34.2 % 38.5-5 0.0 low Not Available [address], [address], 09/17/2024 04:06:14 09/16/1909/17/2024 CBC (INCL UDES DIFF/ PLT) MCV 100.6 fL 80.0-1 00.0 high Not Available [address], [address], 09/17/2024 04:06:14 09/16/19 25 09/17/2024 CBC (INCL UDES DIFF/ PLT) MCH 32.6 pg 27.0-3 3.0 normal Not Available [facility] [facility] [address], [address], 09/17/2024 04:06:14 09/16/19 25 09/17/2024 CBC (INCL UDES DIFF/ PLT) MCHC 32.5 [...] clini luis enrique condi tion. Not Available [address], [address], 09/17/2024 04:06:14 09/16/19 25 09/17/2024 CBC (INCL UDES DIFF/ PLT) RDW 13.4 % 11.0-1 5.0 normal Not Available [facility] [address], [address], 09/17/2024 04:06:14 09/16/19 25 09/17/2024 CBC (INCL UDES DIFF/ PLT) platelet count 227 thous and/u L 140-40 0 normal Not Available [address], [address], 09/17/2024 04:06:14 09/16/19 25 09/17/2024 CBC (INCL UDES DIFF/ PLT) MPV 10.7 fL 7.5-12 .5 normal Not Available [address], [address], 09/17/2024 04:06:14 09/16/19 25 09/17/2024 CBC (INCL UDES DIFF/ PLT) absolute neutrophils 6232 cells /uL 1500-7 800 normal Not Available [address], [address], 09/17/2024 04:06:14 09/16/19 25 09/17/2024 CBC (INCL UDES DIFF/ PLT) absolute lymphocytes 343 cells /uL 850-39 00 low Not Available [address], [address], 09/17/2024 04:06:14 09/16/19 25 09/17/2024 CBC (INCL UDES DIFF/ PLT) absolute monocytes 881 cells /uL 200-95 0 normal Not Available [address], [address], 09/17/2024 04:06:14 09/16/19 25 09/17/2024 CBC (INCL UDES DIFF/ PLT) absolute eosinophils 304 cells /uL 15-500 normal Not Available [address], [address], 09/17/2024 04:06:14 09/16/19 25 09/17/2024 CBC (INCL UDES DIFF/ PLT) absolute basophils 39 cells /uL 0-200 normal Not Available [address], [address], 09/17/2024 04:06:14 09/16/19 25 09/17/2024 CBC (INCL UDES DIFF/ PLT) neutrophils 79.9 % normal Not Available [address], [address], 09/17/2024 04:06:14 09/16/19 25 09/17/2024 CBC (INCL UDES DIFF/ PLT) lymphocytes 4.4 % normal Not Available [address], [address], 09/17/2024 04:06:14 09/16/19 25 09/17/2024 CBC (INCL UDES DIFF/ PLT) monocytes 11.3 % normal Not Available [address], [address], 09/17/2024 04:06:14 09/16/19 25 09/17/2024 CBC (INCL UDES DIFF/ PLT) eosinophils 3.9 % normal Not Available [address], [address], 09/17/2024 04:06:14 09/16/19 25 09/17/2024 CBC (INCL UDES DIFF/ PLT) basophils 0.5 % normal Not Available [address], [address], 09/17/2024 04:06:14 09/16/19 25 09/17/2024 URINA LYSIS , COMPL ETE W/REF PABLO TO CULTU RE color YELLOW yellow normal Not Available [address], [address], 09/17/2024 04:06:15 09/16/19 25 09/17/2024 URINA LYSIS , COMPL ETE W/REF PABLO TO CULTU RE appearance CLEAR clear normal Not Available [address], [address], 09/17/2024 04:06:15 09/16/19 25 09/17/2024 URINA LYSIS , COMPL ETE W/REF PABLO TO CULTU RE specific gravity 1.015 1.001- 1.035 normal Not Available [address], [address], 09/17/2024 04:06:15 09/16/19 25 09/17/2024 URINA LYSIS , COMPL ETE W/REF PABLO TO CULTU RE pH < OR = 5.0 5.0-8. 0 normal Not Available [address], [address], 09/17/2024 04:06:15 09/16/19 25 09/17/2024 URINA LYSIS , COMPL ETE W/REF PABLO TO CULTU RE glucose 1+ negati ve abnormal Not Available [address], [address], 09/17/2024 04:06:15 09/16/19 25 09/17/2024 URINA LYSIS , COMPL ETE W/REF PABLO TO CULTU RE bilirubin NEGATI VE negati ve normal Not Available [address], [address], 09/17/2024 04:06:15 09/16/19 25 09/17/2024 URINA LYSIS , COMPL ETE W/REF PABLO TO CULTU RE ketones NEGATI VE negati ve normal Not Available [address], [address], 09/17/2024 04:06:15 09/16/19 25 09/17/2024 URINA LYSIS , COMPL ETE W/REF PABLO TO CULTU RE occult blood NEGATI VE negati ve normal Not Available [address], [address], 09/17/2024 04:06:15 09/16/19 25 09/17/2024 URINA LYSIS , COMPL ETE W/REF PABLO TO CULTU RE protein NEGATI VE negati ve normal Not Available [address], [address], 09/17/2024 04:06:15 09/16/19 25 09/17/2024 URINA LYSIS , COMPL ETE W/REF PABLO TO CULTU RE nitrite NEGATI VE negati ve normal Not Available [address], [address], 09/17/2024 04:06:15 09/16/19 25 09/17/2024 URINA LYSIS , COMPL ETE W/REF PABLO TO CULTU RE leukocyte esterase NEGATI VE negati ve normal Not Available [address], [address], 09/17/2024 04:06:15 09/16/19 25 09/17/2024 URINA LYSIS , COMPL ETE W/REF PABLO TO CULTU RE WBC NONE SEEN /hpf < or = 5 normal Not Available [address], [address], 09/17/2024 04:06:15 09/16/19 25 09/17/2024 URINA LYSIS , COMPL ETE W/REF PABLO TO CULTU RE RBC NONE SEEN /hpf < or = 2 normal Not Available [address], [address], 09/17/2024 04:06:15 09/16/19 25 09/17/2024 URINA LYSIS , COMPL ETE W/REF PABLO TO CULTU RE squamous epithelial cells NONE SEEN /hpf < or = 5 normal Not Available [address], [address], 09/17/2024 04:06:15 09/16/19 25 09/17/2024 URINA LYSIS , COMPL ETE W/REF PABLO TO CULTU RE bacteria NONE SEEN /hpf none seen normal Not Available [address], [address], 09/17/2024 04:06:15 09/16/19 25 09/17/2024 URINA LYSIS , COMPL ETE W/REF PABLO TO CULTU RE hyaline cast 0-5 /lpf none seen abnormal Not Available [address], [address], 09/17/2024 04:06:15 09/16/19 25 09/17/2024 URINA LYSIS , COMPL ETE W/REF PABLO TO CULTU RE note This urine was sylvie zed for the prese nce of WBC, RBC, bacte vi, casts , and other forme d eleme nts. Only those eleme nts seen were repor wade. Not Available [address], [address], 09/17/2024 04:06:15 09/16/1909/17/2024 REFLE XIVE URINE CULTU RE reflexive urine culture NO CULTU RE INDIC ATED Not Available [address], [address], 09/17/2024 04:06:17 09/16/19 25 09/17/2024 PTH, INTAC [...] or Low Nahomy l High Not Available [facility] [address] [address] [place], [address], 09/17/2024 04:06:17 09/16/19 25 09/17/2024 T4, FREE T4, free 1.2 NG/dL 0.8-1. 8 normal Not Available [facility] [address], [address], 09/17/2024 04:06:18 09/16/19 25 09/17/2024 TSH TSH 1.84 mIU/L 0.40-4 .50 normal Not Available [facility] [address], [address], 09/17/2024 04:06:19 09/16/1909/21/2024 VITAM IN D,25- [place],TO [...] is recom jose c d: order code 83021 (vasyl ents >2yrs ). See Note 1 Note 1 For addit ional infor yanique irwin e refer to http: //[facility] nwaaf brock.Mike baker ics.c om/fa q/FAQ 199 (This link is being provi ded for infor shannan cruz/ educa cyndi l purpo ses only. ) Not Available [facility] [address] , [place], [address], 09/22/2024 00:13:36 09/16/1909/21/2024 HEMOG LOBIN A1C hemoglobin A1C 6.8 %_of_ [...] Curre ntly, no conse nsus exist s isac shelley use of hemog lobin A1c for diagn osis of diabe elisa for child ayanna. Your reque st to have a SalesWarp ramona copy faxed has been lorna zepeda ed. Queue d to: [phone] Queue d to: [phone] A InHiroli ramona repor t has been faxed to the [facility]: Faxed to: [phone] 2 on: 09/19 09:[address] [facility] [address], [place], [address], 09/22/2024 00:13:38 01/14/2001/13/2025 LIPID PANEL , STAND CRISTAL cholesterol, total 99 mg/dL <200 normal Not Available [facility] [address] [address] [place], [address], 01/14/2025 02:37:37 01/14/2001/13/2025 LIPID PANEL , STAND CRISTAL HDL cholesterol 25 mg/dL > or = 40 low Not Available [facility] [address] [place], [address], 01/14/2025 02:37:37 01/14/2001/13/2025 LIPID PANEL , STAND CRISTAL triglyceride s 149 mg/dL <150 normal Not Available [facility] [address] [address] [place], [address], 01/14/2025 02:37:37 01/14/20 25 01/13/2025 LIPID PANEL , STAND CRISTAL LDL-choleste rol 51 mg/dL _(luis enrique c) normal Refer ence range : <100 Salud able range <100 mg/dL for prima ry preve ntion ; <70 mg/dL for patie nts with CHD or diabe tic patie nts with > or = 2 CHD risk facto rs. LDL-C is now calcu lated using the Jessica brock-Hop kristin wilson n, which is a valid ated novel jaz johnson accur acy than the Fried douglas equat ion in the estim ation of LDL-C . Jessica brock SS et al. MONTSERRAT. 2013; 310(1 9): 2061- 2068 (http ://ed ucati on.Qu Yo murdocks. com/f aq/FA Q164) Not Available [facility] [address] [place], [address], 01/14/2025 02:37:37 01/14/2001/13/2025 LIPID PANEL , STAND CRISTAL chol/HDLC ratio 4.0 (calc ) <5.0 normal Not Available [facility] [address] [place], [address], 01/14/2025 02:37:37 01/14/2001/13/2025 LIPID PANEL , STAND CRISTAL non HDL cholesterol 74 mg/dL _(luis enrique c) <130 normal For patie nts with diabe elisa plus 1 major ASCVD risk facto r, treat ing to a non-H DL-C goal of <100 mg/dL (LDL- C of <70 mg/dL ) is consi dered a thera peuti c optio n. Not Available [facility] [address] [place], [address], 01/14/2025 02:37:37 01/14/20 25 01/13/2025 LIPID PANEL , STAND CRISTAL copy(ies) sent to: DR.CH SARGENT [address] [place] [address] Not Available [facility] [address] [address] [place], [address], 01/14/2025 02:37:37 01/14/2001/13/2025 COMPR EHENS MILDRED METAB OLIC PANEL , PLASM A glucose 123 mg/dL 65-99 high Fasti ng refer ence inter andres For someo ne witho ut known diabe elisa, a gluco se value betwe en 100 and 125 mg/dL is consi stent with predi abete s and shoul d be confi rmed with a follo w-up test. Not Available [facility] [address] [address] [place], [address], 01/14/2025 02:37:38 01/14/2001/13/2025 COMPR EHENS MILDRED METAB OLIC PANEL , PLASM A urea nitrogen (BUN) 48 mg/dL 7-25 high Not Available [facility] [address], [address], 01/14/2025 02:37:38 01/14/20 25 01/13/2025 COMPR EHENS MILDRED METAB OLIC PANEL , PLASM A creatinine 1.98 mg/dL 0.70-1 .22 high Not Available [facility] [address] [place], [address], 01/14/2025 02:37:38 01/14/20 25 01/13/2025 COMPR EHENS MILDRED METAB OLIC PANEL , PLASM A eGFR 32 mL/mi n/1.7 3m2 > or = 60 low Not Available [address], [address], 01/14/2025 02:37:38 01/14/20 25 01/13/2025 COMPR EHENS MILDRED METAB OLIC PANEL , PLASM A BUN/creatini ne ratio 24 (calc ) 6-22 high Not Available [address], [address], 01/14/2025 02:37:38 01/14/20 25 01/13/2025 COMPR EHENS MILDRED METAB OLIC PANEL , PLASM A sodium 138 mmol/ L 135-14 6 normal Not Available [address], [address], 01/14/2025 02:37:38 01/14/20 25 01/13/2025 COMPR EHENS MILDRED METAB OLIC PANEL , PLASM A potassium 4.0 mmol/ L 3.4-4. 8 normal Not Available [address], [address], 01/14/2025 02:37:38 01/14/20 25 01/13/2025 COMPR EHENS MILDRED METAB OLIC PANEL , PLASM A chloride 102 mmol/ L 98-110 normal Not Available [address], [address], 01/14/2025 02:37:38 01/14/20 25 01/13/2025 COMPR EHENS MILDRED METAB OLIC PANEL , PLASM A carbon dioxide 27 mmol/ L 20-32 normal Not Available [address], [address], 01/14/2025 02:37:38 01/14/20 25 01/13/2025 COMPR EHENS MILDRED METAB OLIC PANEL , PLASM A calcium 8.7 mg/dL 8.6-10 .3 normal Not Available [facility] [address], [address], 01/14/2025 02:37:38 01/14/20 25 01/13/2025 COMPR EHENS MILDRED METAB OLIC PANEL , PLASM A protein, total 6.0 g/dL 6.4-8. 4 low Not Available [address], [address], 01/14/2025 02:37:38 01/14/20 25 01/13/2025 COMPR EHENS MILDRED METAB OLIC PANEL , PLASM A albumin 3.6 g/dL 3.6-5. 1 normal Not Available [address], [address], 01/14/2025 02:37:38 01/14/20 25 01/13/2025 COMPR EHENS MILDRED METAB OLIC PANEL , PLASM A globulin 2.4 g/dL_ (calc ) 2.2-4. 0 normal Not Available [facility] [address], [address], 01/14/2025 02:37:38 01/14/20 25 01/13/2025 COMPR EHENS MILDRED METAB OLIC PANEL , PLASM A albumin/glob ulin ratio 1.5 (calc ) 0.9-2. 3 normal Not Available [facility] [address], [address], 01/14/2025 02:37:38 01/14/20 25 01/13/2025 COMPR EHENS MILDRED METAB OLIC PANEL , PLASM A bilirubin, total 0.4 mg/dL 0.2-1. 2 normal Not Available [facility] [address], [address], 01/14/2025 02:37:38 01/14/20 25 01/13/2025 COMPR EHENS MILDRED METAB OLIC PANEL , PLASM A alkaline phosphatase 72 U/L 35-144 normal Not Available [facility] [address], [address], 01/14/2025 02:37:38 01/14/2001/13/2025 COMPR EHENS MILDRED METAB OLIC PANEL , PLASM A AST 27 U/L 10-35 normal Not Available [address], [address], 01/14/2025 02:37:38 01/14/20 25 01/13/2025 COMPR EHENS MILDRED METAB OLIC PANEL , PLASM A ALT 23 U/L 9-46 normal Not Available [address], [address], 01/14/2025 02:37:38 01/14/20 25 01/13/2025 COMPR EHENS MILDRED METAB OLIC PANEL , PLASM A copy(ies) sent to: DR.CH SARGENT [address] [place] [address] Not Available [address], [address], 01/14/2025 02:37:38 01/14/20 25 01/13/2025 CBC (INCL UDES DIFF/ PLT) white blood cell count 7.3 thous and/u L 3.8-10 .8 normal Not Available [address], [address], 01/14/2025 02:37:40 01/14/20 25 01/13/2025 CBC (INCL UDES DIFF/ PLT) red blood cell count 3.01 amanda on/uL 4.20-5 .80 low Not Available [address], [address], 01/14/2025 02:37:40 01/14/20 25 01/13/2025 CBC (INCL UDES DIFF/ PLT) hemoglobin 9.7 g/dL 13.2-1 7.1 low Not Available [address], [address], 01/14/2025 02:37:40 01/14/20 25 01/13/2025 CBC (INCL UDES DIFF/ PLT) hematocrit 30.5 % 38.5-5 0.0 low Not Available [facility] [address], [address], 01/14/2025 02:37:40 01/14/2001/13/2025 CBC (INCL UDES DIFF/ PLT) MCV 101.3 fL 80.0-1 00.0 high Not Available [address], [address], 01/14/2025 02:37:40 01/14/2001/13/2025 CBC (INCL UDES DIFF/ PLT) MCH 32.2 pg 27.0-3 3.0 normal Not Available [address], [address], 01/14/2025 02:37:40 01/14/2001/13/2025 CBC (INCL UDES DIFF/ PLT) MCHC 31.8 g/dL 32.0-3 6.0 low For adult s, a sligh t decre ase in the calcu lated MCHC value (in the range of 30 to 32 g/dL) is most likel y not clini harriet signi fican t; jose g er, it shoul d be inter prete d with cauti on in corre latio n with other red cell glen eters and the patie nt's clini luis enrique condi tion. Not Available [address], [address], 01/14/2025 02:37:40 01/14/2001/13/2025 CBC (INCL UDES DIFF/ PLT) RDW 13.8 % 11.0-1 5.0 normal Not Available [address], [address], 01/14/2025 02:37:40 01/14/20 25 01/13/2025 CBC (INCL UDES DIFF/ PLT) platelet count 285 thous and/u L 140-40 0 normal Not Available [address], [address], 01/14/2025 02:37:40 01/14/20 25 01/13/2025 CBC (INCL UDES DIFF/ PLT) MPV 10.7 fL 7.5-12 .5 normal Not Available [address], [address], 01/14/2025 02:37:40 01/14/20 25 01/13/2025 CBC (INCL UDES DIFF/ PLT) absolute neutrophils 5752 cells /uL 1500-7 800 normal Not Available [address], [address], 01/14/2025 02:37:40 01/14/20 25 01/13/2025 CBC (INCL UDES DIFF/ PLT) absolute lymphocytes 548 cells /uL 850-39 00 low Not Available [address], [address], 01/14/2025 02:37:40 01/14/20 25 01/13/2025 CBC (INCL UDES DIFF/ PLT) absolute monocytes 759 cells /uL 200-95 0 normal Not Available [address], [address], 01/14/2025 02:37:40 01/14/20 25 01/13/2025 CBC (INCL UDES DIFF/ PLT) absolute eosinophils 212 cells /uL 15-500 normal Not Available [address], [address], 01/14/2025 02:37:40 01/14/20 25 01/13/2025 CBC (INCL UDES DIFF/ PLT) absolute basophils 29 cells /uL 0-200 normal Not Available [address], [address], 01/14/2025 02:37:40 01/14/20 25 01/13/2025 CBC (INCL UDES DIFF/ PLT) neutrophils 78.8 % normal Not Available [address], [address], 01/14/2025 02:37:40 01/14/20 25 01/13/2025 CBC (INCL UDES DIFF/ PLT) lymphocytes 7.5 % normal Not Available [address], [address], 01/14/2025 02:37:40 01/14/2001/13/2025 CBC (INCL UDES DIFF/ PLT) monocytes 10.4 % normal Not Available [address], [address], 01/14/2025 02:37:40 01/14/2001/13/2025 CBC (INCL UDES DIFF/ PLT) eosinophils 2.9 % normal Not Available [address], [address], 01/14/2025 02:37:40 01/14/2001/13/2025 CBC (INCL UDES DIFF/ PLT) basophils 0.4 % normal Not Available [address], [address], 01/14/2025 02:37:40 01/14/20 25 01/13/2025 CBC (INCL UDES DIFF/ PLT) copy(ies) sent to: DR.CH SARGENT [address] [facility] [place] [address] Not Available [facility] [address], [address], 01/14/2025 02:37:40 01/14/20 25 01/13/2025 T4, FREE T4, free 1.2 NG/dL 0.8-1. 8 normal Not Available [address], [address], 01/14/2025 02:37:41 01/14/2001/13/2025 T4, FREE copy(ies) sent to: DR.CH SARGENT [address] [place] [address] Not Available [facility] [address] [address] [place], [address], 01/14/2025 02:37:41 01/14/2001/13/2025 TSH TSH 1.66 mIU/L 0.40-4 .50 normal Not Available [address], [address], 01/14/2025 02:37:42 01/14/2001/13/2025 TSH copy(ies) sent to: DR.CH SARGENT [address] [place] [address] Not Available [address], [address], 01/14/2025 02:37:42 01/14/2001/13/2025 HEMOG LOBIN A1C hemoglobin A1C 7.1 %_of_ total _HGB <5.7 high For someo [...] Curre ntly, no conse nsus exist s isac shelley use of hemog lobin A1c for diagn osis of diabe elisa for child ayanna. Your reque st to have a lamberto greene copy faxed has been lorna cano to: [phone] Not Available [facility] [address] [place], [address], 01/14/2025 02:37:43 01/14/2001/13/2025 HEMOG LOBIN A1C copy(ies) sent to: DR.CH SARGENT [address] [place] [address] Not Available [facility] [address] [place], [address], 01/14/2025 02:37:43 03/28/2003/29/2025 PTH, INTAC T AND CALCI UM parathyroid hormone, intact 65 pg/mL 16-77 normal Inter preti ve Guide Intac t PTH [...] or Low Nahomy l High Not Available [facility] [address] [address] [place], [address], 03/29/2025 06:57:10 03/28/2003/29/2025 PTH, INTAC T AND CALCI UM calcium 9.1 mg/dL 8.6-10 .3 normal Not Available [facility] [address] [address] [place], [address], 03/29/2025 06:57:10 03/28/20 25 03/29/2025 PTH, INTAC T AND CALCI UM copy received from: LIANA SANDOVAL [facility] [address] [facility] [address] [place] [address] Not Available [address] [address] [place], [address], 03/29/2025 06:57:10 03/28/2003/29/2025 MAGNE SIUM magnesium 2.5 mg/dL 1.5-2. 5 normal Not Available [address] [address] [place], [address], 03/29/2025 06:57:11 03/28/2003/29/2025 MAGNE SIUM copy received from: [facility] [address] [facility] [address] [place] [address] Not Available [address] [address] [place], [address], 03/29/2025 06:57:11 03/28/2003/29/2025 URIC ACID uric acid 5.7 mg/dL 4.0-8. 0 normal Thera peuti c targe t for gout patie nts: <6.0 mg/dL Not Available [address] [address] [facility] [place], [address], 03/29/2025 06:57:11 03/28/2003/29/2025 URIC ACID copy received from: [facility] [address] [facility] [address] [place] [address] Not Available [facility] [address] [address] [place], [address], 03/29/2025 06:57:11 03/28/2003/29/2025 RENAL FUNCT ION PANEL glucose 139 mg/dL 65-99 high Fasti ng refer ence inter andres For someo ne witho ut known diabe elisa, a gluco se value >125 mg/dL indic ates that they may have diabe elisa and this shoul d be confi rmed with a follo w-up test. Not Available [address], [address], 03/29/2025 06:57:12 03/28/2003/29/2025 RENAL FUNCT ION PANEL urea nitrogen (BUN) 62 mg/dL 7-25 high Not Available [address], [address], 03/29/2025 06:57:12 03/28/20 25 03/29/2025 RENAL FUNCT ION PANEL creatinine 2.17 mg/dL 0.70-1 .22 high Not Available [address], [address], 03/29/2025 06:57:12 03/28/20 25 03/29/2025 RENAL FUNCT ION PANEL eGFR 29 mL/mi n/1.7 3m2 > or = 60 low Not Available [address], [address], 03/29/2025 06:57:12 03/28/20 25 03/29/2025 RENAL FUNCT ION PANEL BUN/creatini ne ratio 29 (calc ) 6-22 high Not Available [address], [address], 03/29/2025 06:57:12 03/28/2003/29/2025 RENAL FUNCT ION PANEL sodium 136 mmol/ L 135-14 6 normal Not Available [address], [address], 03/29/2025 06:57:12 03/28/2003/29/2025 RENAL FUNCT ION PANEL potassium 4.3 mmol/ L 3.5-5. 3 normal Not Available [address], [address], 03/29/2025 06:57:12 03/28/20 25 03/29/2025 RENAL FUNCT ION PANEL chloride 97 mmol/ L 98-110 low Not Available [address], [address], 03/29/2025 06:57:12 03/28/20 25 03/29/2025 RENAL FUNCT ION PANEL carbon dioxide 32 mmol/ L 20-32 normal Not Available [address], [address], 03/29/2025 06:57:12 03/28/20 25 03/29/2025 RENAL FUNCT ION PANEL calcium 9.0 mg/dL 8.6-10 .3 normal Not Available [address], [address], 03/29/2025 06:57:12 03/28/2003/29/2025 RENAL FUNCT ION PANEL phosphate ( phosphorus) 4.6 mg/dL 2.1-4. 3 high Not Available [address], [address], 03/29/2025 06:57:12 03/28/2003/29/2025 RENAL FUNCT ION PANEL albumin 4.0 g/dL 3.6-5. 1 normal Not Available [address], [address], 03/29/2025 06:57:12 03/28/2003/29/2025 RENAL FUNCT ION PANEL copy received from: [facility] A[facility] [address]R [address] [facility] [address] [place] [address] Not Available [address], [address], 03/29/2025 06:57:12 03/28/20 25 03/29/2025 CBC (INCL UDES DIFF/ PLT) white blood cell count 9.1 thous and/u L 3.8-10 .8 normal Not Available [address], [address], 03/29/2025 06:57:12 03/28/20 25 03/29/2025 CBC (INCL UDES DIFF/ PLT) red blood cell count 3.48 amanda on/uL 4.20-5 .80 low Not Available [address], [address], 03/29/2025 06:57:12 03/28/20 25 03/29/2025 CBC (INCL UDES DIFF/ PLT) hemoglobin 11.3 g/dL 13.2-1 7.1 low Not Available [address], [address], 03/29/2025 06:57:12 03/28/2003/29/2025 CBC (INCL UDES DIFF/ PLT) hematocrit 35.4 % 38.5-5 0.0 low Not Available [address], [address], 03/29/2025 06:57:12 03/28/2003/29/2025 CBC (INCL UDES DIFF/ PLT) MCV 101.7 fL 80.0-1 00.0 high Not Available [address], [address], 03/29/2025 06:57:12 03/28/2003/29/2025 CBC (INCL UDES DIFF/ PLT) MCH 32.5 pg 27.0-3 3.0 normal Not Available [address], [address], 03/29/2025 06:57:12 03/28/2003/29/2025 CBC (INCL UDES DIFF/ PLT) MCHC 31.9 g/dL 32.0-3 6.0 low For adult s, a sligh t decre ase in the calcu lated MCHC value (in the range of 30 to 32 g/dL) is most likel y not clini harriet signi marylu t; jose g er, it shoul d be inter prete d with cauti on in [facility] n with other red cell glen eters and the patie nt's clini luis enrique condi tion. Not Available [address], [address], 03/29/2025 06:57:12 03/28/2003/29/2025 CBC (INCL UDES DIFF/ PLT) RDW 13.6 % 11.0-1 5.0 normal Not Available [address], [address], 03/29/2025 06:57:12 03/28/2003/29/2025 CBC (INCL UDES DIFF/ PLT) platelet count 217 thous and/u L 140-40 0 normal Not Available [facility] [address], [address], 03/29/2025 06:57:12 03/28/2003/29/2025 CBC (INCL UDES DIFF/ PLT) MPV 11.0 fL 7.5-12 .5 normal Not Available [address], [address], 03/29/2025 06:57:12 03/28/2003/29/2025 CBC (INCL UDES DIFF/ PLT) absolute neutrophils 7189 cells /uL 1500-7 800 normal Not Available [address], [address], 03/29/2025 06:57:12 03/28/2003/29/2025 CBC (INCL UDES DIFF/ PLT) absolute lymphocytes 555 cells /uL 850-39 00 low Not Available [address], [address], 03/29/2025 06:57:12 03/28/2003/29/2025 CBC (INCL UDES DIFF/ PLT) absolute monocytes 1028 cells /uL 200-95 0 high Not Available [facility] [address] [place], [address], 03/29/2025 06:57:12 03/28/2003/29/2025 CBC (INCL UDES DIFF/ PLT) absolute eosinophils 309 cells /uL 15-500 normal Not Available [facility] [address], [address], 03/29/2025 06:57:12 03/28/2003/29/2025 CBC (INCL UDES DIFF/ PLT) absolute basophils 18 cells /uL 0-200 normal Not Available [facility] [address], [address], 03/29/2025 06:57:12 03/28/2003/29/2025 CBC (INCL UDES DIFF/ PLT) neutrophils 79 % normal Not Available [facility] [address], [address], 03/29/2025 06:57:12 03/28/2003/29/2025 CBC (INCL UDES DIFF/ PLT) lymphocytes 6.1 % normal Not Available [facility] [address], [address], 03/29/2025 06:57:12 03/28/2003/29/2025 CBC (INCL UDES DIFF/ PLT) monocytes 11.3 % normal Not Available [facility] [address], [address], 03/29/2025 06:57:12 03/28/2003/29/2025 CBC (INCL UDES DIFF/ PLT) eosinophils 3.4 % normal Not Available [facility] [address], [address], 03/29/2025 06:57:12 03/28/2003/29/2025 CBC (INCL UDES DIFF/ PLT) basophils 0.2 % normal Not Available [facility] [address], [address], 03/29/2025 06:57:12 03/28/2003/29/2025 CBC (INCL UDES DIFF/ PLT) copy received from: [facility] AY NEPHR OLOGY ELLIOTT [id number] [facility] [address] [phone] Not Available [address], [address], 03/29/2025 06:57:12 03/28/2003/29/2025 URINA LYSIS , COMPL ETE W/REF PABLO TO CULTU RE color YELLOW yellow normal Not Available [address], [address], 03/29/2025 06:57:13 03/28/2003/29/2025 URINA LYSIS , COMPL ETE W/REF PABLO TO CULTU RE appearance CLEAR clear normal Not Available [address], [address], 03/29/2025 06:57:13 03/28/2003/29/2025 URINA LYSIS , COMPL ETE W/REF PABLO TO CULTU RE specific gravity 1.013 1.001- 1.035 normal Not Available [address], [address], 03/29/2025 06:57:13 03/28/2003/29/2025 URINA LYSIS , COMPL ETE W/REF PABLO TO CULTU RE pH 5.5 5.0-8. 0 normal Not Available [address], [address], 03/29/2025 06:57:13 03/28/2003/29/2025 URINA LYSIS , COMPL ETE W/REF PABLO TO CULTU RE glucose NEGATI VE negati ve normal Not Available [address], [address], 03/29/2025 06:57:13 03/28/20 25 03/29/2025 URINA LYSIS , COMPL ETE W/REF PABLO TO CULTU RE bilirubin NEGATI VE negati ve normal Not Available [address], [address], 03/29/2025 06:57:13 03/28/20 25 03/29/2025 URINA LYSIS , COMPL ETE W/REF PABLO TO CULTU RE ketones NEGATI VE negati ve normal Not Available [address], [address], 03/29/2025 06:57:13 03/28/2003/29/2025 URINA LYSIS , COMPL ETE W/REF PABLO TO CULTU RE occult blood NEGATI VE negati ve normal Not Available [address], [address], 03/29/2025 06:57:13 03/28/20 25 03/29/2025 URINA LYSIS , COMPL ETE W/REF PABLO TO CULTU RE protein NEGATI VE negati ve normal Not Available [address], [address], 03/29/2025 06:57:13 03/28/20 25 03/29/2025 URINA LYSIS , COMPL ETE W/REF PABLO TO CULTU RE nitrite NEGATI VE negati ve normal Not Available [address], [address], 03/29/2025 06:57:13 03/28/20 25 03/29/2025 URINA LYSIS , COMPL ETE W/REF PABLO TO CULTU RE leukocyte esterase NEGATI VE negati ve normal Not Available [address], [address], 03/29/2025 06:57:13 03/28/20 25 03/29/2025 URINA LYSIS , COMPL ETE W/REF PABLO TO CULTU RE WBC NONE SEEN /hpf < or = 5 normal Not Available [address], [address], 03/29/2025 06:57:13 03/28/2003/29/2025 URINA LYSIS , COMPL ETE W/REF PABLO TO CULTU RE RBC NONE SEEN /hpf < or = 2 normal Not Available [address], [address], 03/29/2025 06:57:13 03/28/2003/29/2025 URINA LYSIS , COMPL ETE W/REF PABLO TO CULTU RE squamous epithelial cells NONE SEEN /hpf < or = 5 normal Not Available [address], [address], 03/29/2025 06:57:13 03/28/20 25 03/29/2025 URINA LYSIS , COMPL ETE W/REF PABLO TO CULTU RE bacteria NONE SEEN /hpf none seen normal Not Available [address], [address], 03/29/2025 06:57:13 03/28/2003/29/2025 URINA LYSIS , COMPL ETE W/REF PABLO TO CULTU RE hyaline cast NONE SEEN /lpf none seen normal Not Available [address], [address], 03/29/2025 06:57:13 03/28/2003/29/2025 URINA LYSIS , COMPL ETE W/REF PABLO TO CULTU RE note This urine was sylvie zed for the prese nce of WBC, RBC, bacte vi, casts , and other forme d eleme nts. Only those eleme nts seen were repor wade. Not Available [address], [address], 03/29/2025 06:57:13 03/28/2003/29/2025 URINA LYSIS , COMPL ETE W/REF PABLO TO CULTU RE copy received from: [facility] NEPHR O[facility] G30 [address] [facility] [place] [address] Not Available [facility] [address] [address] [place], [address], 03/29/2025 06:57:13 03/28/20 25 03/29/2025 REFLE XIVE URINE CULTU RE reflexive urine culture NO CULTU RE INDIC ATED Not Available [facility] [address] [address] [place], [address], 03/29/2025 06:57:13 03/28/20 25 03/29/2025 REFLE XIVE URINE CULTU RE copy received from: [facility] NEPHR [facility] G30 [address] [place] [address] Not Available [address] [address] [place], [address], 03/29/2025 06:57:13 03/28/20 25 03/29/2025 VITAM IN D,25- OH,TO JANE,I A vitamin D,25-oh,tota l,ia 55 NG/mL 30-100 normal Vitam in D Statu [...] is recom jose c d: order code 11826 (vasyl ents >2yrs ). See Note 1 Note 1 For addit ional infor yanique irwin e refer to http: //michael Menjivar stDia gnost ics.c om/fa q/FAQ 199 (This link is being provi ded for infor shannan cruz/ educraoul hanna l purpo ses only. ) Not Available [address], [address], 03/29/2025 06:57:14 03/28/2003/29/2025 VITAM IN D,25- OH,TO JANE,I A copy received from: [facility] A[facility] NEPHR [facility]LOGY [facility] G30 [address] [facility] A[address] [place] [address] Not Available [address], [address], 03/29/2025 06:57:14 03/28/20 25 03/29/2025 PROTE IN, TOTAL W/CRE AT, RANDO M URINE creatinine, random urine 56 mg/dL 20-320 normal Not Available [address], [address], 03/29/2025 06:57:14 03/28/20 25 03/29/2025 PROTE IN, TOTAL W/CRE AT, RANDO M URINE protein/crea tinine ratio 89 mg/g_ creat 25-148 normal Not Available [address], [address], 03/29/2025 06:57:14 03/28/20 25 03/29/2025 PROTE IN, TOTAL W/CRE AT, RANDO M URINE protein/crea tinine ratio 0.089 mg/mg _crea t 0.025- 0.148 normal Not Available [address], [address], 03/29/2025 06:57:14 03/28/2003/29/2025 PROTE IN, TOTAL W/CRE AT, RANDO M URINE protein, total, random ur 5 mg/dL 5-25 normal Not Available [address], [address], 03/29/2025 06:57:14 03/28/20 25 03/29/2025 PROTE IN, TOTAL W/CRE AT, RANDO M URINE copy received from: [facility]R [facility] G[address] [facility] [place] [address] Not Available [address] [address] [place], [address], 03/29/2025 06:57:14 03/28/20 25 03/29/2025 PROTE IN, TOTAL W/CRE AT, RANDO M URINE creatinine, random urine 56 mg/dL 20-320 normal Not Available [address] [address] [place], [address], 03/29/2025 06:58:16 03/28/20 25 03/29/2025 PROTE IN, TOTAL W/CRE AT, RANDO M URINE protein/crea tinine ratio 89 mg/g_ creat 25-148 normal Not Available [address], [address], 03/29/2025 06:58:16 03/28/20 25 03/29/2025 PROTE IN, TOTAL W/CRE AT, RANDO M URINE protein/crea tinine ratio 0.089 mg/mg _crea t 0.025- 0.148 normal Not Available [address] [address] [place], [address], 03/29/2025 06:58:16 03/28/20 25 03/29/2025 PROTE IN, TOTAL W/CRE AT, RANDO M URINE protein, total, random ur 5 mg/dL 5-25 normal Not Available [address] [address] [place], [address], 03/29/2025 06:58:16 03/28/2003/29/2025 PROTE IN, TOTAL W/CRE AT, RANDO M URINE copy received from: [facility] NEPHR [facility] G[address] [place] [address] Not Available [address] [address] [place], [address], 03/29/2025 06:58:16 03/14/20 24 03/14/2024 MRI, lumba r spine , w/o contr ast No observ ation record ed. [address], [place], [address], 03/14/2024 10:19:51 03/31/20 24 03/31/2024 US, echoc ardio gram No observ ation record ed. [address] [facility] [address], [place], [address], 04/01/2024 10:02:13 04/05/20 24 04/05/2024 US, doppl er, arter ial No observ ation record ed. [address] [facility] [address], [place], [address], 04/05/2024 15:12:29 04/05/20 24 04/05/2024 US, doppl er, arter ial No observ ation record ed. [email or web address] [facility] [address], [place], [address], 04/06/2024 15:25:16 04/25/20 24 03/11/2024 MRI, cervi luis enrique spine , w/o contr ast No observ ation record ed. [email or web address] Not Available 2023 15:09:40 05/18/20 24 05/05/2024 lab* No observ ation record ed. [email or web address] Not Available 2023 17:00:24 06/24/20 25 06/20/2025 US, echoc ardio gram No observ ation record ed. [address] [facility] [address], [place], [address], 06/24/2025 16:29:56 06/24/20 25 05/15/2025 gregory r monit or No observ ation record ed. [address] [facility] [address], [place], [address], 06/24/2025 16:30:38 Result Notes None recorded. 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 Not Available [facility] 17:10:39 Radiotherapy follow-up 488506895 Active Not Available [facility] 17:10:39 Knee joint effusion 545738441 Active Not Available [facility] 17:10:39 Glaucoma 80764350 Active Not Available [facility] 17:10:39 Osteoarthriti s of hip 209265742 Active Not Available [facility] 17:10:39 Osteoarthriti s of knee 143590530 Active Not Available [facility] 17:10:39 Pure hypercholeste rolemia 898546105 Active Rhonda Ramirez MD [address] [facility], [address] [address], [place], [address] , [facility] [employer] [facility] 5 11:46:10 Low back pain 698856804 Active Not Available [facility] 17:10:39 Osteoarthriti s 040694296 Active Not Available [facility] 17:10:39 Chronic kidney disease stage 3 715855019 Active Rhonda Ramirez MD [address] [facility], [facility] [address], [place], [address] , [employer] [facility] 5 11:51:59 Type 2 diabetes mellitus 64972811 Active Sue Emery CMA null, [place] [employer] [facility] 5 16:32:08 Derangement of knee 14663238 Active Not Available [facility] 17:10:39 Degeneration of intervertebra l disc 70538574 Active Not Available [facility] 17:10:39 Iron deficiency anemia 98758768 Active Not Available [facility] 3 17:10:39 Gout 36150312 Active Not Available [facility] 17:10:39 Prostatitis 5193856 Active Not Available [facility] 3 17:10:39 Diastolic heart failure 736248847 Active 2018 Not Available [facility] 3 17:10:39 Polyp of colon 02516982 Active 2019 Not Available [facility] 3 17:10:39 Atrial fibrillation 59328927 Active 2020 Rhonda Ramirez MD [address], [place], [address] , [place] [facility] 5 11:46:05 Cellulitis of foot 366994016 Active 2021 Not Available [facility] 3 17:10:39 Essential hypertension 63106506 Active 2021 Rhonda Ramirez MD [address], [place], [address] , [place] [facility] 5 11:46:00 COVID-19 601285435 Active 2021 Not Available [facility] 3 17:10:39 Type 2 diabetes mellitus without complication 503367807 Active 2022 Rhonda Ramirez MD [address], [place], [address] , [facility] - [facility] 5 11:46:16 Diarrhea 06104353 Active 2022 Not Available [facility] 3 17:10:39 Anemia 144421906 Active 2022 Not Available [facility] 3 17:10:39 Spinal stenosis of lumbar region 72679275 Active 2023 Rhonda Ramirez MD [address], [place], [address] , [place] [facility] 4 17:12:31 Intermittent claudication 55034649 Active 2023 Lashaun cabezas [place] [facility] 4 17:19:26 Lumbar radiculopathy 473545382 Active 2023 Lashaun cabezas [place] [facility] 4 17:21:08 Lumbar spondylosis 167812984 Active 2023 Sue Emery CMA null, [facility] 4 16:40:24 Edema of lower extremity 178452791 Active 2024 Sue Emery CMA null, [facility] 5 11:46:46 Problem Notes None recorded. Procedures Surgical History Date Name Laterality Status Provider Name and Address Organization Details Recorded Time 4 Medicare Wellness CPT Code, subsequent completed Cara Altamirano RN [facility] 05/12/2024 11:16:17 3 Medicare Wellness CPT Code, subsequent completed Cara Altamirano RN [facility] 05/01/2023 11:47:36 Imaging Results None recorded. Procedure Notes None recorded. Medical Equipment None Reported. Allergies Allergen ID Allergen Name Allergen Category Reaction Reaction Severity Criticality Documentation Date Start Date Code Code System Note Provider Name and Address Organization Details Recorded Time 46725 Bydureon medicatio n diarrhea Not available Not available 10/15/2022 [address] 64 RxNorm Not Available [facility] 3 13:55:00 Medications Name Sig Start Date Stop Date Status Note LastModified by Organization Details LastModified Time amoxicillin 500 mg capsule TAKE 4 CAPSULES BY MOUTH BEFORE DENTAL PROCEDURE 05/10 completed Not Available Not Available Not Available furosemide 40 mg tablet TAKE 1 TABLET DAILY 2024 active Not Available Not Available Not Avai lable metolazone 2.5 mg tablet Take 1 tablet every day by oral route for 10 days. 07/07 completed Not Available Not Available Not Available Miralax 17 gram/dose oral powder Take 17 g every day by oral route. 03/05 completed Not Available Not Available Not Available atorvastati n 40 mg tablet TAKE 1 TABLET DAILY FOR CHOLESTER OL 2024 active Not Available Not Available Not Avai lable sennosides 8.6 mg tablet Take 2 tablets every day by oral route. 04/25 completed Not Available Not Available Not Available naproxen 375 mg tablet active Not Available Not Available Not Available glyburide 5 mg tablet TAKE 1 TABLET TWICE A DAY 2024 active Not Available Not Available Not Avai lable cimetidine 400 mg tablet Take 1 tablet [...] Not Available travoprost 0.004 % eye drops 01/12 completed Not Available Not Available Not Available Ultram [...] TAKE 1 CAPSULE AT BEDTIME FOR PROSTATE 2024 active Not Available Not Available Not Avai lable cephalexin 500 mg capsule Take 1 capsule [...] Not Available Not Available Not Avai lable [place] 3 twice a day 2012 active Not Available Not Available Not Avai lable Blood Glucose Monitoring 12/27 completed Not Available Not Available Not Available peg 3350 240 gram-electr olytes 22.72 gram-6.72 g-5.84 g powdr for soln active Not Available Not Available Not Available brimonidine 0.2 %-timolol 0.5 % eye drops INSTILL 1 DROP INTO [...] Available No t Available True Metrix Glucose Meter USE TO TEST BLOOD SUGAR ONCE DAILY active Not Available Not Available No t Available [employer] Glucose Test Strip test once daily 12/29 completed Not Available Not Available Not Available Trulicity 1.5 mg/0.5 mL subcutaneou s pen injector inject 1.5 mg under the skin once weekly 2024 active Not Available Not Available Not Avai lable Trulicity 0.75 mg/0.5 mL subcutaneou s pen injector Inject 0.5 mL every week by subcutane ous route. 01/01 completed Not Available Not Available Not Available Accu-Chek Fastclix Lancet Drum USE TO TEST BLOOD SUGAR ONCE DAILY active Not Available Not Available No t Available blood ketone glucose monitor 12/27 completed Not Available Not Available Not Available Flowflex COVID-19 Antigen Home Test kit 10/24 completed Not Available Not Available Not Available Paxlovid 150 mg-100 mg tablets in a dose pack (Moderate Renal Dose) TAKE ONE 150MG AND ONE 100MG TABLET TWICE DAILY FOR FIVE DAYS. 01/12 completed Not Available Not Available Not Available Vitals Date Recorded Body height Body mass index (BMI) Body weight Heart rate Body temperature Oxygen saturation Systolic And Diastolic Provider Name and Address Organization Details Last Updated DateTime 5 180.34 cm 22.9 kg/m2 79916.9 4 g 92 /min 97 [degF] 98 % 118/58 mm[Hg] Sary [employer] [facility] [employer] 5 11:33:13 Date Recorded Body height Body mass index (BMI) Body weight Heart rate Body temperature Oxygen saturation Systolic And Diastolic Provider Name and Address Organization Details Last Updated DateTime 5 180.34 cm 21.9 kg/m2 31329 g 58 /min 97 [degF] 96 % 112/60 mm[Hg] Sary [employer] 5 11:54:31 Date Recorded Body height Body mass index (BMI) Body weight Heart rate Body temperature Oxygen saturation Systolic And Diastolic Provider Name and Address Organization Details Last Updated DateTime 4 180.34 cm 23 kg/m2 69111.7 4 g 68 /min 97.7 [degF] 98 % 118/74 mm[Hg] WENDY Foster [employer] [facility] [employer] 4 16:42:03 Date Recorded Heart rate Provider Name an d Address Organization Details Last Updated DateTime 05/11/2025 58 /min Rhonda Ramirez MD [address] [place] [address], [address], [address], [place] [employer] [facility] [employer] 05/11/2025 11:46:57 Date Recorded Body height Body mass index (BMI) Body weight Body temperature Oxygen saturation Systolic And Diastolic Provider Name and Address Organization Details Last Updated DateTime 5 180.34 cm 21.9 kg/m2 50836 g 97.2 [degF] 99 % 112/58 mm[Hg] Sary Smalls [facility] 5 11:42:07 Date Recorded Body height Body mass index (BMI) Body weight Heart rate Body temperature Oxygen saturation Systolic And Diastolic Provider Name and Address Organization Details Last Updated DateTime 4 180.34 cm 22.9 kg/m2 04495.1 5 g 64 /min 97 [degF] 98 % 122/68 mm[Hg] [facility] 4 11:11:41 Date Recorded Pain severity - 0-10 verbal numeric rating [Score] - Reported Provider Name and Address Organization Details Last Updated DateTime 05/12/2024 3 Cara Altamirano RN [facility] 05/12/2024 11:16:33 Social History Question Answer Notes LastModified by Organization Details LastModified Time Tobacco Smoking Status Never Smoker Not Available [facility] 10/15/2022 13:52:28 Do You Have An Advance Directive? Yes [id number] Information not available 10/15/2022 Are You Blind Or Do You Have Difficulty Seeing? No MIGRATION.030 [id number] Information not available 10/15/2022 In The 14 Days Before Symptom Onset, Have You Had Close Contact With A Laboratory-confi rmed COVID-19 While That Case Was Ill? No [id number] Information not available 10/15/2022 In The 14 Days Before Symptom Onset, Have You Had Close Contact With A Person Who Is Under Investigation For COVID-19 While That Person Was Ill? No MIGRATION.030 [id number] Information not available 10/15/2022 Are You Deaf Or Do You Have Serious Difficulty Hearing? Yes Has Hearing Aids [email or web address] Information not available 05/12/2024 What Type Of Diet Are You Following? REGULAR MIGRATION.300026 Information not available 10/15/2022 Have There Been Any Changes To Your Family Or Social Situation? No MIGRATION.030 [id number] Information not available 10/15/2022 What Is The Fluoride Status Of Your Home? Unknown [id number].300026 Information not available 10/15/2022 Are There Any Guns Present In Your Home? Yes MIGRATION.030 [id number] Information not available 10/15/2022 Do You Use Insect Repellent Routinely? No MIGRATION.0301 [id number] Information not available 10/15/2022 Where Do You Live? [place]House MIGRATION.0301 [id number] Information not available 10/15/2022 Guns Present In The Home? Yes [email or web address] Information not available 05/01/2023 Are You Able To Care For Yourself? Yes [email or web address] Information not available 05/01/2023 Are You Blind Or Do Yo Have Difficulty Seeing? No [email or web address] Information not available 05/01/2023 Are You Deaf Or Do You Have Serious Difficulty Hearing? Yes Information not available 05/12/2024 Live Alone Of With Others? With Others [email or web address] Information not available 05/01/2023 Do You Have A Medical Power Of Electronics Utility Worker? Yes [email or web address] Information not available 05/01/2023 What Was The Date Of Your Most Recent Tobacco Screening? 05/12/2024 [email or web address] Information not available 05/12/2024 Do You Have Any Pets? No MIGRATION.0301 [id number] Information not available 10/15/2022 What Is Your Relationship Status? MIGRATION.0301 [id number] Information not available 10/15/2022 Do You Use Your Seat Belt Or Car Seat Routinely? Yes MIGRATION.0301 [id number] Information not available 10/15/2022 Do You Have Smoke And Carbon Monoxide Detectors In Your Home? Yes MIGRATION.0301 [id number] Information not available 10/15/2022 Are You Passively Exposed To Smoke? No MIGRATION.0301 [id number] Information not available 10/15/2022 Are There Any Smokers In Your House? No MIGRATION.0301 [id number] Information not available 10/15/2022 Do You Use Sunscreen Routinely? Yes MIGRATION.0301 [id number] Information not available 10/15/2022 Have You Recently Traveled Abroad? No MIGRATION.0301 [id number] Information not available 10/15/2022 Do You Have Difficulty Walking Or Climbing Stairs? No MIGRATION.0301 [id number] Information not available 10/15/2022 Do You Have Any Dietary Restrictions? No MIGRATION.0301 [id number] Information not available 10/15/2022 Sex: Unknown Functional Status Question Answer Note LastModified by Organizat ion Details LastModified Time What is your level of alcohol consumption? None MIGRATION.[id number] Information not available 10/15/2022 Do you have transportation difficulties? No MIGRATION.648600 6299 Information not available 10/15/2022 Are you able to walk independently without assistance or assistive devices? YESWOREST MIGRATION.751285 8111 Information not available 10/15/2022 Do you have difficulty doing errands alone? No MIGRATION.054482 3891 Information not available 10/15/2022 Are you able to care for yourself independently? Yes MIGRATION.454682 [id number] Information not available 10/15/2022 Do you have difficulty dressing, bathing, grooming, or toileting? No MIGRATION.127126 3068 Information not available 10/15/2022 Do you or have you ever used e-cigarettes or vape? Never used electronic cigarettes MIGRATION.991678 1298 Information not available 10/15/2022 What is your exercise level? Occasional [email or web address] Information not available 05/12/2024 Mental Status Question Answer Note LastModified by Organizat ion Details LastModified Time Do you have difficulty concentrating, remembering or making decisions? No MIGRATION.[id number] 6 Information not available 10/15/2022 Family History [...] HAVE YOU BEEN HOSPITALIZED OR SEEN IN [facility] IN THE PAST YEAR ? N ATHEROSCLEROSIS [...] Details Recorded Time Pneumococcal conjugate PCV20, polysaccharide TKH150 conjugate, adjuvant, PF 5 completed Sary Smalls [employer] 09/22/2024 15:13:55 SARS-COV-2 (COVID-19) vaccine, UNSPECIFIED 2 completed Not Available [facility] 05/07/2023 03:14:03 influenza nasal, unspecified formulation 2 completed Not Available [facility] 05/07/2023 03:14:03 SARS-COV-2 (COVID-19) vaccine, UNSPECIFIED 4 completed Sary Smalls [employer] 05/12/2024 11:12:43 Influenza, high-dose, trivalent, PF 6 completed Not Available [facility] 05/11/2025 11:03:48 Influenza, high-dose, trivalent, PF 7 completed Not Available [facility] 05/11/2025 11:03:48 Influenza, adjuvanted, trivalent, PF 9 completed Not Available [facility] 05/11/2025 11:03:48 zoster recombinant 9 completed Not Available [facility] 05/11/2025 11:03:48 Influenza, split virus, trivalent, PF 0 completed Not Available [facility] 05/11/2025 11:03:48 COVID-19, mRNA, LNP-S, bivalent, PF, 50 mcg/0.5 mL or 25mcg/0.25 mL dose 2 completed Not Available [facility] 05/11/2025 11:03:48 RSV, recombinant, protein subunit RSVpreF, adjuvant reconstituted, 0.5 mL, PF 3 completed Not Available [facility] 05/11/2025 11:03:48 Influenza, adjuvanted, quadrivalent, PF 3 completed Not Available [facility] 05/11/2025 11:03:48 COVID-19, mRNA, LNP-S, PF, erica-sucrose, 30 mcg/0.3 mL 3 completed Not Available [facility] 05/11/2025 11:03:48 Influenza, adjuvanted, trivalent, PF 4 completed Not Available [facility] 05/11/2025 11:03:48 COVID-19, mRNA, LNP-S, PF, erica-sucrose, 30 mcg/0.3 mL 5 completed Not Available [facility] 05/11/2025 11:03:48 Influenza, high-dose, trivalent, PF 5 completed Not Available [facility] 05/11/2025 11:03:48 SARS-COV-2 (COVID-19) vaccine, UNSPECIFIED 1 completed Not Available [facility] 05/07/2023 03:14:03 SARS-COV-2 (COVID-19) vaccine, UNSPECIFIED 1 completed Not Available [facility] 05/07/2023 03:14:03 zoster, unspecified formulation 9 completed Not Available [facility] [facility] 05/07/2023 03:14:03 SARS-COV-2 (COVID-19) vaccine, UNSPECIFIED 1 completed Not Available [facility] 05/07/2023 03:14:03 Influenza, split virus, quadrivalent, preservative 1 completed Not Available [facility] 05/07/2023 03:14:03 Pneumococcal conjugate PCV 13 5 completed Not Available [facility] 05/07/2023 03:14:03 Tdap 5 completed Not Available [facility] 05/07/2023 03:14:03 Past Encounters Encounter ID Performer Location Encounter Start Date Encounter Closed Date Diagnosis/Indication Diagnosis SNOMED-CT Code Diagnosis ICD10 Code Diagnosis IMO Codes Diagnosis Note [id number] Rhonda Ramirez MD [facility] Internal [place] [address] [place] [address] y , [place] [address] 10/30/2020 00:00:00 10/30/2020 11:05:43 [id number] Rhonda Ramirez MD [facility] Internal [place] [address] [place] [address] [place] [address] 02/26/2021 00:00:00 02/26/2021 12:27:53 [id number] Rhonda Ramirez MD [facility] Internal [place] [address] [place] [address] [place] [address] 06/25/2021 00:00:00 06/25/2021 12:00:30 [id number] [facility] [place] [address] [place] [address] [place] [address] 10/22/2021 00:00:00 10/22/2021 11:50:45 [id number] Rhonda Ramirez MD [facility] Internal [place] [address] [place] [address] [place] [address] 04/25/2022 00:00:00 04/25/2022 15:23:35 [id number] Rhonda Ramirez MD [facility] Internal [facility] [place] [address] [place] [address] [place] [address] 10/24/2022 11:05:44 10/24/2022 12:04:32 Atrial fibrillation 18202893 I48.91 Chronic ki dney disease stage 3 608352477 N18.30 Essential hypertension 98301101 I10 Gout 78926462 M10.9 Pure hypercholesterolemia 978836287 E78.00 Type 2 brea betes mellitus 56519971 E11.9 [id number] Rhonda Ramirez MD [facility] Internal Med [place] [address] [place] [address] y , [place] [address] 05/01/2023 11:29:03 05/01/2023 12:22:49 Adult health examination 153954320 Z00.00 Screening for disorder 562882790 Z13.9 Chronic ki dney disease stage 3 608524568 N18.30 Essential hypertension 55652621 I10 Pure hypercholesterolemia 809551092 E78.00 Type 2 brea betes mellitus 35581968 E11.9 Atrial fibrillation 4943 6004 I48.91 [id number] Rhonda Ramirez MD [facility] Internal [facility] [place] [address] [place] [address] [place] [address] 09/29/2023 10:49:09 09/29/2023 11:27:19 Essential hypertension 38378823 I10 Atrial fibrillation 4943 6004 I48.91 Chronic ki dney disease stage 3 909928504 N18.30 Pure hypercholesterolemia 400567552 E78.00 Type 2 brea betes mellitus without complication 700095569 E11.9 [id number] Rhonda Ramirez MD [facility] Internal [place] [address] [place] [address] [place] [address] 11/06/2023 10:42:37 11/06/2023 11:07:03 Essential hypertension 30612948 I10 Chronic ki dney disease stage 3 574645768 N18.30 Atrial fibrillation 4943 6004 I48.91 Type 2 brea betes mellitus 37268051 E11.9 [id number] Rhonda Ramirez MD [facility] Internal Med [facility] [address] [facility] [place] [address] 03/09/2024 16:34:57 03/09/2024 17:16:16 Spinal stenosis of lumbar region 65253332 M48.061 Essential hypertension 82606972 I10 Atrial fibrillation 4943 6004 I48.91 Pure hypercholesterolemia 130863169 E78.00 Type 2 brea betes mellitus without complication 255637926 E11.9 [id number] Rhonda Ramirez MD [facility] Internal Med [facility] [address] [place] [address] , [place] [address] 05/12/2024 10:50:31 05/12/2024 11:50:58 Adult health examination 093260182 Z00.00 Screening for disorder 342117471 Z13.9 Essential hypertension 48503494 I10 Atrial fibrillation 4943 6004 I48.91 Pure hypercholesterolemia 667849471 E78.00 Type 2 brea betes mellitus without complication 860603465 E11.9 Chronic ki dney disease stage 3 199770022 N18.30 [id number] Rhonda Ramirez MD [facility] Primary Care [facility] [address] [facility] [address] [place] [address] 09/15/2024 11:06:47 09/15/2024 12:06:38 Essential hypertension 29899084 I10 Atrial fibrillation 4943 6004 I48.91 Chronic ki dney disease stage 3 587367053 N18.30 Pure hypercholesterolemia 041418986 E78.00 Type 2 brea betes mellitus without complication 231705563 E11.9 [id number] Rhonda Ramirez MD [facility] Internal Med [facility] [address] [address] 01/12/2025 11:20:44 01/12/2025 12:23:13 Atrial fibrillation 47267857 I48.91 Chronic ki dney disease stage 3 927125085 N18.30 Essential hypertension 83900458 I10 Pure hypercholesterolemia 898727945 E78.00 Type 2 brea betes mellitus 52631747 E11.9 Z79.4 46860362 [id number] Rhonda Ramirez MD [facility] Internal Med [place] [address] [facility], [place] [address] 05/11/2025 11:02:29 05/11/2025 11:56:30 Essential hypertension 87694724 I10 Atrial fibrillation 4943 6004 I48.91 Pure hypercholesterolemia 988688490 E78.00 Type 2 brea betes mellitus without complication 642524586 E11.9 Chronic ki dney disease stage 3 348427999 N18.30 Health Concerns Section Related Observation LastModified by Organization Detai ls LastModified Time None Recorded Concern Status LastModified by Organization Details LastModified Time None Recorded Advance Directives Directive Y: Payers Insurance Date Sequence Insurance Name Policy Number Policy Bermeo Covered Member ID Bermeo Member ID Guarantor Name 05/11/2025 1 [place] Brandon Wagoner [id number] Brandon Wagoner 05/10/2025 2 [facility] [id number] Brandon Wagoner [id number] Brandon Wagoner Notes Date Note Type Note Provider Name and Address Organization Details Recorded Time 03/09/20 24 text/htm l Patient Name: Brandon Johnson RizwanaDate Of Service: Thursday ( 03.09.2024 [...] Systemic Symptoms:none Medication Reconciliation: from medication list. Rezvgcazzol83/31/2023: Echocardiogram shows an estimated ejection fraction of [...] specific medication. Rate control: rapid ventricular response [id number] Criteria: hypertension, Age > 75 and and [...] (TABLET - ORAL) Once Daily Vaccination and Vjmbywzitybz9308-57 Ahi2942-23 Jngwugbdc6322-08 Covid Booster Ezmswue5872-29 Covid Zyrytwj7625-02 Prevnar 13 Gj7093-23 Gtexfnyyc4382-62 Zostavax (shingles) Surgical Wpwuore7013-01 Lt. KMQ2381-77 Right ZSU1094-34 Rt. Khqaplmy8537-02 Left Laser Cataract wazowvab1034-14 Lt. xiopfsio3168-94 Lt Gmfuywja9148-99 Laser Left Qhk9714-54 Right Tyophjgq4697-82 Rt. Detached Retina Preventative Phwrcvi0401/12/2024 EVHWWMALDXAWX57/27/2024 ALBUMIN 3.9 G/DL N010/13/2023 MICRO ALBUMIN 0.4 MG/DL N010/13/2023 HAIC 6.7 % OF TOTAL HGB H004/23/2016 PSA 1.2 NG/ML N109/04/2012 COLONOSCOPY (5 YEARS) 07/05/2018 Social HistoryDoes not smoke cigarettes. 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 Family HistoryMother 77 years oldFather 79 years old3 Brothers 1 Living2 Sisters 0 LivingMother Hx: DM, HTNFather Hx: MVABrother Hx: DM (4) , HTN (2) , Ca of Brain (1) CVA(1) Dementia(1)Sisters Hx: CVA(1), Dementia(1), CHRISTINE Ramirez MD [address] [facility], [facility] [address], [place], [address], [facility] [employer] 03/09/2024 17:12:55 05/12/20 24 text/htm l Patient Name: Brandon WagonerDate Of Service: April ( 05.12.2024 ): [...] Systemic Symptoms:none Medication Reconciliation: from medication list. Mefwpumfqwe21/31/2023: Echocardiogram shows an estimated ejection fraction of [...] non healing lesions. The last HAIC was [facility] HAIC: 6.7 Calculated MB mg%. CGM: No. [...] doing well. Currently is followed by a personal financial advisor. Stage: CKD-3b. Albumin Stage: A1. There has [...] (TABLET - ORAL) Once Daily Vaccination and Dmlxoqhhkjgc0375-63 Covid Booster Kcemnpe1594-89 Uxg2388-32 Fnuhblwaq4264-91 Covid Olhzjph6733-16 Prevnar 13 Ep3361-95 Dtdzznhxd0376-65 Zostavax (shingles) Surgical Odkridu6419-85 Lt. ZFJ6745-33 Right TSZ2716-54 Rt. Bpqzdzqx3859-29 Left Laser Cataract rinuurcl1126-04 Lt. pzapreit9243-50 Lt Agyuqkan4259-72 Laser Left Vrn4687-13 Right Wclmalln2359-79 Rt. Detached Retina Preventative Testing( ) 01/12/2024 Ophthalmology( ) 10/13/2023 Albumin 3.9 G/DL N( ) 10/13/2023 Micro Albumin 0.4 MG/DL N( ) 10/13/2023 HAIC 6.7 % OF TOTAL HGB H( ) 04/23/2016 PSA 1.2 NG/ML N 04/23/2018( ) 07/05/2013 Colonoscopy (5 years) 07/05/2018 Social HistoryDoes not smoke cigarettes. 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 Family HistoryMother 77 years oldFather 79 years old3 Brothers 1 Living2 Sisters 0 LivingMother Hx: DM, HTNFather Hx: MVABrother Hx: DM (4) , HTN (2) , Ca of Brain (1) CVA(1) Dementia(1)Sisters Hx: CVA(1), Dementia(1), CHRISTINE Ramirez MD [address] [facility], [facility] [address], [place], [address], [facility] [employer] 05/12/2024 11:49:54 09/15/19 25 text/htm l Patient Name: Brandon Blackburn Of Service: August ( 09.15.2024 ): 1935 [...] Systemic Symptoms:none Medication Reconciliation: from medication list. Cecvbtlkzhe39/31/2023: Echocardiogram shows an estimated ejection fraction of [...] specific medication. Rate control: rapid ventricular response [id number] Criteria: congestive heart failure for embolic phenomenon. [...] doing well. Currently is intermittently by a personal financial advisor. Stage: CKD-3b. Albumin Stage: A1. There has [...] 2023-04 RSV( ) 2024-08 PREVNAR 20 Surgical Yzhnhoc4671-57 Lt. GHH7408-24 Right WEQ5388-31 Rt. Piobnfzc2453-63 Left Laser Cataract mekzqkox0390-45 Lt. xavyovft4829-07 Lt Iyrqbotc5126-68 Laser Left Exq3409-38 Right Iivxzsno2944-40 Rt. Detached Retina Preventative Testing( ) 05/18/2024 Albumin 3.8 G/DL N( ) 05/18/2024 HAIC 6.5 % OF TOTAL HGB H( ) 01/12/2024 Ophthalmology( ) 10/13/2023 Micro Albumin 0.4 MG/DL N( ) 04/23/2016 PSA 1.2 NG/ML N( ) 07/05/2013 Colonoscopy (5 years) 07/05/2018 Social HistoryDoes not smoke cigarettes. 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 Family HistoryMother 77 years oldFather 79 years old3 Brothers 1 Living2 Sisters 0 LivingMother Hx: DM, HTNFather Hx: MVABrother Hx: DM (4) , HTN (2) , Ca of Brain (1) CVA(1) Dementia(1)Sisters Hx: CVA(1), Dementia(1), COVID TEST RESULT RANGE UNITSCBC (INCLUDES DIFF/PLT) Date: 05/18/2024WHITE BLOOD CELL COUNT 6.8 3.8-10.8 THOUSAND/ULHEMOGLOBIN 9.4 13.2-17.1 G/DLHEMATOCRIT 30.3 38.5-50.0 %PLATELET COUNT 218 140-400 THOUSAND/ULCOMPREHENSIVE METABOLIC PANEL Date: 05/18/2024SODIUM 137 135-146 MMOL/LPOTASSIUM 4.4 3.5-5.3 MMOL/LUREA NITROGEN (BUN) 73 7-25 MG/DLCREATININE 2.59 0.70-1.22 MG/DLEGFR 23 > OR = 60 ML/MIN/1.51O9IQVTNKM 138 65-99 MG/DLCALCIUM 8.9 8.6-10.3 MG/DLBILIRUBIN, TOTAL 0.5 0.2-1.2 MG/DLALKALINE PHOSPHATASE 71 35-144 U/LAST 26 10-35 U/LALT 18 9-46 U/LHEMOGLOBIN A1C Date: 05/18/2024HEMOGLOBIN A1C 6.5 <5.7 % OF TOTAL HGBLIPID PANEL W/REFL DIRECT LDL, CARDIO IQ(R) Date: 05/18/2024HOLESTEROL, TOTAL 92 <200 MG/DLHDL CHOLESTEROL 24 >39 MG/DLTRIGLYCERIDES 143 <150 MG/DLLDL-CHOLESTEROL 45 <100 MG/DL (CALC) Rhonda Ramirez MD [address] [address], [place], [address], [facility] [employer] 09/15/2024 11:59:42 01/13/20 25 text/htm l Patient Name: Brandon WagonerDate Of Service: December ( 01.12.2025 ): 1935 Age: 89 There has been approximately a 7.5 lb weight loss since 09/15/2024. This represents approximately a 4.6% change in weight. Weight change attributable to lifestyle changes. Vital Signs:Blood Pressure: Sitting Rt. Arm 112/60Pulse: Sitting 58 /min and RegularRespiratory Rate: 16Height 71 in or 1.8 mWeight 157 lb or 71.2 kgBMI 21.9Temperature: 97 F or 36.1 CPulse Oximetry: 96 % at rest on no oxygen Chief Complaint: Addressed in HPI Problems or conditions discussed in the HPI were the only ones reviewed during the encounter.Only social and family history addressed in the HPI were reviewed during this encounter. Attendant(s): NoneConstitutional and Systemic Symptoms:none Medication Reconciliation: from medication list. Dfwhyvdrwxw97/31/2023: Echocardiogram shows an estimated ejection fraction of [...] Stage: Stage I Interval Neurological Complaints no headaches. No shortness of breath, orthopnea or cardiovascular symptoms. No other symptoms related to end organ damage. Pressure has been under excellent control. Currently normal. No other end organ symptoms or findings. Therapy reviewed regarding management of hypertension and includes salt restriction and Lisinopril. #2. Atrial Fibrillation: Type: Persistent with recurrent episodes lasting longer than 7 days. Further classification: Non-valvular. Associated history of none. No attending hx of any shortness of breath, palpitations, syncopal or neurological symptoms. Current medications: no specific medication. Rate control: controlled ventricular response [id number] Criteria: hypertension, Age > 75 and and considered moderate risk for embolic phenomenon. Anticoagulation: Xarelto #3. History of chronic renal failure currently doing well. Currently is followed by a personal financial advisor. Stage: CKD-3a. Albumin Stage: A1. There has been no change in urine output or color. No fever or chills. #4. Type II Hypercholesterolaemia: Currently taking medication and tolerating well. No interval complaints of any muscle pain or arthralgia. No significant liver changes with medications. Last lipid panel: excellent control. Therapy reviewed regarding treatment of cholesterol management and include diet and Lipitor and Vascepa. #5. Type II Diabetes: Has had no polyuria polyphagia or polydipsia. Has had no hypoglycemic like responses. No new history of any numbness, tingling, weakness or visual problems. No nausea, anorexia or other constitutional symptoms. There has been no foot problems or non healing lesions. The last HAIC was DCCT HAIC: 6.8 Calculated MB mg%. CGM: No. Average blood sugars 125-150 mg%. Checking sugars : approximately once daily. Medication Types Include: GLP-1, Sulfonylureas and SGLT2 inhibitors Secondary complications include none. Macro-vascular complications include none. Therapy reviewed regarding diabetic management and include Farxiga, Glyburide and Trulicity Compliance: good Renal Protection: ROBBIE inhibitors Lipid management: statins Urinary microalbumin: A1 . Ophthalmological: has seen eye doctor within the last year. Control: Good Control 6.2 - 7.0 Active Medication ListAllopurinol 100 MG (TABLET - ORAL) Once DailyPreservision Vitamins DailyLasix 40 MG TABLET Twice A DayLipitor 40 MG (TABLET - ORAL) One Daily [...] (TABLET - ORAL) Once Daily Vaccination and ImmunizationImmunizations and Vaccinations Discussed and Implemented if feasible In the Office. Else referred to pharmacies. ( ) 2007-06 PNEUMOVAX( ) 2024-08 INFLUENZA( ) 2007-04 ZOSTAVAX (SHINGLES)( ) 2014-09 PREVNAR 13 GC( ) 2014-09 SHINGRIX( ) 2021-05 COVID MODERNA( ) 2024-03 COVID BOOSTER MODERNA( ) 2023-04 RSV( ) 2024-08 PREVNAR 20 Surgical Pceuzbk6229-01 Lt. UST4947-75 Right YKL6713-50 Rt. Irohipbr9946-29 Left Laser Cataract ilggyczi4668-37 Lt. fmopnjnf0804-41 Lt Xclhypwr3641-20 Laser Left Wfr3905-88 Right Qhabpfkd7887-55 Rt. Detached Retina Preventative TestingPreventative Testing Discussed and Scheduled if Acceptable to Patient ( ) 12/20/2024 Ophthalmology( ) 09/16/2024 Albumin 4.0 G/DL N( ) 09/16/2024 HAIC 6.8 % OF TOTAL HGB H( ) 10/13/2023 Micro Albumin 0.4 MG/DL N( ) 04/23/2016 PSA 1.2 NG/ML N( ) 07/05/2013 Colonoscopy (5 years) 07/05/2018 Social HistoryDoes not smoke cigarettes. 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 Family HistoryMother 77 years oldFather 79 years old3 Brothers 1 Living2 Sisters 0 LivingMother Hx: DM, HTNFather Hx: MVABrother Hx: DM (4) , HTN (2) , Ca of Brain (1) CVA(1) Dementia(1)Sisters Hx: CVA(1), Dementia(1), COVID TEST RESULT RANGE UNITSCBC (INCLUDES DIFF/PLT) Date: 09/16/2024WHITE BLOOD CELL COUNT 7.8 3.8-10.8 THOUSAND/ULHEMOGLOBIN 11.1 13.2-17.1 G/DLHEMATOCRIT 34.2 38.5-50.0 %PLATELET COUNT 227 140-400 THOUSAND/ULCOMPREHENSIVE METABOLIC PANEL, PLASMA Date: 09/16/2024SODIUM 141 135-146 MMOL/LPOTASSIUM 3.7 3.4-4.8 MMOL/LGLUCOSE 152 65-99 MG/DLUREA NITROGEN (BUN) 43 7-25 MG/DLCREATININE 1.94 0.70-1.22 MG/DLCALCIUM 8.9 8.6-10.3 MG/DLHEMOGLOBIN A1C Date: 09/16/2024HEMOGLOBIN A1C 6.8 <5.7 % OF TOTAL HGBLIPID PANEL, STANDARD Date: 09/16/2024HOLESTEROL, TOTAL 95 <200 MG/DLHDL CHOLESTEROL 27 > OR = 40 MG/DLTRIGLYCERIDES 130 <150 MG/DLLDL-CHOLESTEROL 47 MG/DL (CALC) Rhonda Ramirez MD [address] [facility], [place], [address], [place] [facility] 01/12/2025 12:21:24 05/11/20 25 text/htm l Patient Name: Brandon Blackburn Of Service: April ( 05.11.2025 ): 1935 Age: 89 Vital Signs:Blood Pressure: Sitting Rt. Arm 112/58Pulse: Sitting 58 /min and RegularRespiratory Rate: 16Height 71 in or 1.8 mWeight 157 lb or 71.2 kgBMI 21.9Temperature: 97.2 F or 36.2 CPulse Oximetry: 99 % at rest on no oxygen Chief Complaint: Addressed in HPI Problems or conditions discussed in the HPI were the only ones reviewed during the encounter.Only social and family history addressed in the HPI were reviewed during this encounter. Attendants(s) + WifeConstitutional and Systemic Symptoms:none Medication Reconciliation: from medication list. Ncopvxvfgnu54-01-8057: MRI lumbar spine there is advanced degenerative [...] Stage: Stage I Interval Neurological Complaints no headaches. No shortness of breath, orthopnea or cardiovascular [...] diet and Lipitor. #3. Atrial Fibrillation: Type: Persistent with recurrent episodes lasting longer than 7 days. Further classification: Lone atrial fibrillation. Associated history of HTN and diabetes. No attending hx of any shortness of breath, palpitations, syncopal or neurological symptoms. Current medications: no specific medication. Rate control: controlled ventricular response [id number] Criteria: hypertension, Age > 75 and and considered moderate risk for embolic phenomenon. Anticoagulation: Xarelto #4. Type II Diabetes: Has had no polyuria polyphagia or polydipsia. Has had no hypoglycemic like responses. No new history of any numbness, tingling, weakness or visual problems. No nausea, anorexia or other constitutional symptoms. There has been no foot problems or non healing lesions. The last HAIC was No. CGM: 125-150 mg%. Average blood sugars not at all. Checking sugars : GLP-1, Sulfonylureas and SGLT2 inhibitors. Medication Types Include: none Secondary complications include none. Macro-vascular complications include Farxiga, Glyburide and Trulicity. Therapy reviewed regarding diabetic management and include good Compliance: ROBBEI inhibitors Renal Protection: statins Lipid management: A1 Urinary microalbumin: has seen eye doctor within the last year . Ophthalmological: Intermediate Control 7.1 - 8.0. Control: Intermediate Control 7.1 - 8.0#5. Chronic renal failure stage IIIB clinically stable. Is followed on a regular basis by Nephrology. Active Medication ListAllopurinol 100 MG (TABLET - ORAL) Once DailyPreservision Vitamins DailyLasix 40 MG TABLET Twice A DayLipitor 40 MG (TABLET - ORAL) One Daily [...] 10 MG (TABLET - ORAL) Once Daily Adverse Drug Reactions ReviewedNo Known Adverse Drug Reactions! Vaccination and Immunization( ) 2007-06 PNEUMOVAX( ) 2024-08 INFLUENZA( ) 2007-04 ZOSTAVAX (SHINGLES)( ) 2014-09 PREVNAR 13 GC( ) 2014-09 SHINGRIX( ) 2021-05 COVID MODERNA(X) 2023- COVID BOOSTER MODERNA( ) 2023-04 RSV( ) 2024-08 PREVNAR 20Immunizations and Vaccinations Discussed and Implemented if feasible In the Office. Else referred to pharmacies. Surgical Phpqfoe9112-08 Lt. PBP0273-69 Right OKC7137-29 Rt. Eqskqbrh5196-58 Left Laser Cataract xloqmprn1943-05 Lt. clqdkdcd6228-41 Lt Kmtbaeqb2778-62 Laser Left Gep3012-66 Right Lsjtxcnj5092-88 Rt. Detached Retina Preventative Testing: (X) Due (?) Optional( ) 03/28/2025 Albumin 4.0 G/DL N( ) 01/13/2025 HAIC 7.1 % OF TOTAL HGB H( ) 12/20/2024 Ophthalmology( ) 10/13/2023 Micro Albumin 0.4 MG/DL N( ) 04/23/2016 PSA 1.2 NG/ML N(?) 07/05/2013 Colonoscopy (5 years) 07/05/2018Preventative Testing Discussed with Patient and Attendants Social HistoryDoes not smoke cigarettes. 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 Vaccination and Immunization( ) 2007-06 PNEUMOVAX( ) 2024-08 INFLUENZA( ) 2007-04 ZOSTAVAX (SHINGLES)( ) 2014-09 PREVNAR 13 GC( ) 2014-09 SHINGRIX( ) 2021-05 COVID MODERNA(X) 2024-03 COVID BOOSTER MODERNA( ) 2023-04 RSV( ) 2024-08 PREVNAR 20Immunizations and Vaccinations Discussed and Implemented if feasible In the Office. Else referred to pharmacies. Surgical Rfmwexy7707-67 Lt. LHZ3493-97 Right TVT4623-69 Rt. Lkocvrxh7374-52 Left Laser Cataract ydddugju6424-94 Lt. abpvofmy9518-56 Lt Xqxxotbh1665-43 Laser Left Bqu8132-80 Right Dzhhiwqb3091-15 Rt. Detached Retina Preventative Testing: (X) Due (?) Optional( ) 03/28/2025 Albumin 4.0 G/DL N( ) 01/13/2025 HAIC 7.1 % OF TOTAL HGB H( ) 12/20/2024 Ophthalmology( ) 10/13/2023 Micro Albumin 0.4 MG/DL N( ) 04/23/2016 PSA 1.2 NG/ML N(?) 07/05/2013 Colonoscopy (5 years) 07/05/2018Preventative Testing Discussed with Patient and Attendants Social HistoryDoes not smoke cigarettes. 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 Family HistoryMother 77 years oldFather 79 years old3 Brothers 1 Living2 Sisters 0 LivingMother Hx: DM, HTNFather Hx: MVABrother Hx: DM (4) , HTN (2) , Ca of Brain (1) CVA(1) Dementia(1)Sisters Hx: CVA(1), Dementia(1), COVID TEST RESULT RANGE UNITSCBC (INCLUDES DIFF/PLT) Date: 03/28/2025WHITE BLOOD CELL COUNT 9.1 3.8-10.8 THOUSAND/ULHEMOGLOBIN 11.3 13.2-17.1 G/DLHEMATOCRIT 35.4 38.5-50.0 %PLATELET COUNT 217 140-400 THOUSAND/ULLIPID PANEL, STANDARD Date: 5CHOLESTEROL, TOTAL 99 <200 MG/DLHDL CHOLESTEROL 25 > OR = 40 MG/DLTRIGLYCERIDES 149 <150 MG/DLLDL-CHOLESTEROL 51 MG/DL (CALC)HEMOGLOBIN A1C Date: 01/13/2025HEMOGLOBIN A1C 7.1 <5.7 % OF TOTAL HGB Rhonda Ramirez MD [address] [facility] [address], [place], [address], [place] [facility] 05/11/2025 11:53:35
--- OUTSIDE RECORDS SUMMARY | 2025-07-10 11:45 | XMS_ITS | Clinical Summary ---
Author Organization [facility] Grisel Leal Address [address] [place] [address] Care Team Providers Care Order Picker/Assembler Name Role Phone Jamal Ramirez MD Primary Care Provider [phone] Allergies No known active allergies Medications dapagliflozin [...] mg by mouth daily. Active Vit C-Vit Z-Dqrgts-WvBg-Rachel tein (PRESERVISION) 226-90-0.8-5 mg Capsule Take 1 [...] Encounters Date Type Department Care Team Description 07/10/2025 Orders Only [facility] Oncology and Hematology - Ward [address] [place] [address] Chronic anemia 06/26/2025 Orders Only [facility] Oncology and Hematology - Ward [address] [place] [address] Chronic anemia 06/14/2025 External Device Data STL ABSTRACTION Provider, Abstract 06/14/2025 External Device Data STL ABSTRACTION Provider, Abstract 06/12/2025 Orders Only [facility] Oncology and Hematology - Ward [address] [place] [address] Chronic anemia 06/07/2025 External Device Data STL ABSTRACTION Provider, Abstract 06/06/2025 External Device Data STL ABSTRACTION Provider, Abstract 05/29/2025 Orders Only [facility] Oncology and Hematology - Ward [address] [place] [address] Chronic anemia 05/25/2025 9:45 AM CDT Office Visit [facility] Oncology and Hematology - Ward [address] [place] [address] Anson Brasher MD Chronic anemia (Primary Dx) 05/16/2025 Orders Only [facility] Oncology and Hematology - Ward [address] [place] [address] Anson Brasher MD 05/15/2025 Orders Only [facility] Oncology and Hematology - Ward [address] [place] [address] Chronic anemia 05/02/2025 External Device Data STL ABSTRACTION Provider, Abstract 05/02/2025 External Device Data STL ABSTRACTION Provider, Abstract 05/01/2025 Orders Only [facility] Oncology and Hematology - Ward [address] [place] [address] Sinan Calderon MD Chronic anemia 04/17/2025 Orders Only [facility] Oncology and Hematology - Ward [address] [place] [address] Sinan Calderon MD Chronic anemia from Last [...] Sign Reading Time Taken Comments Blood Pressure 120/58 05/25/2025 9:17 AM CDT Pulse 71 05/25/2025 9:17 AM CDT Temperature 36.1 C (97 F) 05/25/2025 9:17 AM CDT Respiratory Rate 15 05/25/2025 9:17 AM CDT Oxygen Saturation 94% 05/25/2025 9:17 AM CDT Inhaled Oxygen Concentration - - Weight 69.9 kg (154 lb) 05/25/2025 9:17 AM CDT Height 182.9 cm (6') 06/24/2023 1:18 PM EDGE PLUGGER Body Mass Index 20.89 06/24/2023 1:18 PM EDGE PLUGGER Plan of Treatment Upcoming Encounters Date Type Department Care Team (Late st Contact Info) Description 09/26/2025 9:15 AM EDGE PLUGGER Office Visit [facility] Oncology and Hematology - Ward [address] [place] [address] Anson Brasher MD [address] [facility] [employer] [address] [place] [address] Health Maintenance Due Date Last Done [...] Procedure Name Priority Date/Time Associated Diagnosis Comments BASIC METABOLIC PANEL Routine 05/15/2025 1:02 PM CDT from Last 3 Months Results * BASIC METABOLIC PANEL (05/15/2025 1:02 PM CDT) Blood Anson Brasher MD CHEMISTRY ORDERABLES Final Resu lt from Last 3 Months Insurance MEDICARE PART A AND B [facility] Care Teams Order Picker/Assembler Relationship Specialty Start Date End Date Jamal Ramirez MD [address] [address] PCP - General Internal Medicine 06/24/23
--- OUTSIDE RECORDS SUMMARY | 2025-07-10 11:45 | XMS_ITS | Continuity of Care Document ---
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 Plan of Treatment Reminders Order Date Submit Date Provider Last Modified By Organization Details Last Modified Time Details Appointments None recorde d. Lab lipid panel, serum 025 05/11/20 [employer] [facility], [address], [place], [address], 5 12:51:43 HbA1c (hemogl obin A1c), blood 025 05/11/20 [employer] [facility], [address], [place], [address], 5 15:46:52 Referral None recorde d. Procedures None recorde d. Surgeries None recorde d. Imaging None recorde d. Medication Orders None recorde d. Patient TargetsNo targets recorded. Patient Instructions Encounter Date Encounter Id Patient Instructions Last Modified By Organization Details Last Modified Time 05/11/2025 [id number] Follow-up hypertension, paroxysmal and persistent atrial fibrillation, [...] Created: Rhonda Ramirez M.D. 05.11.2025 10:53 AM [email or web address] Not available 05/11/2025 11:53:08 Reason for Referral None Reported. Results Created Date Observation Date Name Description Value Unit Range Abnormal Flag Note LastModifiedBy Organization Detail LastModifiedTime 06/24/2006/20/2025 , [facility] ardio gram No observ ation record ed. [address] [facility] [address], [place], [address], 06/24/2025 16:29:56 06/24/2005/15/2025 gregory r monit or No observ ation record ed. [address] [facility] [address], [place], [address], 06/24/2025 16:30:38 Result Notes None recorded. 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 Not Available [facility] 3 17:10:39 Radiotherapy follow-up 329893286 Active Not Available [facility] 3 17:10:39 Knee joint effusion 462370730 Active Not Available [facility] 3 17:10:39 Glaucoma 07532126 Active Not Available [facility] 3 17:10:39 Osteoarthriti s of hip 803311713 Active Not Available [facility] 17:10:39 Osteoarthriti s of knee 432500746 Active Not Available [facility] 3 17:10:39 Pure hypercholeste rolemia 358535757 Active Rhonda Ramirez MD [address] [facility], [facility] [address], [place], [address] , [place] [facility] [employer] [facility] 5 11:46:10 Low back pain 387307967 Active Not Available [facility] 3 17:10:39 Osteoarthriti s 828579035 Active Not Available [facility] 3 17:10:39 Chronic kidney disease stage 3 362886289 Active Rhonda Ramirez MD [address], [place], [address] , [facility] 5 11:51:59 Type 2 diabetes mellitus 37442818 Active DAVID Mccarthy, [facility] 5 16:32:08 Derangement of knee 98947127 Active Not Available [facility] 3 17:10:39 Degeneration of intervertebra l disc 10456288 Active Not Available [facility] 3 17:10:39 Iron deficiency anemia 46641566 Active Not Available [facility] 3 17:10:39 Gout 02875271 Active Not Available [facility] 3 17:10:39 Prostatitis 1138151 Active Not Available [facility] 3 17:10:39 Diastolic heart failure 170020160 Active 2018 Not Available [facility] 3 17:10:39 Polyp of colon 90452707 Active 2019 Not Available [facility] 3 17:10:39 Atrial fibrillation 10305474 Active 2020 Rhonda Ramirez MD [address], [facility] [address], [place], [address] , [facility] 5 11:46:05 Cellulitis of foot 799368583 Active 2021 Not Available [facility] 3 17:10:39 Essential hypertension 67459873 Active 2021 Rhonda Ramirez MD [address], [facility] [address], [place], [address] , [facility] 5 11:46:00 COVID-19 886973903 Active 2021 Not Available [facility] 3 17:10:39 Type 2 diabetes mellitus without complication 588583668 Active 2022 Rhonda Ramirez MD [address], [place], [address] , [facility] 5 11:46:16 Diarrhea 68577460 Active 2022 Not Available [facility] 3 17:10:39 Anemia 065155581 Active 2022 Not Available [facility] 3 17:10:39 Spinal stenosis of lumbar region 98379810 Active 2023 Rhonda Ramirez MD [address], [facility] [address], [place], [address] , [facility] 4 17:12:31 Intermittent claudication 65782317 Active 2023 Lashaun cabezas, [facility] 4 17:19:26 Lumbar radiculopathy 664132268 Active 2023 Lashaun cabezas, [facility] 4 17:21:08 Lumbar spondylosis 680071565 Active 2023 Sue Emery CMA null, [facility] 4 16:40:24 Edema of lower extremity 181200848 Active 2024 Sue Emery CMA null, [facility] 5 11:46:46 Problem Notes None recorded. Procedures Surgical History Date Name Laterality Status Provider Name and Address Organization Details Recorded Time 4 Medicare Wellness CPT Code, subsequent completed Cara Altamirano RN [facility] 05/12/2024 11:16:17 3 Medicare Wellness CPT Code, subsequent completed Cara Altamirano RN [facility] 05/01/2023 11:47:36 Imaging Results None recorded. Procedure Notes None recorded. Medical Equipment None Reported. Allergies Allergen ID Allergen Name Allergen Category Reaction Reaction Severity Criticality Documentation Date Start Date Code Code System Note Provider Name and Address Organization Details Recorded Time 72683 Bydureon medicatio n diarrhea Not available Not available 10/15/2022 16537 64 RxNorm Not Available [facility] 3 13:55:00 Medications Name Sig Start Date [...] Not Available Not Available Not Avai lable [place] 3 twice a day 2012 active Not [...] Not Available Not Available Vitals Date Recorded Heart rate Provider Name an d Address Organization Details Last Updated DateTime 05/11/2025 58 /min Rhonda Ramirez MD [address], [facility] [address], [place], [address], [employer] 05/11/2025 11:46:57 Date Recorded Body height Body mass index (BMI) Body weight Body temperature Oxygen saturation Systolic And Diastolic Provider Name and Address Organization Details Last Updated DateTime 180.34 cm 21.9 kg/m2 42471 g 97.2 [degF] 99 % 112/58 mm[Hg] Sary Smalls [employer] 11:42:07 Social History Question Answer Notes LastModified by Organization Details LastModified Time Tobacco Smoking Status Never Smoker Not Available [facility] 10/15/2022 13:52:28 Do You Have An Advance Directive? Yes MIGRATION.0301 [id number] Information not available 10/15/2022 Are You Blind Or Do You Have Difficulty Seeing? No MIGRATION.0301 [id number] Information not available 10/15/2022 In The 14 Days Before Symptom Onset, Have You Had Close Contact With A Laboratory-confi rmed COVID-19 While That Case Was Ill? No MIGRATION.0301 968062 Information not available 10/15/2022 In The 14 Days Before Symptom Onset, Have You Had Close Contact With A Person Who Is Under Investigation For COVID-19 While That Person Was Ill? No MIGRATION.0301 146652 Information not available 10/15/2022 Are You Deaf Or Do You Have Serious Difficulty Hearing? Yes Has Hearing Aids [email or web address] Information not available 05/12/2024 What Type Of Diet Are You Following? REGULAR MIGRATION.0301 070283 Information not available 10/15/2022 Have There Been Any Changes To Your Family Or Social Situation? No MIGRATION.0301 207337 Information not available 10/15/2022 What Is The Fluoride Status Of Your Home? Unknown MIGRATION.0301 502858 Information not available 10/15/2022 Are There Any Guns Present In Your Home? Yes MIGRATION.0301 906725 Information not available 10/15/2022 Do You Use Insect Repellent Routinely? No MIGRATION.0301 190234 Information not available 10/15/2022 [facility] M[facility].0301 328815 Information not available 10/15/2022 Guns Present In The Home? Yes [email or web address] Information not available 05/01/2023 Are You Able To Care For Yourself? Yes [email or web address] Information not available 05/01/2023 Are You Blind Or Do Yo Have Difficulty Seeing? No [email or web address] Information not available 05/01/2023 Are You Deaf Or Do You Have Serious Difficulty Hearing? Yes [email or web address] Information not available 05/12/2024 Live Alone Of With Others? With Others [email or web address] Information not available 05/01/2023 Do You Have A Medical Power Of Floral Arranger? Yes [email or web address] Information not available 05/01/2023 What Was The Date Of Your Most Recent Tobacco Screening? 05/12/2024 Information not available 05/12/2024 Do You Have Any Pets? No MIGRATION.0301 510592 Information not available 10/15/2022 What Is Your Relationship Status? MIGRATION.0301 169143 Information not available 10/15/2022 Do You Use Your Seat Belt Or Car Seat Routinely? Yes MIGRATION.0301 954137 Information not available 10/15/2022 Do You Have Smoke And Carbon Monoxide Detectors In Your Home? Yes MIGRATION.0301 676510 Information not available 10/15/2022 Are You Passively Exposed To Smoke? No MIGRATION.0301 611966 Information not available 10/15/2022 Are There Any Smokers In Your House? No MIGRATION.0301 928577 Information not available 10/15/2022 Do You Use Sunscreen Routinely? Yes MIGRATION.0301 514608 Information not available 10/15/2022 Have You Recently Traveled Abroad? No MIGRATION.0301 342547 Information not available 10/15/2022 Do You Have Difficulty Walking Or Climbing Stairs? No MIGRATION.0301 683646 Information not available 10/15/2022 Do You Have Any Dietary Restrictions? No MIGRATION.0301 190343 Information not available 10/15/2022 Sex: Unknown Functional Status Question Answer Note LastModified by Organizat ion Details LastModified Time What is your level of alcohol consumption? None MIGRATION.457888 2934 Information not available 10/15/2022 Do you have transportation difficulties? No MIGRATION.324661 4915 Information not available 10/15/2022 Are you able to walk independently without assistance or assistive devices? YESWOREST MIGRATION.361626 8903 Information not available 10/15/2022 Do you have difficulty doing errands alone? No MIGRATION.902038 0267 Information not available 10/15/2022 Are you able to care for yourself independently? Yes MIGRATION.474001 7956 Information not available 10/15/2022 Do you have difficulty dressing, bathing, grooming, or toileting? No MIGRATION.632977 8179 Information not available 10/15/2022 Do you or have you ever used e-cigarettes or vape? Never used electronic cigarettes MIGRATION.250998 1572 Information not available 10/15/2022 What is your exercise level? Occasional [email or web address] Information not available 05/12/2024 Mental Status Question Answer Note LastModified by Organizat ion Details LastModified Time Do you have difficulty concentrating, remembering or making decisions? No MIGRATION.103241805 6 Information not available 10/15/2022 Family History [...] HAVE YOU BEEN HOSPITALIZED OR SEEN IN TH E ER IN THE PAST YEAR ? N [...] Details Recorded Time Pneumococcal conjugate PCV20, polysaccharide PAC953 conjugate, adjuvant, PF 5 completed Sary Smalls [employer] 09/22/2024 15:13:55 SARS-COV-2 (COVID-19) vaccine, UNSPECIFIED 2 completed Not Available [facility] 05/07/2023 03:14:03 influenza nasal, unspecified formulation 2 completed Not Available [facility] 05/07/2023 03:14:03 SARS-COV-2 (COVID-19) vaccine, UNSPECIFIED 4 completed Saryroque Smalls [employer] 05/12/2024 11:12:43 Influenza, high-dose, trivalent, PF 6 completed Not Available [facility] 05/11/2025 11:03:48 Influenza, high-dose, trivalent, PF 7 completed Not Available [facility] 05/11/2025 11:03:48 Influenza, adjuvanted, trivalent, PF 9 completed Not Available [facility] 05/11/2025 11:03:48 zoster recombinant 9 completed Not Available [facility] 05/11/2025 11:03:48 Influenza, split virus, trivalent, PF 0 completed Not Available [facility] 05/11/2025 11:03:48 COVID-19, mRNA, LNP-S, bivalent, PF, 50 mcg/0.5 mL or 25mcg/0.25 mL dose 2 completed Not Available [facility] 05/11/2025 11:03:48 RSV, recombinant, protein subunit RSVpreF, adjuvant reconstituted, 0.5 mL, PF 3 completed Not Available [facility] 05/11/2025 11:03:48 Influenza, adjuvanted, quadrivalent, PF 3 completed Not Available [facility] 05/11/2025 11:03:48 COVID-19, mRNA, LNP-S, PF, erica-sucrose, 30 mcg/0.3 mL 3 completed Not Available [facility] 05/11/2025 11:03:48 Influenza, adjuvanted, trivalent, PF 4 completed Not Available [facility] 05/11/2025 11:03:48 COVID-19, mRNA, LNP-S, PF, erica-sucrose, 30 mcg/0.3 mL 5 completed Not Available [facility] 05/11/2025 11:03:48 Influenza, high-dose, trivalent, PF 5 completed Not Available [facility] 05/11/2025 11:03:48 SARS-COV-2 (COVID-19) vaccine, UNSPECIFIED 1 completed Not Available [facility] 05/07/2023 03:14:03 SARS-COV-2 (COVID-19) vaccine, UNSPECIFIED 1 completed Not Available [facility] 05/07/2023 03:14:03 zoster, unspecified formulation 9 completed Not Available [facility] 05/07/2023 03:14:03 SARS-COV-2 (COVID-19) vaccine, UNSPECIFIED 1 completed Not Available [facility] 05/07/2023 03:14:03 Influenza, split virus, quadrivalent, preservative 1 completed Not Available [facility] 05/07/2023 03:14:03 Pneumococcal conjugate PCV 13 5 completed Not Available [facility] 05/07/2023 03:14:03 Tdap 5 completed Not Available [facility] 05/07/2023 03:14:03 Past Encounters Encounter ID Performer Location Encounter Start Date Encounter Closed Date Diagnosis/Indication Diagnosis SNOMED-CT Code Diagnosis ICD10 Code Diagnosis IMO Codes Diagnosis Note [id number] Rhonda Ramirez MD [facility] Internal Med [facility] [address] [facility] [address] [place] [address] 05/11/2025 11:02:29 05/11/2025 11:56:30 Essential hypertension 58764879 I10 Atrial fibrillation 4943 6004 I48.91 Pure hypercholesterolemia 065757098 E78.00 Type 2 brea betes mellitus without complication 962137406 E11.9 Chronic ki dney disease stage 3 202489208 N18.30 Health Concerns Section Related Observation LastModified by Organization Detai ls LastModified Time None Recorded Concern Status LastModified by Organization Details LastModified Time None Recorded Payers Encounter Date Sequence Insurance Name Policy Number Policy Bermeo Covered Member ID Bermeo Member ID Guarantor Name 05/11/2025 1 [place] Brandon Wagoner [id number] Brandon Wagoner 05/11/2025 2 [facility] [id number] Brandon Wagoner [id number] Brandon Wagoner Notes Date Note Type Note Provider Name and Address Organization Details Recorded Time 05/11/2025 text/html Patient Name: Brandon WagonerDate Of Service: April ( 05.11.2025 ): 1935 [...] Systemic Symptoms:none Medication Reconciliation: from medication list. [id number]: MRI lumbar spine there is advanced degenerative [...] specific medication. Rate control: controlled ventricular response [id number] Criteria: hypertension, Age > 75 and and [...] regarding diabetic management and include good Compliance: ROBBIE inhibitors Renal Protection: statins Lipid management: A1 [...] the Office. Else referred to pharmacies. Surgical Cfvincq7081-48 Lt. TWB9250-44 Right MDP6424-77 Rt. Fllckzkb1653-84 Left Laser Cataract heppqzcn3225-65 Lt. vlgbwctd6988-53 Lt Ehwkiltz9051-81 Laser Left Ifp2429-30 Right Nivdnusj6978-92 Rt. 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 Else referred to pharmacies. Surgical Ovvqtvr6415-13 Lt. XTI4212-46 Right QNA6496-32 Rt. Hpaxwnwb6260-92 Left Laser Cataract svtlxylq4765-36 Lt. qhjqtork4208-00 Lt Rxmbavxw2303-51 Laser Left Wbb2928-38 Right Psqnakce1731-10 Rt. 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 [employer] Family HistoryMother 77 years oldFather 79 years old3 Brothers 1 Living2 Sisters 0 LivingMother Hx: DM, HTNFather Hx: MVABrother Hx: DM (4) , HTN (2) , Ca of Brain (1) CVA(1) Dementia(1)Sisters Hx: CVA(1), Dementia(1), COVID TEST RESULT RANGE UNITSCBC (INCLUDES DIFF/PLT) Date: 03/28/2025WHITE BLOOD CELL COUNT 9.1 3.8-10.8 THOUSAND/ULHEMOGLOBIN 11.3 13.2-17.1 G/DLHEMATOCRIT 35.4 38.5-50.0 %PLATELET COUNT 217 140-400 THOUSAND/ULLIPID PANEL, STANDARD Date: 01/13/2025HOLESTEROL, TOTAL 99 <200 MG/DLHDL CHOLESTEROL 25 > OR = 40 MG/DLTRIGLYCERIDES 149 <150 MG/DLLDL-CHOLESTEROL 51 MG/DL (CALC)HEMOGLOBIN A1C Date: 01/13/2025HEMOGLOBIN A1C 7.1 <5.7 % OF TOTAL HGB Rhonda Ramirez MD [address] [facility], [facility] [address], [place], [address], [place] [facility] [employer] 05/11/2025 11:53:35
[2025-07-10 11:46] LABS: Parathyroid Intact 96.8 pg/mL (14.5-75.2)
--- OUTSIDE RECORDS SUMMARY | 2025-07-10 11:46 | XMS_ITS | Encounter Summary ---
Author Organization [facility] Address [address] [place] [address] Care Team Providers Care [place] Home Demonstration Agent Name Role Phone Jamal Ramirez MD Primary Care Provider [phone] Encounter Details Date Type Department Care Team (Late st Contact Info) Description 07/10/2025 Orders Only [facility] Oncology and Hematology - Ward [address] [place] [address] Chronic anemia Social History Tobacco [...] st Contact Info) Description 09/26/2025 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
[2025-07-10 13:08] LABS: MALB Creatinine Ratio < 10.7 mg/g (0-30)
== END 2025-07-10 10:09 | disposition home or self-care (01) ==
PROVIDERS: PCP Internal Medicine; Visit Provider Internal Medicine Nephrology
DX: I12.9 Hypertensive chronic kidney disease with stage 1 through stage 4 chronic kidney disease, or unspecified chronic kidney disease (principal); N18.1 Chronic kidney disease, stage 1; E11.65 Type 2 diabetes mellitus with hyperglycemia; R60.9 Edema, unspecified; E55.9 Vitamin D deficiency, unspecified
CPT/HCPCS: 36415; 80069; 81003; 82043; 82306; 83970; 84550